=== PATIENT | female | born 1995 | race Two or more races ===

== ENCOUNTER 2024-05-14 14:04 | Inpatient (IN) | payer MEDICAID, SELFPAY ==
[2024-05-14] VITALS (14 sets, daily range): BP systolic 104–118; BP diastolic 57–85; PULSE 81–97; RESP 16–100; TEMP 36.6–37.1; O2SAT 100; BMI 19.0; BMI 18.8
--- NOTE | 2024-05-14 15:06 | PD.EDRME ---
Rapid Medical Screening Exam RME Arrival date/time: 05/14/24 14:04 29-year-old female with history of iron deficiency anemia presents to the emergency room with a chief complaint of weakness. Patient was sent over by her primary care provider for a low hemoglobin. I have greeted and performed a focused initial assessment of this patient. A comprehensive ED assessment and evaluation of the patient, analysis of all test results, and completion of the medical decision making process will be conducted by additional ED providers. Chief Complaint: Recheck/Abnormal Lab/Rx Vital signs: Vital Signs Temperature 98.0 F 05/14/24 14:49 Pulse Rate 97 05/14/24 14:49 Respiratory Rate 16 05/14/24 14:49 Blood Pressure 104/59 L 05/14/24 14:49 Pulse Oximetry (%) 100 05/14/24 14:49 Oxygen Delivery Method Room Air 05/14/24 14:49 Vital signs reviewed by provider: Yes
[2024-05-14 15:56] LABS: Basophils % (Auto) 0 % (0-2.5); Eosinophils # (Auto) 0.1 Thou/mm3 (0.0-0.5); Eosinophils % (Auto) 2 % (0-10); Immature Granulocytes % (Auto) 1 % (0-0); Immature Granulocytes Auto 0.03 Thou/mm3 (0.00-0.00); Lymphocytes # (Auto) 0.8 Thou/mm3 (1.0-4.8); Lymphocytes % (Auto) 26 % (10-50); Mean Corpuscular Hemoglobin 15.3 pg (25.0-35.0); Mean Corpuscular Volume 61 fL (80-100); Monocytes # (Auto) 0.3 Thou/mm3 (0.0-0.8); Monocytes % (Auto) 9 % (0-12); Neutrophils # (Auto) 1.9 Thou/mm3 (1.8-7.7); Neutrophils % (Auto) 62 % (37-80); Nucleated Red Blood Cell # 0.05 Thou/mm3 (0.00-0.00); Nucleated Red Blood Cell % 2 /100 WBC (0); Platelet Count 369 Thou/mm3 (140-440); Red Blood Count 1.89 Miln/mm3 (4.00-5.20); White Blood Count 3.1 Thou/mm3 (3.6-11.0)
[2024-05-14 15:59] LABS: Hematocrit 11.6 % (36.0-46.0); Hemoglobin 2.9 g/dL (12.0-16.0)
[2024-05-14 16:08] LABS: Partial Thromboplastin Time 22.2 Seconds (22.0-36.0); Prothrombin Time 11.2 Seconds (9.0-12.2)
[2024-05-14 16:21] LABS: Alanine Aminotransferase < 7 U/L (10-49); Albumin, Serum 3.2 gm/dL (3.5-5.0); Alkaline Phosphatase 50 U/L (46-116); Anion Gap 6 (7-16); Aspartate Amino Transferase < 10 U/L (0-34); BUN/Creatinine Ratio 13 Ratio (12-20); Bilirubin,Total 0.3 mg/dL (0.3-1.2); Blood Urea Nitrogen 8 mg/dL (9-23); Calcium 8.2 mg/dL (8.3-10.6); Calcium (Corrected) 8.8 mg/dL (8.5-10.1); Carbon Dioxide 20.7 mMol/L (20.0-31.0); Chloride 111 mMol/L (98-107); Creatinine (Component) 0.6 mg/dL (0.6-1.3); Estimated Creatinine Clearance 94.8 mL/min (>60); Globulin 3.2 gm/dL (2.3-3.5); Glucose 99 mg/dL (74-106); Osmolality,Calculated 273 (275-295); Potassium 3.7 mMol/L (3.4-5.1); Sodium 138 mMol/L (136-145); Total Protein 6.4 gm/dL (5.7-8.2); eGFR > 60 See Note
--- NOTE | 2024-05-14 16:55 | EDNOTE_ITS ---
<Statement entered by Rachel Almeida MD - 05/15/24 07:26> As co-signing physician, I was present and available for consult prn. I concur with the plan and care as documented by the midlevel provider. ED Recheck Abnl Lab Rx-RME/HPI General Chief Complaint: Recheck/Abnormal Lab/Rx Stated Complaint: HGB LOW Time Seen by Provider: 05/14/24 16:10 Arrival date/time: 05/14/24 14:04 RME / HPI RME / HPI narrative: 29-year-old female patient with significant history of iron deficiency anemia, last sent to us by PCP for evaluation regarding anemia. Patient's been noticing generalized body weakness, easy fatigability, dyspnea on exertion and activity, for the last 1 month. Patient denies any vomiting blood. Denies any blood in the stool denies any black tarry stool also. Patient told me that her menstruat ion is usually heavy lasting for 7 days to a month. Saw her PCP yesterday and was referred here for further management. Related Data Home Medications ?Medication ?Instructions ?Recorded ?Confirmed vitamins no.144-folic 1 tab PO DAILY 01/23/20 12/10/22 acid 400 mcg chewable tablet () ferrous sulfate 325 mg (65 mg 325 mg PO BID 01/24/20 0 12/10/22 iron) tablet (iron) Allergies Allergy/AdvReac Type Severity Reaction Status Date / Time No Known Allergies Allergy Verified 12/10/22 21:12 Review of Systems Review of Systems Narrative Review of Systems: Review of system reviewed and within normal limits except mentioned in HPI ED Exam Narrative Physical exam: VITAL SIGNS: Reviewed. GENERAL APPEARANCE: Alert and interactive, follows commands, no acute distress, HEAD AND FACE: Non-traumatic. ENT: PERRL, pale conjunctiva, eyelid no trauma, Mucous membrane moist. NECK: Supple, nontender, no nuchal rigidity. CHEST: No tenderness, no crepitus, no paradoxical movement, no retractions. LUNGS: Clear, well ventilated, symmetric, no rales, no wheezing, no ronchi, no stridor, good breath sounds bilaterally. HEART: Regular rate, regular rhythm, no murmur, no gallops. ABDOMEN: Soft, positive bowel sounds, nondistended, no guarding, nontender, no rebound, no masses, RECTAL: Deferred. GENITAL: Deferred. NEUROLOGICAL: Gross motor function intact sensory function intact, Appropriate for age. MUSCULOSKELETAL: low back nontender, full range of motion. EXTREMITIES: Nontender, full range of motion. SKIN: Color pale, dry, no rash, no lacerations, no abrasions, no contusions. LYMPHATICS: Deferred. Course Quality Measures none Orders Category Date Time Status COVID-19 Screening Questionnaire NOW Care 05/14/24 17:06 Active Decision to Admit X1 Care 05/14/24 17:06 Completed Occult Blood,Stool (Nursing) ONCE Care 05/14/24 16:55 Active Transfuse,blood/blood products ONCE Care 05/14/24 16:11 Active Consult to Gastroenterology Stat Cons 05/14/24 17:02 Ordered CBC Stat Lab 05/14/24 15:35 Completed CMP [Comprehensive Metabolic Panel] Stat Lab 05/14/24 15:35 Completed HCG Qualitative,Urine Stat Lab 05/14/24 17:08 Ordered Occult Blood, Stool (LAB) Stat Lab 05/14/24 17:05 Completed PT [Prothrombin Time with INR] Stat Lab 05/14/24 15:35 Completed PTT [Partial Thromboplastin Time] Stat Lab 05/14/24 15:35 Completed Path Review Blood Smear Stat Lab 05/14/24 15:35 Completed Type and Screen Stat Lab 05/14/24 15:35 Results prbc [Red Blood Cells] Stat Lab 05/14/24 15:35 Results Pantoprazole Inj [Protonix Inj] Med 05/14/24 17:03 Discontinued 80 mg IV X1 ONE Vital Signs Vital signs: Vital Signs Temperature 98.0 F 05/14/24 14:49 Pulse Rate 97 05/14/24 14:49 Respiratory Rate 16 05/14/24 14:49 Blood Pressure 104/59 L 05/14/24 14:49 Pulse Oximetry (%) 100 05/14/24 14:49 Oxygen Delivery Method Room Air 05/14/24 14:49 Recheck / Abnormal Lab / Rx MDM Narrative MDM Narrative:: 29-year-old female patient with significant history of iron deficiency anemia, last sent to us by PCP for evaluation regarding anemia. Patient's been noticing generalized body weakness, easy fatigability, dyspnea on exertion and activity, for the last 1 month. Patient denies any vomiting blood. Denies any blood in the stool denies any black tarry stool also. Patient told me that her menstruation is usually heavy lasting for 7 days to a month. Saw her PCP yesterday and was referred here for further management. Rectal exam was done, and tested strong positive for occult blood. There was no black tarry stool noted on the examining finger however the stool looks dark- brown. Patient is denying any abdominal pain. Patient received IV Protonix and 3 units of packed RBC. Plan of care discussed with the patient who agrees to be admitted Consulted Dr. Fuentes, GI specialist on-call, thank you Dr. Fuentes Patient data External records reviewed:: None Clinical information provided by:: patient Social determinants that could affect healthcare access:: none Patient has the following chronic illnesses:: History of anemia in the past How is presenting disease/condition affected by chronic disease/condition?: exacerbated by Evaluation data The following diagnostics were reviewed and interpreted by me:: lab results Lab and/or radiology exams considered but not ordered:: None Interpretation Summary: See results in MDM Medications / Prescriptions Medications or Prescriptions considered but not ordered:: None Medication administrations:: Medication Administration History Acetaminophen (Acetaminophen 325 Mg Tablet) 650 mg PO Q6H PRN PRN Reason: Pain 1-3 or Fever >100.1 Stop: 06/13/24 17:46 Lactated Ringer's (Lactated Ringers) 1,000 mls @ 70 mls/hr IV .[id number] ONE Stop: 05/15/24 08:20 Albumin Human (Albuminar-25 Ivpb) 25 gm in 100 mls @ 100 mls/hr IV QDAY [facility] Stop: 05/17/24 18:03 Ondansetron HCl (Ondansetron Inj 2 Mg/Ml Inj 2 Ml) 4 mg IV Q6H PRN; Protocol PRN Reason: NAUSEA OR VOMITING Stop: 06/13/24 17:46 Pantoprazole Sodium (Pantoprazole Inj 40 Mg Vial) 40 mg IVP QDAY [facility] Stop: 06/14/24 08:59 Vitamin B Complex/Vit C/Folic Acid (Vitamin B Complex Tablet) 1 tab PO DAILY [facility] Stop: 06/13/24 18:14 Discontinued Medications Pantoprazole Sodium (Pantoprazole Inj 40 Mg Vial) 80 mg IV X1 ONE Stop: 05/14/24 17:04 Last Admin: 05/14/24 17:24 Dose: 80 mg Documented By: SL Polyethylene Glycol/Electrolytes (Na [place]/Nahco3/[place]/Peg (Golytely) 4,000 Ml Btl) 4,000 ml PO X1 ONE Stop: 05/14/24 18:07 IV Protonix and 2 units of packed RBC Consultations Consultation(s) initiated? (list below): Yes Consultation #1 (Physician, Specialty, Details): Dr. Fuentes Diagnosis Recheck Differential Diagnosis: other (Upper GI bleed, severe anemia,) Most likely diagnosis given after review of the tests above:: Anemia, upper GI bleed Admission Indicated Admission indicated?: indicated Explain why admission is indicated or not indicated:: Patient is to be admitted for further management Admission Request Was there a request for admission?: Yes Admission Attestation Admission request attestation: Discussed case with [Dr Smith] from Hospitalist service regarding admission. Discussed patients ED course, exam findings, labs, and radiology results. The Hospitalist [agrees] to accept the patient for admission. Disposition Plan Disposition Plan: Admit Discharge Plan Plan Patient Disposition: Admit Acute Care w/in Hospital Disposition Comment: stable Problem List Clinical Impression: Severe anemia, Upper GI bleed
[2024-05-14 17:14] LABS: Path Review Blood Smear Sent to Pathologist
[2024-05-14 17:24] LABS: OBS Developer Expiration Date 112312026; OBS Performed By CHAVM1; OBS QC OK? Yes; Occult Blood, Stool Positive (Negative)
[2024-05-14] MEDS: PANTOPRAZOLE INJ 40 MG VIAL 80 MG IV (17:24)
--- NOTE | 2024-05-14 17:50 | XR_ITS ---
Examination: Pelvic ultrasound, transabdominal, complete Technique: Transabdominal ultrasound of the pelvis performed using grayscale imaging Date and time of exam: May 14, [id number] hrs. Indications: Anemia, irregular heavy menses months Findings: Uterus 8.0 x 4.5 x 8.7 cm Endometrial stripe 1.3 cm No uterine mass or intrauterine gestation Mild fluid in the cul-de-sac Right ovary 3.7 cm arterial flow Left ovary 5.0 cm arterial flow 3.8 cm cyst Impression: No uterine mass or intrauterine gestation Left ovarian simple cyst 3.8 x 3.0 x 3.6 cm
--- NOTE | 2024-05-14 18:03 | ESHP_ITS ---
Documentation for date of: 05/14/24 HPI History of Present Illness History of present illness: The patient is a 29-year-old female with a past medical history of iron deficiency anemia presenting to the ED on 05/14/2024 after she had been sent by her PCP for evaluation. Per the patient, she had been having generalized weakness with easy fatigability for the past month, notices that she is unable to carry out her regular activities at home including cleaning which she previously used to do every day. She also notices that she had some shortness of breath anytime she tried to do more than minimal physical activity. Although the patient does not have any chhaya rectal bleeding or hematemesis, she does mention that her menses last about 7 days a month, sometimes more. This is not a new development, she has had long and heavy menses since menarche. Since she has been iron deficient for a while, she has taken iron supplements in the past but has not had any since prior to her last , more than a year ago. She denies any abdominal pain, constipation, diarrhea or dark tarry stools. ED course: In the ED, patient was hemodynamically stable. Pertinent labs showed WBC 3.1 Hgb 2.9 with hematocrit of 11.6 MCV 61 PLT 369 normal coagulation panel sodium 138 potassium 3.7 chloride 111 BUN 8 creatinine 0.6 albumin 3.2 corrected calcium 8.8. Stool occult blood was done which was positive. GI Dr. Fuentes was consulted recommended to admit the patient for possible endoscopy/colonoscopy. PMHx-as above PSHx-none Social history-does not smoke, occasionally drinks, no illicit drug use Home meds-ferrous sulfate intermittently Review of Systems Review of Systems Narrative Review of Systems: GENERAL: Admits generalized weakness HEENT: Denies headache or visual/hearing changes. Denies nasal discharge. NEURO: Denies unusual weakness or difficulty speaking. CARDIO: Denies chest pain or palpitations. PULM: Admits occasional SOB GI: Denies abdominal pain, N/V/C/D/reflux/gas, bright red blood per rectum or melena. Reports having BMs. URO: Denies burning/itching/pain/urinary changes. MSK/EXT/SKIN: Denies joint/skeletal/muscle pain, issues/changes in upper or lower extremities, itchiness, or superficial pain. PSYCH: Cooperative, pleasant mood & affect. Exam Vital Signs Temp Pulse Resp BP Pulse Ox O2 Del Method 98.4 F 97 18 105/57 L 100 Room Air 05/14/24 17:12 05/14/24 17:12 05/14/24 17:12 05/14/24 17:12 05/14/24 17:12 05/14/24 17:12 Narrative Exam GENERAL: AAOX3, pale, afebrile, anicteric NEURO: INTERMODAL DISPATCHER grossly intact, moves extremities x4 HEENT: Moist mucosa. Eyes open, symmetrical, & clear CARDIO: No chest pain on palpation. Heart RRR, no obvious murmurs PULM: No noted coughing/dyspnea. Lungs CTA B/L GI: Abdomen soft, nondistended, no pain on palpation. BSx4 URO/CEMENT SIDE LASTER:: No further abnormalities noted. SKIN/MSK/EXT: No wounds/rashes/edema/amputations, no pain on palpation. Pedal pulses present B/L Results: Labs 05/14/24 15:35 05/14/24 15:35 Labs: Short CBC 05/14/24 Range/Units 15:35 WBC 3.1 L (3.6-11.0) Thou/mm3 Hgb 2.9 L* (12.0-16.0) g/dL Hct 11.6 L* (36.0-46.0) % Plt Count 369 (140-440) Thou/mm3 BMP 05/14/24 15:35 Sodium 138 Potassium 3.7 Chloride 111 H Carbon Dioxide 20.7 BUN 8 L Creatinine 0.6 Glucose 99 Calcium 8.2 L Liver Function 05/14/24 Range/Units 15:35 Total Bilirubin 0.3 (0.3-1.2) mg/dL AST < 10 (0-34) U/L ALT < 7 L (10-49) U/L Alkaline Phosphatase 50 (46-116) U/L Albumin 3.2 L (3.5-5.0) gm/dL Quality Measures Quality Measures none Medications Home Medications and Allergies Home Medications ?Medication ?Instructions ?Recorded ?Confirmed ?Type vitamins no.144-folic 1 tab PO DAILY 01/23/20 12/10/22 History acid 400 mcg chewable tablet () ferrous sulfate 325 mg (65 mg 325 mg PO BID 01/24/20 0 12/10/22 History iron) tablet (iron) Allergies Allergy/AdvReac Type Severity Reaction Status Date / Time No Known Allergies Allergy Verified 12/10/22 21:12 Visit Medications Acetaminophen (Acetaminophen 325 Mg Tablet) 650 mg PO Q6H PRN PRN Reason: Pain 1-3 or Fever >100.1 Stop: 06/13/24 17:46 Ondansetron HCl (Ondansetron Inj 2 Mg/Ml Inj 2 Ml) 4 mg IV Q6H PRN; Protocol PRN Reason: NAUSEA OR VOMITING Stop: 06/13/24 17:46 Pantoprazole Sodium (Pantoprazole Inj 40 Mg Vial) 40 mg IVP QDAY [facility] Stop: 06/14/24 08:59 Discontinued Medications Pantoprazole Sodium (Pantoprazole Inj 40 Mg Vial) 80 mg IV X1 ONE Stop: 05/14/24 17:04 Last Admin: 05/14/24 17:24 Dose: 80 mg Assessment & Plan Plan Summary: The patient is a 29-year-old female with past medical history of iron deficiency anemia presenting to the ED in 05/14/2024 from PCP with low hemoglobin. #Acute blood loss anemia #History of iron deficiency anemia #?GI bleed #Menorrhagia Patient was sent to the ED by her PCP after noting low hemoglobin on recent blood work. Per the patient, she had been having generalized weakness with easy fatigability for the past month, notices that she is unable to carry out her regular activities at home including cleaning which she previously used to do every day. She also notices that she had some shortness of breath anytime she tried to do more than minimal physical activity. Although the patient does not have any chhaya rectal bleeding or hematemesis, she does mention that her menses last about 7 days a month, sometimes more. This is not a new development, she has had long and heavy menses since menarche. Since she has been iron deficient for a while, she has taken iron supplements in the past but has not had any since prior to her last , more than a year ago. FOBT positive in the ED Plan: -Admit to MedSurg -Transfuse 3 PRBCs -Posttransfusion H&H -Clear liquid diet -IV Protonix 40 mg daily -Iron panel -Pelvic ultrasound -Pending beta-hCG -GI consulted, appreciate recommendations Health maintenance: Dispo: MedSurg Diet: Clear liquid diet GI: Pantoprazole DVT: Not indicated James: None Lines: Peripheral Code: Full Case was discussed with Dr Verde PGY-2 and attending physician, Dr Luis Hoskins MD PGY-1 Disclaimer: This note was dictated by speech recognition. Minor errors in police officer crime prevention may be present due to voice recognition software. Attending Provider Attestation/Addendum I reviewed labs, imaging, EKG, home medications and prior available records. Face to face evaluation was performed by me. I have personally examined the patient and discussed assessment and plan with the IM team. I reviewed the resident note and agree with the plan with exceptions as below. Acute blood loss anemia Microcytic anemia Generalized weakness Possible lower GI bleed History of heavy menstrual periods Patient came with severely reduced H&H. PRBC ordered in the ED. Follow-up H&H posttransfusion Continue to monitor H&H FOBT is positive. Discussed with GI: Will plan for colonoscopy. Started the patient on clear liquid diet/GoLytely May need further workup for her anemia in case her GI workup is negative Ordered pelvic ultrasound
[2024-05-14 18:48] LABS: HIV (1&2) Antibody Rapid Non-Reactive
[2024-05-14 19:07] LABS: Hepatitis A Antibody IgM Non Reactive (Non React); Hepatitis B Core Antibody IgM Non Reactive (Non React); Hepatitis B Surface Antigen Non Reactive (Non React); Hepatitis C Antibody Non Reactive (Non React)
[2024-05-14] MEDS: RINGERS LACTATED 1000 ML 1,000 ML 70 ML IV (19:40)
[2024-05-14] MEDS: ALBUMIN HUMAN 25% IVPB 25 GM/100 ML BTL IV (19:41)
[2024-05-14 20:13] LABS: HCG Qualitative,Urine Negative
[2024-05-14] MEDS: NA SU/NAHCO3/KC/PEG (Golytely) 4,000 ML BTL 4000 ML PO (20:38)
[2024-05-14] MEDS: VITAMIN B COMPLEX TABLET 1 TAB PO (20:39)
--- NOTE | 2024-05-14 23:06 | PD.IMCONS ---
HPI Data of Consult Requesting Physician: Mele Smith MD Primary Care Provider: SAPNA Tate Consult Narrative Reason for consult: Hemoglobin 2.9 hematocrit 11.6 History of present illness: 29-year-old female evaluated at request of the ER physician clinical trials assistant who presented the ER with a hemoglobin of 2.9 hematocrit 11.6 and a platelet count of 69,000 WBC count of 3.1 Patient has been feeling dizzy weak She was sent by the PCP to the ER She denies any history of chhaya hematemesis melena or hematochezia She does have heavy menstruation for about 7 days and bleeds heavily Pelvic ultrasound shows left ovarian cyst no other lesions Abdominal ultrasound done in the past shows no cholelithiasis and no organomegaly Patient is not on any NSAIDs or blood thinners cc:: cc: Mele Smith MD Review of Systems Review of Systems Systems Reviewed: All systems reviewed, normal except as documented Meds Home Medications and Allergies Home Medications ?Medication ?Instructions ?Recorded ?Confirmed ?Type ferrous sulfate 325 mg (65 mg 325 mg PO QDAY 01/24/20 05/15/24 History iron) tablet (iron) ergocalciferol (vitamin D2) 1,250 1,250 mcg PO QDAY 05/15/24 05/15/24 History mcg (50,000 unit) capsule vitamin B complex 1 tab PO QDAY 05/15/24 05/15/24 History Allergies Allergy/AdvReac Type Severity Reaction Status Date / Time No Known Allergies Allergy Verified 05/15/24 18:36 Exam Vital Signs Temp Pulse Resp BP Pulse Ox O2 Del Method 98.4 F 82 18 118/85 H 100 Room Air 05/14/24 22:39 05/14/24 22:52 05/14/24 22:52 05/14/24 22:39 05/14/24 22:39 05/14/24 22:39 Constitutional Comments: Pale chronically ill-appearing Routine Respiratory Exam Comments: Normal to auscultation Routine Abdominal Exam Comments: Soft nontender Results Labs 05/15/24 03:32 05/15/24 03:32 Labs: Short CBC 05/14/24 Range/Units 15:35 WBC 3.1 L (3.6-11.0) Thou/mm3 Hgb 2.9 L* (12.0-16.0) g/dL Hct 11.6 L* (36.0-46.0) % Plt Count 369 (140-440) Thou/mm3 BMP 05/14/24 15:35 Sodium 138 Potassium 3.7 Chloride 111 H Carbon Dioxide 20.7 BUN 8 L Creatinine 0.6 Glucose 99 Calcium 8.2 L Liver Function 05/14/24 Range/Units 15:35 Total Bilirubin 0.3 (0.3-1.2) mg/dL AST < 10 (0-34) U/L ALT < 7 L (10-49) U/L Alkaline Phosphatase 50 (46-116) U/L Albumin 3.2 L (3.5-5.0) gm/dL Assessment and Plan Additional Assessment & Plan Additional Plan: Anemia blood loss most likely menorrhagia by GI causes of blood loss needs to be ruled out Suggestions Initial test of choice is upper endoscopy with possible therapeutic intervention possible biopsies Consent obtained If EGD is negative we will consider doing a fiberoptic colonoscopy with possible therapeutic intervention prior to discharge Recommend ACCOUNT RESOLUTION SPECIALIST consultation I think her blood losses are because of the menorrhagia Thank you very much for the opportunity to participate in the care of this patient
[2024-05-15] VITALS (23 sets, daily range): BP systolic 107–152; BP diastolic 65–83; PULSE 79–104; RESP 11–99; TEMP 36.3–37.4; O2SAT 97–100; BMI 18.8
--- NOTE | 2024-05-15 00:24 | PC.NURSE ---
Spoke to MD Fuentes regarding pt is on Golytely and MD ordered for EGD in AM, per MD to continue the Golytely and he will decide in AM if he will do Colonoscopy as well
[2024-05-15] MEDS: ACETAMINOPHEN 325 MG TABLET 650 MG PO ×2 (00:32→20:56)
[2024-05-15 03:51] LABS: Basophils % (Auto) 0 % (0-2.5); Eosinophils % (Auto) 1 % (0-10); Hematocrit 27.5 % (36.0-46.0); Immature Granulocytes % (Auto) 2 % (0-0); Immature Granulocytes Auto 0.12 Thou/mm3 (0.00-0.00); Lymphocytes # (Auto) 0.9 Thou/mm3 (1.0-4.8); Lymphocytes % (Auto) 11 % (10-50); Mean Corpuscular HGB Conc 30.9 g/dl (31.0-37.0); Mean Corpuscular Hemoglobin 22.7 pg (25.0-35.0); Mean Corpuscular Volume 73 fL (80-100); Monocytes # (Auto) 0.3 Thou/mm3 (0.0-0.8); Monocytes % (Auto) 4 % (0-12); Neutrophils # (Auto) 6.1 Thou/mm3 (1.8-7.7); Neutrophils % (Auto) 83 % (37-80); Nucleated Red Blood Cell # 0.08 Thou/mm3 (0.00-0.00); Nucleated Red Blood Cell % 1 /100 WBC (0); Platelet Count 312 Thou/mm3 (140-440); RDW Standard Deviation 59.3 fL (36.4-46.3); Red Blood Count 3.75 Miln/mm3 (4.00-5.20); White Blood Count 7.4 Thou/mm3 (3.6-11.0)
[2024-05-15 03:54] LABS: Hemoglobin 8.5 g/dL (12.0-16.0)
[2024-05-15 04:05] LABS: Sed Rate (ESR) 9 mm/hr (0-20)
[2024-05-15 04:29] LABS: Alanine Aminotransferase 7 U/L (10-49); Albumin, Serum 3.3 gm/dL (3.5-5.0); Albumin/Globulin Ratio 1.1 (1.2-2.2); Alkaline Phosphatase 54 U/L (46-116); Anion Gap 5 (7-16); Aspartate Amino Transferase 20 U/L (0-34); BUN/Creatinine Ratio 10 Ratio (12-20); Bilirubin,Total 1.7 mg/dL (0.3-1.2); Blood Urea Nitrogen 6 mg/dL (9-23); C-Reactive Protein < 0.4 mg/dL (0.0-0.9); Calcium 8.4 mg/dL (8.3-10.6); Carbon Dioxide 21.1 mMol/L (20.0-31.0); Chloride 113 mMol/L (98-107); Creatinine (Component) 0.6 mg/dL (0.6-1.3); Estimated Creatinine Clearance 94.2 mL/min (>60); Globulin 2.9 gm/dL (2.3-3.5); Glucose 91 mg/dL (74-106); Magnesium 1.7 mg/dL (1.6-2.6); Osmolality,Calculated 275 (275-295); Phosphorous 2.5 mg/dL (2.4-5.1); Potassium 3.9 mMol/L (3.4-5.1); Sodium 139 mMol/L (136-145); Total Protein 6.2 gm/dL (5.7-8.2); eGFR > 60 See Note
[2024-05-15 04:30] LABS: Iron 202 mcg/dL (50-170); Percent Iron Saturation 77 % (20-55); Total Iron Binding Capacity 262 mcg/dL (250-425); Unsaturated Iron Binding 60 (225-295)
[2024-05-15] MEDS: ALBUMIN HUMAN 25% IVPB 25 GM/100 ML BTL IV (08:58)
[2024-05-15] MEDS: VITAMIN B COMPLEX TABLET 1 TAB PO (08:59)
[2024-05-15] MEDS: PANTOPRAZOLE INJ 40 MG VIAL IVP ×2 (08:59→20:48)
--- NOTE | 2024-05-15 15:13 | PD.ADDPROG ---
Addendum Progress Note Addendum Date of report being addended: 05/15/24 Narrative: Attending's attestation: None I reviewed labs, imaging, EKG, home medications and prior available records. Face to face evaluation was performed by me. I have personally examined the patient and discussed assessment and plan with the IM team. I reviewed the resident note and agree with the plan with exceptions as below. Acute blood loss anemia Microcytic anemia Generalized weakness Possible lower GI bleed History of heavy menstrual periods Patient came with severely reduced H&H. 3 PRBC ordered in the ED. Follow-up H&H posttransfusion: Improved to 8.5 Continue to monitor H&H: Stable FOBT is positive. Discussed with GI: Will plan for EGD. N.p.o. prior to the procedure May need further workup for her anemia in case her GI workup is negative Ordered pelvic ultrasound: Showed ovarian cyst but no masses, gestational bodies, or foreign bodies
--- NOTE | 2024-05-15 15:34 | ESPR_ITS ---
Documentation for date of: 05/15/24 Subjective Subjective Interval history: Patient seen at bedside. No acute overnight events. She received 3 units of PRBCs and posttransfusion H&H was 8.5. bHCG returned positive negative as well as viral antibodies. Pelvic ultrasound showed left ovarian simple cyst. GI Dr. Fuentes consulted, patient is scheduled for upper endoscopy. In the interim, can she is n.p.o., will continue Protonix and IV fluids for hydration as well as IV iron infusion. Exam Vital Signs Temp Pulse Resp BP Pulse Ox O2 Del Method 99.4 F 87 18 130/83 98 Room Air 05/15/24 12:00 05/15/24 12:00 05/15/24 12:00 05/15/24 12:00 05/15/24 12:05/15/24 12:00 Narrative Exam GENERAL: AAOX3, pale, afebrile, anicteric NEURO: PILLOWCASE FOLDER grossly intact, moves extremities x4 HEENT: Moist mucosa. Eyes open, symmetrical, & clear CARDIO: No chest pain on palpation. Heart RRR, no obvious murmurs PULM: No noted coughing/dyspnea. Lungs CTA B/L GI: Abdomen soft, nondistended, no pain on palpation. BSx4 URO/DIRECTOR OF STRATEGIC COMMUNICATIONS:: No further abnormalities noted. SKIN/MSK/EXT: No wounds/rashes/edema/amputations, no pain on palpation. Pedal pulses present B/L Objective Labs 05/16/24 05:11 05/16/24 05:11 Labs: Laboratory Results - last 24 hr 05/14/24 05/14/24 05/14/24 15:35 15:36 17:05 WBC 3.1 L RBC 1.89 L* Hgb 2.9 L* Hct 11.6 L* MCV 61 L MCH 15.3 L MCHC 25.0 L RDW Std Deviation 46.0 Plt Count 369 Neut % (Auto) 62 Lymph % (Auto) 26 [place] % (Auto) 9 Eos % (Auto) 2 Baso % (Auto) 0 Neut # (Auto) 1.9 Lymph # (Auto) 0.8 L [place] # (Auto) 0.3 Eos # (Auto) 0.1 Baso # (Auto) 0.0 Immature Gran # (Auto) 0.03 H Absolute Nucleated RBC 0.05 H Immature Gran % 1 H Nucleated RBC % 2 H Smear Path Review Sent to Pathologist ESR PT 11.2 INR 1.0 APTT 22.2 Sodium 138 Potassium 3.7 Chloride 111 H Carbon Dioxide 20.7 Anion Gap 6 L BUN 8 L Creatinine 0.6 Estim Creat Clear Calc 94.8 eGFR > 60 BUN/Creatinine Ratio 13 Glucose 99 Calculated Osmolality 273 L Calcium 8.2 L Corrected Calcium 8.8 Phosphorus Magnesium Iron TIBC Iron Saturation Unsat Iron Binding Total Bilirubin 0.3 AST < 10 ALT < 7 L Alkaline Phosphatase 50 C-Reactive Prot, Quant Total Protein 6.4 Albumin 3.2 L Globulin 3.2 Albumin/Globulin Ratio 1.0 L Urine HCG, Qual Stool Occult Blood Positive A Hepatitis A IgM Ab Non Reactive Hep Bs Antigen Non Reactive Hep B Core IgM Ab Non Reactive Hepatitis C Antibody Non Reactive HIV 1&2 Antibody Rapid Non-Reactive Blood Type A Negative Antibody Screen NEGATIVE Crossmatch See Detail Blood Bank Wristband ID Yes 05/14/24 05/15/24 19:44 03:32 WBC 7.4 D RBC 3.75 L Hgb 8.5 L D Hct 27.5 L D MCV 73 L MCH 22.7 L MCHC 30.9 L RDW Std Deviation 59.3 H Plt Count 312 D Neut % (Auto) 83 H Lymph % (Auto) 11 [place] % (Auto) 4 Eos % (Auto) 1 Baso % (Auto) 0 Neut # (Auto) 6.1 Lymph # (Auto) 0.9 L [place] # (Auto) 0.3 Eos # (Auto) 0.0 Baso # (Auto) 0.0 Immature Gran # (Auto) 0.12 H Absolute Nucleated RBC 0.08 H Immature Gran % 2 H Nucleated RBC % 1 H Smear Path Review ESR 9 PT INR APTT Sodium 139 Potassium 3.9 Chloride 113 H Carbon Dioxide 21.1 Anion Gap 5 L BUN 6 L Creatinine 0.6 Estim Creat Clear Calc 94.2 eGFR > 60 BUN/Creatinine Ratio 10 L Glucose 91 Calculated Osmolality 275 Calcium 8.4 Corrected Calcium 9.0 Phosphorus 2.5 Magnesium 1.7 Iron 202 H TIBC 262 Iron Saturation 77 H Unsat Iron Binding 60 L Total Bilirubin 1.7 H D AST 20 ALT 7 L Alkaline Phosphatase 54 C-Reactive Prot, Quant < 0.4 Total Protein 6.2 Albumin 3.3 L Globulin 2.9 Albumin/Globulin Ratio 1.1 L Urine HCG, Qual Negative Stool Occult Blood Hepatitis A IgM Ab Hep Bs Antigen Hep B Core IgM Ab Hepatitis C Antibody HIV 1&2 Antibody Rapid Blood Type Antibody Screen Crossmatch Blood Bank Wristband ID Quality Measures Quality Measures none Assessment & Plan Assessment Current Active Medications: Generic Name Dose Route Start Last Admin Trade Name Venkat PRN Reason Stop Dose Admin Acetaminophen 650 mg 05/14/24 17:47 05/15/24 00:32 Acetaminophen 325 Mg Tablet PO 06/13/24 17:46 650 mg Q6H PRN Administration Pain 1-3 or Fever >100.1 Dextrose/Sodium Chloride 1,000 mls @ 60 mls/hr 05/15/24 15:30 D5-Ns IV 06/14/24 15:29 .[id number] DAKSHA Iron Sucrose 200 mg 05/15/24 15:30 Iron Sucrose Cplx Inj 20 Mg/Ml Vial 5 Ml IVP 05/19/24 15:29 DAILY DAKSHA Ondansetron HCl 4 mg 05/14/24 17:47 Ondansetron Inj 2 Mg/Ml Inj 2 Ml IV 06/13/24 17:46 Q6H PRN NAUSEA OR VOMITING Protocol Pantoprazole Sodium 40 mg 05/15/24 21:00 Pantoprazole Inj 40 Mg Vial IVP 06/14/24 20:59 BID DAKSHA Vitamin B Complex/Vit C/Folic Acid 1 tab 05/14/24 18:15 05/15/24 08:59 Vitamin B Complex Tablet PO 06/13/24 18:14 1 tab DAILY DAKSHA Administration Plan Summary: The patient is a 29-year-old female with past medical history of iron deficiency anemia presenting to the ED in 05/14/2024 from PCP with low hemoglobin. #Acute blood loss anemia #History of iron deficiency anemia #?GI bleed #Menorrhagia Patient was sent to the ED by her PCP after noting low hemoglobin on recent blood work. Per the patient, she had been having generalized weakness with easy fatigability for the past month, notices that she is unable to carry out her regular activities at home including cleaning which she previously used to do every day. She also notices that she had some shortness of breath anytime she tried to do more than minimal physical activity. Although the patient does not have any chhaya rectal bleeding or hematemesis, she does mention that her menses last about 7 days a month, sometimes more. This is not a new development, she has had long and heavy menses since menarche. Since she has been iron deficient for a while, she has taken iron supplements in the past but has not had any since prior to her last , more than a year ago. FOBT positive in the ED 05/15/2024- Patient is currently stable, posttransfusion H&H after 3 units of pRBCs- 8.5 GI consulted, patient is scheduled for upper endoscopy Plan: -NPO -IVF D5-NS @ 60cc/hr -IV Protonix 40 mg daily -GI consulted, appreciate recommendations Health maintenance: Dispo: MedSurg Diet: NPO for EGD GI: Pantoprazole DVT: Not indicated James: None Lines: Peripheral Code: Full Case was discussed with Dr Verde PGY-2 and attending physician, Dr Luis Hoskins MD PGY-1 Disclaimer: This note was dictated by speech recognition. Minor errors in cinder crane operator may be present due to voice recognition software. Attending Provider Attestation/Addendum I reviewed labs, imaging, EKG, home medications and prior available records. Face to face evaluation was performed by me. I have personally examined the patient and discussed assessment and plan with the IM team. I reviewed the resident note and agree with the plan with exceptions as below. See my addendum in a separate addendum note
[2024-05-15] MEDS: DEXTROSE 5%-NS 1,000 ML 60 ML IV (16:28)
[2024-05-15] MEDS: IRON SUCROSE CPLX INJ 20 MG/ML VIAL 5 ML 200 MG IVP (16:30)
--- NOTE | 2024-05-15 18:42 | SUR.PHASEI ---
184 Patient arrived to recovery, report received from Nereyda BURKS
--- NOTE | 2024-05-15 19:15 | SUR.PHASEI ---
1910 Report given to Alyse BURKS, patient meets discharge criteria from recovery, awake and alert, breathing unlabored, vital signs stable, denies pain, patient drinking water; tolerating well, denies nausea 1914 Patient transported via bed to room 371 without incident, patient able to ambulate from [place] to restroom, patient voided in the restroom, patient ambulated from the restroom to bed with standby assist from this junior underwriter, patient resting comfortably in her bed with her at bedside when this junior underwriter left patients room, Alyse BURKS in room with patient as well
[2024-05-15] MEDS: NA SU/NAHCO3/KC/PEG (Golytely) 4,000 ML BTL 4000 ML PO (20:48)
[2024-05-16] VITALS (18 sets, daily range): BP systolic 107–143; BP diastolic 60–89; PULSE 66–116; RESP 15–98; TEMP 36.2–37.7; O2SAT 96–100
[2024-05-16 06:01] LABS: Basophils % (Auto) 1 % (0-2.5); Eosinophils % (Auto) 1 % (0-10); Hematocrit 26.4 % (36.0-46.0); Immature Granulocytes % (Auto) 2 % (0-0); Immature Granulocytes Auto 0.08 Thou/mm3 (0.00-0.00); Lymphocytes # (Auto) 0.8 Thou/mm3 (1.0-4.8); Lymphocytes % (Auto) 15 % (10-50); Mean Corpuscular HGB Conc 31.4 g/dl (31.0-37.0); Mean Corpuscular Volume 73 fL (80-100); Monocytes # (Auto) 0.3 Thou/mm3 (0.0-0.8); Monocytes % (Auto) 7 % (0-12); Neutrophils # (Auto) 3.8 Thou/mm3 (1.8-7.7); Neutrophils % (Auto) 76 % (37-80); Nucleated Red Blood Cell # 0.11 Thou/mm3 (0.00-0.00); Nucleated Red Blood Cell % 2 /100 WBC (0); Platelet Count 239 Thou/mm3 (140-440); RDW Standard Deviation 60.8 fL (36.4-46.3); Red Blood Count 3.61 Miln/mm3 (4.00-5.20)
[2024-05-16 06:09] LABS: Hemoglobin 8.3 g/dL (12.0-16.0)
[2024-05-16 06:45] LABS: Alanine Aminotransferase < 7 U/L (10-49); Albumin/Globulin Ratio 1.2 (1.2-2.2); Alkaline Phosphatase 45 U/L (46-116); Anion Gap 8 (7-16); Aspartate Amino Transferase 12 U/L (0-34); BUN/Creatinine Ratio 9 Ratio (12-20); Bilirubin,Total 0.8 mg/dL (0.3-1.2); Blood Urea Nitrogen 6 mg/dL (9-23); Calcium 8.2 mg/dL (8.3-10.6); Carbon Dioxide 21.4 mMol/L (20.0-31.0); Chloride 110 mMol/L (98-107); Creatinine (Component) 0.7 mg/dL (0.6-1.3); Estimated Creatinine Clearance 80.7 mL/min (>60); Globulin 2.6 gm/dL (2.3-3.5); Glucose 83 mg/dL (74-106); Magnesium 1.6 mg/dL (1.6-2.6); Osmolality,Calculated 274 (275-295); Phosphorous 3.1 mg/dL (2.4-5.1); Potassium 3.5 mMol/L (3.4-5.1); Sodium 139 mMol/L (136-145); Total Protein 5.6 gm/dL (5.7-8.2); eGFR > 60 See Note
[2024-05-16] MEDS: PANTOPRAZOLE INJ 40 MG VIAL IVP ×2 (09:01→20:38)
[2024-05-16] MEDS: VITAMIN B COMPLEX TABLET 1 TAB PO (09:01)
[2024-05-16 11:00] LABS: Immature Reticulocyte Fraction 44.6 % (3.0-15.9); Reticulocyte % (Auto) 2.2 % (0.5-1.5); Reticulocyte Absolute Auto 80.4 Biln/L (25.0-75.0); Reticulocyte Hgb Content 18.8 pg (28.0-35.0)
[2024-05-16 11:14] LABS: LDH (Lactate Dehydrogenase) 215 U/L (120-246)
--- NOTE | 2024-05-16 14:20 | ESPR_ITS ---
Documentation for date of: 05/16/24 Subjective Subjective Interval history: Patient was seen and examined at bedside. No acute overnight events. Today her hemoglobin 9.3. Patient reported bloody bowel movement in the morning. Patient underwent EGD yesterday showing nonerosive gastritis. No source of bleeding identified. Patient was started on GoLytely and CLD for upcoming colonoscopy. Will continue current management and monitor patient. Exam Vital Signs Temp Pulse Resp BP Pulse Ox O2 Del Method O2 Flow Rate 97.1 F 86 17 108/61 98 Room Air 3 05/16/24 12:00 05/16/24 12:00 05/16/24 12:05/16/24 12:05/16/24 12:05/16/24 12:05/15/24 18:35 Narrative Exam Gen: Well-developed and well-nourished. HEENT: NCAT, PERRLA, EOMI, MMM, anicteric conjunctivae. CVS: normal S1 and S2. RRR. No M/R/G. Resp: CTA B/L. No rhonchi, rales, crackles or wheezing. Abd: soft, non-tender, non-distended. BS+ in all 4 quadrants. MSK: Good ROM in BUE & BLE. No edema or rash. Neuro: CN II-XII grossly intact. Strength 5/5 in BUE & BLE. Alert and oriented x3. Psych: appropriate mood and affect. Objective Labs 05/16/24 05:11 05/16/24 05:11 Labs: Laboratory Results - last 24 hr 05/16/24 05:11 WBC 5.0 RBC 3.61 L Hgb 8.3 L Hct 26.4 L MCV 73 L MCH 23.0 L MCHC 31.4 RDW Std Deviation 60.8 H Plt Count 239 D Neut % (Auto) 76 Lymph % (Auto) 15 [place] % (Auto) 7 Eos % (Auto) 1 Baso % (Auto) 1 Neut # (Auto) 3.8 Lymph # (Auto) 0.[address] [place] # (Auto) 0.3 Eos # (Auto) 0.0 Baso # (Auto) 0.0 Immature Gran # (Auto) 0.08 H Absolute Nucleated RBC 0.11 H Immature Gran % 2 H Nucleated RBC % 2 H Retic Count (auto) 2.2 H Absolute Retic 80.4 H Immature Retic Fraction 44.6 H Retic Hgb Content CHr 18.8 L Sodium 139 Potassium 3.5 Chloride 110 H Carbon Dioxide 21.4 Anion Gap 8 BUN 6 L Creatinine 0.7 Estim Creat Clear Calc 80.7 eGFR > 60 BUN/Creatinine Ratio 9 L Glucose 83 Calculated Osmolality 274 L Calcium 8.2 L Corrected Calcium 9.0 Phosphorus 3.1 Magnesium 1.6 Total Bilirubin 0.8 D AST 12 ALT < 7 L Alkaline Phosphatase 45 L Lactate Dehydrogenase 215 Total Protein 5.6 L Albumin 3.0 L Globulin 2.6 Albumin/Globulin Ratio 1.2 Quality Measures Quality Measures none Assessment & Plan Assessment Current Active Medications: Generic Name Dose Route Start Last Admin Trade Name Freq PRN Reason Stop Dose Admin Acetaminophen 650 mg 05/14/24 17:47 05/15/24 20:56 Acetaminophen 325 Mg Tablet PO 06/13/24 17:46 650 mg Q6H PRN Administration Pain 1-3 or Fever >100.1 Iron Sucrose 200 mg 05/15/24 15:30 05/16/24 09:02 Iron Sucrose Cplx Inj 20 Mg/Ml Vial 5 Ml IVP 05/19/24 15:29 Not Given DAILY DAKSHA Ondansetron HCl 4 mg 05/14/24 17:47 Ondansetron Inj 2 Mg/Ml Inj 2 Ml IV 06/13/24 17:46 Q6H PRN NAUSEA OR VOMITING Protocol Pantoprazole Sodium 40 mg 05/15/24 21:00 05/16/24 09:01 Pantoprazole Inj 40 Mg Vial IVP 06/14/24 20:59 40 mg BID DAKSHA Administration Vitamin B Complex/Vit C/Folic Acid 1 tab 05/14/24 18:15 05/16/24 09:01 Vitamin B Complex Tablet PO 06/13/24 18:14 1 tab DAILY DAKSHA Administration Plan Summary: The patient is a 29-year-old female with past medical history of iron deficiency anemia presenting to the ED in 05/14/2024 from PCP with low hemoglobin. #Acute blood loss anemia #History of iron deficiency anemia #GI bleed #Menorrhagia Patient was sent to the ED by her PCP after noting low hemoglobin on recent blood work. Per the patient, she had been having generalized weakness with easy fatigability for the past month, notices that she is unable to carry out her regular activities at home including cleaning which she previously used to do every day. She also notices that she had some shortness of breath anytime she tried to do more than minimal physical activity. Although the patient does not have any chhaya rectal bleeding or hematemesis, she does mention that her menses last about 7 days a month, sometimes more. This is not a new development, she has had long and heavy menses since menarche. Since she has been iron deficient for a while, she has taken iron supplements in the past but has not had any since prior to her last , more than a year ago. FOBT positive in the ED 05/15/2024- Patient is currently stable, posttransfusion H&H after 3 units of pRBCs- 8.5 GI consulted, EGD showed nonerosive gastritis. Plan: -CLD. -GoLytely. -Pending colonoscopy. -IVF D5-NS @ 60cc/hr. -IV Protonix 40 mg daily. -GI consulted, appreciate recommendations. Health maintenance: Dispo: MedSurg Diet: CLD. GI: Pantoprazole DVT: Not indicated James: None Lines: Peripheral Code: Full Plan of care discussed with attending Dr. Blackmon. Neil Verde MD, PGY 2. Disclaimer: This note was dictated by speech recognition. Minor errors in tandem mill operator may be present due to voice recognition software.
--- NOTE | 2024-05-16 17:30 | PC.NURSE ---
Pt toColonoscopy via kellie with Adriana Rockwell
--- NOTE | 2024-05-16 18:27 | SUR.PHASEI ---
1827 Patient arrived to recovery, report received from Adriana BURKS
--- NOTE | 2024-05-16 19:10 | SUR.PHASEI ---
1910 Report given to Maddison BURKS, patient meets discharge criteria from recovery, awake and alert, breathing unlabored, vital signs stable, denies pain and nausea, patient voided in the restroom prior to discharge, patient transported via gurney back to room 371 without incident.
[2024-05-16] MEDS: sulfaSALAzine 500 MG TABLET PO (20:38)
[2024-05-17] VITALS: BP 104/64; PULSE 98; RESP 16; TEMP 36.3; O2SAT 99
[2024-05-17 04:00] VITALS: BP 97/66; PULSE 74; RESP 16; TEMP 36.6; O2SAT 97
[2024-05-17 05:46] LABS: Basophils % (Auto) 0 % (0-2.5); Eosinophils % (Auto) 0 % (0-10); Hematocrit 32.2 % (36.0-46.0); Hemoglobin 9.7 g/dL (12.0-16.0); Immature Granulocytes % (Auto) 0 % (0-0); Immature Granulocytes Auto 0.04 Thou/mm3 (0.00-0.00); Lymphocytes # (Auto) 0.7 Thou/mm3 (1.0-4.8); Lymphocytes % (Auto) 7 % (10-50); Mean Corpuscular HGB Conc 30.1 g/dl (31.0-37.0); Mean Corpuscular Hemoglobin 22.7 pg (25.0-35.0); Mean Corpuscular Volume 75 fL (80-100); Monocytes # (Auto) 0.1 Thou/mm3 (0.0-0.8); Monocytes % (Auto) 1 % (0-12); Neutrophils # (Auto) 8.7 Thou/mm3 (1.8-7.7); Neutrophils % (Auto) 91 % (37-80); Nucleated Red Blood Cell # 0.02 Thou/mm3 (0.00-0.00); Nucleated Red Blood Cell % 0 /100 WBC (0); Platelet Count 312 Thou/mm3 (140-440); RDW Standard Deviation 63.6 fL (36.4-46.3); Red Blood Count 4.27 Miln/mm3 (4.00-5.20); White Blood Count 9.6 Thou/mm3 (3.6-11.0)
[2024-05-17 07:44] LABS: Alanine Aminotransferase < 7 U/L (10-49); Albumin, Serum 3.4 gm/dL (3.5-5.0); Albumin/Globulin Ratio 1.1 (1.2-2.2); Alkaline Phosphatase 60 U/L (46-116); Anion Gap 11 (7-16); Aspartate Amino Transferase 14 U/L (0-34); BUN/Creatinine Ratio 10 Ratio (12-20); Bilirubin,Total 0.6 mg/dL (0.3-1.2); Blood Urea Nitrogen 7 mg/dL (9-23); Calcium 8.5 mg/dL (8.3-10.6); Chloride 106 mMol/L (98-107); Creatinine (Component) 0.7 mg/dL (0.6-1.3); Estimated Creatinine Clearance 80.7 mL/min (>60); Glucose 126 mg/dL (74-106); Osmolality,Calculated 277 (275-295); Phosphorous 4.9 mg/dL (2.4-5.1); Potassium 3.5 mMol/L (3.4-5.1); Sodium 139 mMol/L (136-145); Total Protein 6.4 gm/dL (5.7-8.2); eGFR > 60 See Note
[2024-05-17 08:00] VITALS: BP 107/59; PULSE 74; RESP 16; TEMP 36.2; O2SAT 99
[2024-05-17] MEDS: IRON SUCROSE CPLX INJ 20 MG/ML VIAL 5 ML 200 MG IVP (08:23)
[2024-05-17] MEDS: FOLIC ACID 1 MG TABLET PO (08:23)
[2024-05-17] MEDS: azaTHIOprine 50 MG TABLET PO (08:23)
[2024-05-17] MEDS: VITAMIN B COMPLEX TABLET 1 TAB PO (08:23)
[2024-05-17] MEDS: sulfaSALAzine 500 MG TABLET PO ×2 (08:23→20:40)
[2024-05-17] MEDS: PANTOPRAZOLE INJ 40 MG VIAL IVP ×2 (08:24→20:41)
[2024-05-17 11:52] VITALS: BP 106/62; PULSE 82; RESP 16; TEMP 36.1; O2SAT 99
--- NOTE | 2024-05-17 12:25 | ESPR_ITS ---
Documentation for date of: 05/17/24 Subjective Subjective Interval history: Patient was seen and examined at bedside. No acute overnight events. Yesterday patient underwent colonoscopy showing ulcerative colitis involving entire colon. She was started on azathioprine, folic acid, methylprednisolone 40 mg every 12 hours, sulfasalazine 500 mg twice daily. She denies any bowel movements today. Hemoglobin is stable, today at 9.7. Will continue current management and monitor patient. Exam Vital Signs Temp Pulse Resp BP Pulse Ox O2 Del Method O2 Flow Rate 97 F 82 16 106/62 99 Room Air 3 05/17/24 11:52 05/17/24 11:52 05/17/24 11:52 05/17/24 11:52 05/17/24 11:52 05/17/24 11:52 05/16/24 18:10 Narrative Exam Gen: Well-developed and well-nourished. HEENT: NCAT, PERRLA, EOMI, MMM, anicteric conjunctivae. CVS: normal S1 and S2. RRR. No M/R/G. Resp: CTA B/L. No rhonchi, rales, crackles or wheezing. Abd: soft, non-tender, non-distended. BS+ in all 4 quadrants. MSK: Good ROM in BUE & BLE. No edema or rash. Neuro: CN II-XII grossly intact. Strength 5/5 in BUE & BLE. Alert and oriented x3. Psych: appropriate mood and affect. Objective Labs 05/17/24 04:29 05/17/24 04:29 Labs: Laboratory Results - last 24 hr 05/17/24 04:29 WBC 9.6 D RBC 4.27 Hgb 9.7 L Hct 32.2 L MCV 75 L MCH 22.7 L MCHC 30.1 L RDW Std Deviation 63.6 H Plt Count 312 D Neut % (Auto) 91 H Lymph % (Auto) 7 L [place] % (Auto) 1 Eos % (Auto) 0 Baso % (Auto) 0 Neut # (Auto) 8.7 H Lymph # (Auto) 0.7 L [place] # (Auto) 0.1 Eos # (Auto) 0.0 Baso # (Auto) 0.0 Immature Gran # (Auto) 0.04 H Absolute Nucleated RBC 0.02 H Immature Gran % 0 Nucleated RBC % 0 Sodium 139 Potassium 3.5 Chloride 106 Carbon Dioxide 22.0 Anion Gap 11 BUN 7 L Creatinine 0.7 Estim Creat Clear Calc 80.7 eGFR > 60 BUN/Creatinine Ratio 10 L Glucose 126 H D Calculated Osmolality 277 Calcium 8.5 Corrected Calcium 9.0 Phosphorus 4.9 Magnesium 2.0 Total Bilirubin 0.6 AST 14 ALT < 7 L Alkaline Phosphatase 60 D Total Protein 6.4 Albumin 3.4 L Globulin 3.0 Albumin/Globulin Ratio 1.1 L Quality Measures Quality Measures none Assessment & Plan Assessment Current Active Medications: Generic Name Dose Route Start Last Admin Trade Name Freq PRN Reason Stop Dose Admin Acetaminophen 650 mg 05/14/24 17:47 05/15/24 20:56 Acetaminophen 325 Mg Tablet PO 06/13/24 17:46 650 mg Q6H PRN Administration Pain 1-3 or Fever >100.1 Azathioprine 50 mg 05/17/24 09:00 05/17/24 08:23 Azathioprine 50 Mg Tablet PO 06/16/24 08:59 50 mg QDAY DAKSHA Administration Folic Acid 1 mg 05/17/24 09:00 05/17/24 08:23 Folic Acid 1 Mg Tablet PO 06/16/24 08:59 1 mg QDAY DAKSHA Administration Iron Sucrose 200 mg 05/15/24 15:30 05/17/24 08:23 Iron Sucrose Cplx Inj 20 Mg/Ml Vial 5 Ml IVP 05/19/24 15:29 200 mg DAILY DAKSHA Administration Methylprednisolone Sodium Succinate 40 mg 05/16/24 21:00 05/17/24 08:24 Methylprednisolone Sod Succ 40 Mg Vial IV 06/15/24 20:59 40 mg Q12HR DAKSHA Administration Ondansetron HCl 4 mg 05/14/24 17:47 Ondansetron Inj 2 Mg/Ml Inj 2 Ml IV 06/13/24 17:46 Q6H PRN NAUSEA OR VOMITING Protocol Pantoprazole Sodium 40 mg 05/15/24 21:00 05/17/24 08:24 Pantoprazole Inj 40 Mg Vial IVP 06/14/24 20:59 40 mg BID DAKSHA Administration Sulfasalazine 500 mg 05/16/24 21:00 05/17/24 08:23 Sulfasalazine 500 Mg Tablet PO 06/15/24 20:59 500 mg BID DAKSHA Administration Vitamin B Complex/Vit C/Folic Acid 1 tab 05/14/24 18:15 05/17/24 08:23 Vitamin B Complex Tablet PO 06/13/24 18:14 1 tab DAILY DAKSHA Administration Plan The patient is a 29-year-old female with past medical history of iron deficiency anemia presenting to the ED in 05/14/2024 from PCP with low hemoglobin. #Ulcerative colitis, newly diagnosed. #Acute blood loss anemia, improved. #History of iron deficiency anemia. #Lower GI bleed. Patient was sent to the ED by her PCP after noting low hemoglobin on recent blood work. Per the patient, she had been having generalized weakness with easy fatigability for the past month, notices that she is unable to carry out her regular activities at home including cleaning which she previously used to do every day. She also notices that she had some shortness of breath anytime she tried to do more than minimal physical activity. Although the patient does not have any chhaya rectal bleeding or hematemesis, she does mention that her menses last about 7 days a month, sometimes more. This is not a new development, she has had long and heavy menses since menarche. Since she has been iron deficient for a while, she has taken iron supplements in the past but has not had any since prior to her last , more than a year ago. FOBT positive in the ED 05/15/2024- Patient is currently stable, posttransfusion H&H after 3 units of pRBCs- 8.5 GI consulted, EGD showed nonerosive gastritis. Colonoscopy showed ulcerative colitis involving entire colon. Plan: -Started on azathioprine 50 mg daily, methylprednisolone 40 mg IV every 12 hours, sulfasalazine 500 mg twice daily, folic acid supplementation. -Continue IV iron sucrose 200 mg daily. -IV Protonix 40 mg daily. -Started on low fiber diet. -GI consulted, appreciate recommendations. Health maintenance: Dispo: MedSurg Diet: Low fiber diet. GI: Pantoprazole DVT: Not indicated James: None Lines: Peripheral Code: Full Plan of care discussed with attending Dr. Blackmon. Neil Verde MD, PGY 2. Disclaimer: This note was dictated by speech recognition. Minor errors in quality consultant may be present due to voice recognition software.
[2024-05-17 16:00] VITALS: BP 103/60; PULSE 67; RESP 16; TEMP 36.4; O2SAT 97
--- NOTE | 2024-05-17 18:21 | PD.IMPROG ---
Documentation for date of: 05/17/24 Subjective Subjective Interval history: Patient on intravenous Solu-Medrol ordered sulfasalazine folic acid and azathioprine continue current management Exam Vital Signs Temp Pulse Resp BP Pulse Ox O2 Del Method O2 Flow Rate 97.6 F 67 16 103/60 97 Room Air 3 05/17/24 16:00 05/17/24 16:00 05/17/24 16:00 05/17/24 16:00 05/17/24 16:00 05/17/24 16:00 05/16/24 18:10 Objective Labs 05/17/24 04:29 05/17/24 04:29 Labs: Laboratory Results - last 24 hr 05/17/24 04:29 WBC 9.6 D RBC 4.27 Hgb 9.7 L Hct 32.2 L MCV 75 L MCH 22.7 L MCHC 30.1 L RDW Std Deviation 63.6 H Plt Count 312 D Neut % (Auto) 91 H Lymph % (Auto) 7 L [place] % (Auto) 1 Eos % (Auto) 0 Baso % (Auto) 0 Neut # (Auto) 8.7 H Lymph # (Auto) 0.7 L [place] # (Auto) 0.1 Eos # (Auto) 0.0 Baso # (Auto) 0.0 Immature Gran # (Auto) 0.04 H Absolute Nucleated RBC 0.02 H Immature Gran % 0 Nucleated RBC % 0 Sodium 139 Potassium 3.5 Chloride 106 Carbon Dioxide 22.0 Anion Gap 11 BUN 7 L Creatinine 0.7 Estim Creat Clear Calc 80.7 eGFR > 60 BUN/Creatinine Ratio 10 L Glucose 126 H D Calculated Osmolality 277 Calcium 8.5 Corrected Calcium 9.0 Phosphorus 4.9 Magnesium 2.0 Total Bilirubin 0.6 AST 14 ALT < 7 L Alkaline Phosphatase 60 D Total Protein 6.4 Albumin 3.4 L Globulin 3.0 Albumin/Globulin Ratio 1.1 L Impressions Impression: # Lopez ulcerative colitis Continue current management with IV steroids oral sulfasalazine folic acid and azathioprine Assessment & Plan A&P Narrative Anemia blood loss most likely menorrhagia by GI causes of blood loss needs to be ruled out Suggestions Initial test of choice is upper endoscopy with possible therapeutic intervention possible biopsies Consent obtained If EGD is negative we will consider doing a fiberoptic colonoscopy with possible therapeutic intervention prior to discharge Recommend ALKYLATION OPERATOR consultation I think her blood losses are because of the menorrhagia Thank you very much for the opportunity to participate in the care of this patient Time Spent With Patient Time: Total time spent is greater than 50% in coordination of care (as documented) at patient's floor/unit and/or counseling patient:
[2024-05-17 20:00] VITALS: BP 112/70; PULSE 94; RESP 18; TEMP 36.7; O2SAT 99
[2024-05-18] VITALS: BP 100/68; PULSE 67; RESP 17; TEMP 36.1; O2SAT 95
[2024-05-18 04:00] VITALS: BP 108/77; PULSE 72; RESP 17; TEMP 36.6; O2SAT 99
[2024-05-18 06:25] LABS: Basophils % (Auto) 0 % (0-2.5); Eosinophils % (Auto) 0 % (0-10); Hematocrit 27.5 % (36.0-46.0); Immature Granulocytes % (Auto) 2 % (0-0); Lymphocytes # (Auto) 0.8 Thou/mm3 (1.0-4.8); Lymphocytes % (Auto) 12 % (10-50); Mean Corpuscular HGB Conc 29.8 g/dl (31.0-37.0); Mean Corpuscular Hemoglobin 23.2 pg (25.0-35.0); Mean Corpuscular Volume 78 fL (80-100); Monocytes # (Auto) 0.2 Thou/mm3 (0.0-0.8); Monocytes % (Auto) 3 % (0-12); Neutrophils # (Auto) 5.5 Thou/mm3 (1.8-7.7); Neutrophils % (Auto) 83 % (37-80); Nucleated Red Blood Cell # 0.05 Thou/mm3 (0.00-0.00); Nucleated Red Blood Cell % 1 /100 WBC (0); Platelet Count 256 Thou/mm3 (140-440); RDW Standard Deviation 64.2 fL (36.4-46.3); Red Blood Count 3.54 Miln/mm3 (4.00-5.20); White Blood Count 6.6 Thou/mm3 (3.6-11.0)
[2024-05-18 06:26] LABS: Hemoglobin 8.2 g/dL (12.0-16.0)
[2024-05-18 06:47] LABS: Alanine Aminotransferase < 7 U/L (10-49); Albumin/Globulin Ratio 1.2 (1.2-2.2); Alkaline Phosphatase 45 U/L (46-116); Anion Gap 7 (7-16); Aspartate Amino Transferase < 8 U/L (0-34); BUN/Creatinine Ratio 12 Ratio (12-20); Bilirubin,Total 0.4 mg/dL (0.3-1.2); Blood Urea Nitrogen 7 mg/dL (9-23); Calcium 8.5 mg/dL (8.3-10.6); Calcium (Corrected) 9.3 mg/dL (8.5-10.1); Carbon Dioxide 25.4 mMol/L (20.0-31.0); Chloride 109 mMol/L (98-107); Creatinine (Component) 0.6 mg/dL (0.6-1.3); Estimated Creatinine Clearance 94.2 mL/min (>60); Globulin 2.6 gm/dL (2.3-3.5); Glucose 122 mg/dL (74-106); Osmolality,Calculated 280 (275-295); Sodium 141 mMol/L (136-145); Total Protein 5.6 gm/dL (5.7-8.2); eGFR > 60 See Note
[2024-05-18 08:00] VITALS: BP 98/60; PULSE 58; RESP 16; TEMP 36.2; O2SAT 99
[2024-05-18] MEDS: FOLIC ACID 1 MG TABLET PO (08:45)
[2024-05-18] MEDS: VITAMIN B COMPLEX TABLET 1 TAB PO (08:45)
[2024-05-18] MEDS: sulfaSALAzine 500 MG TABLET PO (08:45)
[2024-05-18] MEDS: PANTOPRAZOLE INJ 40 MG VIAL IVP (08:45)
[2024-05-18] MEDS: ALBUMIN HUMAN 25% IVPB 25 GM/100 ML BTL IV (08:45)
[2024-05-18] MEDS: IRON SUCROSE CPLX INJ 20 MG/ML VIAL 5 ML 200 MG IVP (09:59)
[2024-05-18] MEDS: azaTHIOprine 50 MG TABLET PO (09:59)
--- NOTE | 2024-05-18 11:26 | PD.IMPROG ---
Documentation for date of: 05/18/24 Subjective Subjective Interval history: Case discussed with internal medicine team okay to discharge patient home discharge medicines outlined Exam Vital Signs Temp Pulse Resp BP Pulse Ox O2 Del Method O2 Flow Rate 97.1 F 58 L 16 98/60 99 Room Air 3 05/18/24 08:00 05/18/24 08:00 05/18/24 08:00 05/18/24 08:00 05/18/24 08:00 05/18/24 08:00 05/16/24 18:10 Objective Labs 05/18/24 04:16 05/18/24 04:16 Labs: Laboratory Results - last 24 hr 05/18/24 04:16 WBC 6.6 RBC 3.54 L Hgb 8.2 L Hct 27.5 L MCV 78 L MCH 23.2 L MCHC 29.8 L RDW Std Deviation 64.2 H Plt Count 256 D Neut % (Auto) 83 H Lymph % (Auto) 12 [place] % (Auto) 3 Eos % (Auto) 0 Baso % (Auto) 0 Neut # (Auto) 5.5 Lymph # (Auto) 0.8 L [place] # (Auto) 0.2 Eos # (Auto) 0.0 Baso # (Auto) 0.0 Immature Gran # (Auto) 0.10 H Absolute Nucleated RBC 0.05 H Immature Gran % 2 H Nucleated RBC % 1 H Sodium 141 Potassium 4.0 D Chloride 109 H Carbon Dioxide 25.4 Anion Gap 7 BUN 7 L Creatinine 0.6 Estim Creat Clear Calc 94.2 eGFR > 60 BUN/Creatinine Ratio 12 Glucose 122 H Calculated Osmolality 280 Calcium 8.5 Corrected Calcium 9.3 Total Bilirubin 0.4 AST < 8 ALT < 7 L Alkaline Phosphatase 45 L D Total Protein 5.6 L Albumin 3.0 L Globulin 2.6 Albumin/Globulin Ratio 1.2 Impressions Impression: Lopez ulcerative colitis plan sulfasalazine 1 g p.o. twice daily Folic acid 1 mg p.o. daily Azathioprine 50 mg p.o. daily Prednisone 5 mg tablet 3 tablets p.o. twice daily to be gradually tapered off over 6 weeks Patient be followed in the resident clinic internal medicine clinic Assessment & Plan A&P Narrative Anemia blood loss most likely menorrhagia by GI causes of blood loss needs to be ruled out Suggestions Initial test of choice is upper endoscopy with possible therapeutic intervention possible biopsies Consent obtained If EGD is negative we will consider doing a fiberoptic colonoscopy with possible therapeutic intervention prior to discharge Recommend AWARD MACHINE OPERATOR consultation I think her blood losses are because of the menorrhagia Thank you very much for the opportunity to participate in the care of this patient Time Spent With Patient Time: Total time spent is greater than 50% in coordination of care (as documented) at patient's floor/unit and/or counseling patient:
--- NOTE | 2024-05-18 11:29 | ESDS_ITS ---
Planned Discharge Date 05/18/24 DS: Providers Provider Date of admission: 05/14/24 17:46 Primary care physician: SAPNA Tate Admitting Provider: Mele Smith MD Attending Provider on Admission: Mele Smith MD Consults: 05/14/24 17:02 Consult to Gastroenterology Stat Comment: Upper GI bleed Consulting Provider: Rehan Fuentes Attending Provider on DC: Richard Blackmon MD Discharging Provider: Bryson Lynch MD DS: Diagnosis Discharge Diagnosis (1) Ulcerative colitis: Status: Acute Qualifiers: Digestive disease complication type: with rectal bleeding Ulcerative colitis location: ulcerative pancolitis Qualified Code(s): K51.011 - Ulcerative (chronic) pancolitis with rectal bleeding (2) Severe anemia: Status: Acute Problem List Completed Was Problem List Reviewed/Reconciled?: Yes Hospital Course Hospital Course Hospital course: Hospital Course: Patient is a 29-year-old female with past medical history of iron deficiency anemia presenting to the ED in 05/14/2024 from PCP with low hemoglobin. On admission patient was found to have a Hb of 2.9, Hct 11.6%. Fecal occult blood was posiitve in the ED, GI was consulted and patient was admitted for endoscopic work up. EGD was negative for any abnormal findings. On Colonoscopy, patient was found to have Ulcerative colitis with 30cm terminal ileum sparing. As per GI recommendations, patient is being started on treatment with Sulfasalazine, Azathioprine as well as a 6 week course of oral steroids for acute flare. She w as given 3 units PRBCs, followed by IV iron therapy during the hospitalization, Hb improved from 2.9 to 8.2 on discharge. Patient is being prescribed daily folic acid and oral iron to be taken every other day. She is advised to follow up with her PCP and get referrals for GI and gynecology for closer monitoring and management. Problems on this admission: - Severe Hematochezia , likely secondary to - Ulcerative colitis - Generalized weakness, due to - Acute blood loss anemia - History of iron deficiency anemia - Menorrhagia Procedures: Endoscopy + Colonoscopy Findings: Ulcerative colitis, sparing of terminal ileum Discharge instructions: - Follow up with PCP within 1 week. If you dont have primary doctor, please follow up with us at: [facility] [address] , [place] [address] For appointment, call: - You will need a referral to see Gastroenterology Dr Fuentes for regular monitoring of Ulcertaive Colitis Medicines: - Start Sulfasalazine 500mg x 2 tablets twice a day for treatment of Ulcertaive Colitis - Take Azathioprine 50mg daily until follow up with GI - Daily Folic acid supplement while you are on Azathioprine - Continue your Steroid taper as follows: 15mg twice a day for 7 days (week 1) 15mg in the morning + 10mg in the evening, for 7 days (week 2) 10mg twice a day for 7 days (week 3) 10mg in the morning + 5mg in the evening for 7 days (week 4) 5mg twice a day for 7 days (week 5) 5mg once a day for 7 days (week 6) - May take Famotidine 20mg up to twice a day while on steroids - Continue oral iron tablets, every other day for anemia - Return to ED if symptoms worsen We are grateful to be able to participate in Ms Rodriguez's care. We wish her the best. - Bryson Lynch MD Status at Discharge Cognitive/behavioral status at discharge: Stable and returned to baseline Time Spent with Patient Time attestation: Total time spent providing and/or coordinating discharge services: more than 50% Exam Vital Signs Temp Pulse Resp BP Pulse Ox O2 Del Method O2 Flow Rate 97.1 F 58 L 16 98/60 99 Room Air 3 05/18/24 08:00 05/18/24 08:00 05/18/24 08:00 05/18/24 08:00 05/18/24 08:00 05/18/24 08:00 05/16/24 18:10 Narrative Exam Constitutional Alert, oriented x4, small build, BMI 18 HEENT Vision grossly intact. Patent nares. Trachea midline. Respiratory Chest normal on inspection and clear to auscultation bilaterally. Cardiovascular S1 and S2 audible, RRR. No murmurs or carotid bruit. No gross JVD. Abdominal Soft and non tender to palpation in all quadrants. BS + Genitourinary No bladder tenderness, no flank pain. Normal to palpation. Musculoskeletal Extremities tone within normal limits. No LE edema. Neurological CN II - XII grossly intact. Extremity motor and sensation grossly intact. Skin Warm, dry and intact. No apparent lesions. Palor Psychiatric Patient has a good affect, is cooperative. Discharge Plan Plan Patient Disposition: HOME (Self Care) Disposition Comment: stable Patient condition on transfer: Stable Care Plan Goals: - Follow up with PCP within 1 week. If you dont have primary doctor, please follow up with us at: [facility] [address] , [place] [address] For appointment, call: - You will need a referral to see Gastroenterology Dr Fuentes for regular monitoring of Ulcertaive Colitis Medicines: - Start Sulfasalazine 500mg x 2 tablets twice a day for treatment of Ulcertaive Colitis - Take Azathioprine 50mg daily until follow up with GI - Daily Folic acid supplement while you are on Azathioprine - Continue your Steroid taper as follows: 15mg twice a day for 7 days (week 1) 15mg in the morning + 10mg in the evening, for 7 days (week 2) 10mg twice a day for 7 days (week 3) 10mg in the morning + 5mg in the evening for 7 days (week 4) 5mg twice a day for 7 days (week 5) 5mg once a day for 7 days (week 6) - May take Famotidine 20mg up to twice a day while on steroids - Continue oral iron tablets, every other day for anemia - Return to ED if symptoms worsen Prescriptions/Referrals Prescriptions/Med Rec: New sulfasalazine 500 mg tablet,delayed release (DR/EC) 1 g PO BID 30 Days Qty: 120 2RF azathioprine 50 mg tablet 50 mg PO QDAY 30 Days Qty: 30 2RF prednisone 5 mg tablet 5 mg PO QDAY Qty: 145 0RF Taper: Prednisone Taper 30 mg DAILY for 7 Days and 0 Hour 25 mg DAILY for 7 Days and 0 Hour 20 mg DAILY for 7 Days and 0 Hour 15 mg DAILY for 7 Days and 0 Hour 10 mg DAILY for 7 Days and 0 Hour 5 mg DAILY for 7 Days and 0 Hour Rx Instructions: 15mg twice a day for 7 days (week 1) 15mg in the morning + 10mg in the evening, for 7 days (week 2) 10mg twice a day for 7 days (week 3) 10mg in the morning + 5mg in the evening for 7 days (week 4) 5mg twice a day for 7 days (week 5) 5mg once a day for 7 days (week 6) Niva-Fol 2.5-25-2 mg tablet 1 tab PO QDAY 30 Days Qty: 30 3RF famotidine 20 mg tablet 20 mg PO BID 30 Days Qty: 60 1RF Continued ergocalciferol (vitamin D2) 1,250 mcg (50,000 unit) capsule 1,250 mcg PO QDAY Changed ferrous sulfate [iron] 325 mg (65 mg iron) Tablet 325 mg PO EVERYOTHERDAY Qty: 30 0RF No Action vitamin B complex Tablet 1 tab PO QDAY Referrals: Amy Chin FNP [Primary Care Provider] - Patient/Caregiver Discharge Instructions Discharge Activity: resume usual activities Education Materials: Anemia, Colitis Ulcerative Lifestyle, Colitis Ulcerative Meds, Understanding Colitis Print Language: Irish Stand Alone Forms: Dinora Award Info., Patient Portal Info Letter Discharge Order Discharge Orders: Discharge (Routine); Ordered 05/18/24 Ordered By: Bryson Lynch Quality Discharge Quality Measures VTE prophylaxis
--- NOTE | 2024-05-18 11:46 | PC.NURSE ---
Patient called to give new discharge instructions. Changes made to discharge packet after patient was discharges. Patient able to be given new instructions.
== END 2024-05-18 11:26 | disposition home or self-care (01) | DRG 245 ==
LOC: SERX 18:21 → SERHOLD 18:22 → S3SX 23:37
PROVIDERS: Nurse Practitioner Family; Specialist; Student in an Organized Health Care Education/Training Program; Admitting Provider Student in an Organized Health Care Education/Training Program; Emergency Provider Emergency Medicine; PCP Registered Nurse General Practice; Visit Provider Student in an Organized Health Care Education/Training Program
PROC: 0DB48ZX Excision of Esophagogastric Junction, Via Natural or Artificial Opening Endoscopic, Diagnostic (ICD-10-PCS; CPT 43239; principal; 2024-05-15 18:30)
PROC: 0DJD8ZZ Inspection of Lower Intestinal Tract, Via Natural or Artificial Opening Endoscopic (ICD-10-PCS; CPT 45378; principal; 2024-05-16 18:00)
DX: K51.011 Ulcerative (chronic) pancolitis with rectal bleeding (principal); K20.91 Esophagitis, unspecified with bleeding; K29.71 Gastritis, unspecified, with bleeding; D62 Acute posthemorrhagic anemia; N83.292 Other ovarian cyst, left side; K64.8 Other hemorrhoids; N92.0 Excessive and frequent menstruation with regular cycle; Z79.899 Other long term (current) drug therapy; Z79.624 Long term (current) use of inhibitors of nucleotide synthesis
CPT/HCPCS: 36415; 76856; 80053; 80074; 81025; 82270; 83540; 83550; 83615; 83735; 83993; 84100; 85014; 85018; 85025; 85046; 85610; 85652; 85730; 86021; 86036; 86140; 86703; 86850; 86900; 86901; 86921; 86922; J1200; J1756; J2250; J2470; J2919; J3010; J7042; J7120; J7500; P9016; P9047; A9270

== ENCOUNTER 2024-09-08 16:00 | Inpatient (IN) | payer MEDICAID, SELFPAY ==
[2024-09-08] VITALS (8 sets, daily range): BP systolic 100–118; BP diastolic 60–69; PULSE 76–109; RESP 13–21; TEMP 36.6–37; O2SAT 97–100
--- NOTE | 2024-09-08 16:56 | PD.EDRME ---
Rapid Medical Screening Exam RME Arrival date/time: 09/08/24 16:00 29-year-old female with no known medical history presents to the emergency room with sent by her primary care provider for low hemoglobin level. Patient states it was 2.8 I have greeted and performed a focused initial assessment of this patient. A comprehensive ED assessment and evaluation of the patient, analysis of all test results, and completion of the medical decision making process will be conducted by additional ED providers. Chief Complaint: General Adult/Misc Complain Time Seen by Provider: 09/08/24 16:50 Vital signs: Vital Signs Temperature 98.1 F 09/08/24 16:51 Pulse Rate 76 09/08/24 16:51 Respiratory Rate 16 09/08/24 16:51 Blood Pressure 103/67 09/08/24 16:51 Pulse Oximetry (%) 97 09/08/24 16:51 Oxygen Delivery Method Room Air 09/08/24 16:51 Vital signs reviewed by provider: Yes
[2024-09-08 17:53] LABS: Basophils % (Auto) 0 % (0-2.5); Eosinophils % (Auto) 1 % (0-10); Immature Granulocytes % (Auto) 1 % (0-0); Immature Granulocytes Auto 0.04 Thou/mm3 (0.00-0.00); Lymphocytes # (Auto) 1.3 Thou/mm3 (1.0-4.8); Lymphocytes % (Auto) 36 % (10-50); Mean Corpuscular HGB Conc 26.5 g/dl (31.0-37.0); Mean Corpuscular Hemoglobin 17.8 pg (25.0-35.0); Mean Corpuscular Volume 67 fL (80-100); Monocytes # (Auto) 0.3 Thou/mm3 (0.0-0.8); Monocytes % (Auto) 8 % (0-12); Neutrophils # (Auto) 1.9 Thou/mm3 (1.8-7.7); Neutrophils % (Auto) 54 % (37-80); Nucleated Red Blood Cell # 0.04 Thou/mm3 (0.00-0.00); Nucleated Red Blood Cell % 1 /100 WBC (0); Platelet Count 350 Thou/mm3 (140-440); RDW Standard Deviation 46.5 fL (36.4-46.3); Red Blood Count 1.52 Miln/mm3 (4.00-5.20); White Blood Count 3.5 Thou/mm3 (3.6-11.0)
[2024-09-08 18:02] LABS: Hematocrit 10.2 % (36.0-46.0)
[2024-09-08 18:07] LABS: Alanine Aminotransferase < 7 U/L (10-49); Albumin, Serum 2.5 gm/dL (3.5-5.0); Albumin/Globulin Ratio 0.9 (1.2-2.2); Alkaline Phosphatase 74 U/L (46-116); Anion Gap 10 (7-16); BUN/Creatinine Ratio 8 Ratio (12-20); Bilirubin,Total 0.2 mg/dL (0.3-1.2); Blood Urea Nitrogen 7 mg/dL (9-23); Calcium 7.7 mg/dL (8.3-10.6); Calcium (Corrected) 8.9 mg/dL (8.5-10.1); Chloride 107 mMol/L (98-107); Creatinine (Component) 0.9 mg/dL (0.6-1.3); Globulin 2.9 gm/dL (2.3-3.5); Glucose 107 mg/dL (74-106); Osmolality,Calculated 273 (275-295); Sodium 138 mMol/L (136-145); Total Protein 5.4 gm/dL (5.7-8.2); eGFR > 60 See Note
[2024-09-08 18:14] LABS: Partial Thromboplastin Time 23.2 Seconds (22.0-36.0); Prothrombin Time 11.4 Seconds (9.0-12.2)
--- NOTE | 2024-09-08 19:04 | EKG_ITS ---
[facility] Test Date: 2024-09-08 Pat Name: TYLOR GALE Department: Room: - Gender: Female Rn Procedures: : 1995 Requested By: Violet Shirley Order Number: [id number] Reading MD: Violet Shirley Measurements Intervals Lerona Rate: 99 P: 37 NJ: 125 QRS: 42 QRSD: 80 T: 42 QT: 338 QTc: 434 Interpretive Statements SINUS RHYTHM No previous ECG available for comparison /store/S0/[id number]/[id number].pdf
--- NOTE | 2024-09-08 19:17 | PD.EDRECHK ---
ED Recheck Abnl Lab Rx-RME/HPI General Chief Complaint: General Adult/Misc Complain Stated Complaint: LOW HGB 2.8 Time Seen by Provider: 09/08/24 16:50 Arrival date/time: 09/08/24 16:00 RME / HPI RME / HPI narrative: 09/08/24 16:00 29-year-old female with no known medical history presents to the emergency room with sent by her primary care provider for low hemoglobin level. Patient states it was 2.8 I have greeted and performed a focused initial assessment of this patient. A comprehensive ED assessment and evaluation of the patient, analysis of all test results, and completion of the medical decision making process will be conducted by additional ED providers. --------- Dr. Almeida?s Main ED Evaluation: 29yo female with a history of ulcerative colitis presents to the ED for a chief complaint of low hemoglobin. Patient states she had outpatient labs done and was sent over for a blood transfusion when her PCP informed her the hemoglobin was 2.8. Patient states her menses usually involve 2-3 days of heavy bleeding, along with having spots of blood in her stools. Patient reports feeling dizzy when she stands up. Patient denies any black stools, shortness of breath, hematemesis, general malaise or any other associated symptoms. She is on iron pills. She states she does not follow-up with Dr. Fuentes anymore due to not having insurance. NKA. Related Data Home Medications ?Medication ?Instructions ?Recorded ?Confirmed ergocalciferol (vitamin D2) 1,250 1,250 mcg PO QDAY 05/15/24 05/15/24 mcg (50,000 unit) capsule vitamin B complex 1 tab PO QDAY 05/15/24 05/15/24 Previous Rx's ?Medication ?Instructions ?Recorded azathioprine 50 mg tablet 50 mg PO QDAY 1 month #30 tabs 05/18/24 famotidine 20 mg tablet 20 mg PO BID 1 month #60 tabs 05/18/24 ferrous sulfate 325 mg (65 mg 325 mg PO EVERYOTHERDAY #30 tabs 05/18/24 iron) tablet (iron) folic acid-vit B6-vit B12 2.5 1 tab PO QDAY 1 month #30 tabs 05/18/24 mg-25 mg-2 mg tablet (Niva-Fol) prednisone 5 mg tablet 5 mg PO QDAY #145 tabs 05/18/24 sulfasalazine 500 mg 1 g (2 x 500 mg) PO BID Ulcerative 05/18/24 tablet,delayed release Colitis 1 month #120 tabs Allergies Allergy/AdvReac Type Severity Reaction Status Date / Time No Known Allergies Allergy Verified 05/15/24 18:36 Review of Systems Review of Systems Systems Reviewed: All systems reviewed, normal except as documented Past Medical History Past Medical History NEUROLOGIC: Negative Neurological Disorders or Seizures CARDIAC: Negative Cardiac Disorders or Congestive Heart Failure RESPIRATORY: Negative Chronic Obstructive Pulmonary Disease (COPD) GASTROINTESTINAL: Negative Gastrointestinal Disorders or Hepatitis GENITOURINARY: Negative Genitourinary Disorders or Renal Disease REPRODUCTIVE: Positive Previous Pregnancies (X2); Negative Endometriosis, Pelvic Inflammatory Disease or Uterine Prolapse MUSCULOSKELETAL: Negative Musculoskeletal Disorders ENDOCRINE: Negative Endocrine Disorders, Diabetes Mellitus Type 1 or Diabetes Mellitus Type 2 HEMATOLOGIC: Positive Blood Disorders and Anemia (TAKING IRON. ANEMIA ONLY DURING .) OTHER HISTORY: Positive Hospitalization and Blood Transfusions; Negative Autoimmune Disease, Down Syndrome, Developmental Delay, Shingles, Falls, Blood Transfusion Reaction, MRSA, VRSA, Vancomycin-Resistant Enterococci, Human Immunodeficiency Virus (HIV), Chicken Pox, Measles, Mumps, Rubella (Malagasy Measles), Pertussis, Clostridium Difficile or Cancer Family History FAMILY HISTORY: Positive Family Surgery (MOTHER- X 2); Negative Family Psychiatric Problems, Family Respiratory Disorders, Family Cardiac Disorders, Family Gastrointestinal Problems, Family Cancer or Family Anesthesia Reaction Surgical History SURGICAL: Negative Section Social History SMOKING STATUS: Current every day smoker SECOND HAND EXPOSURE: No ED Exam Narrative Physical exam: GENERAL APPEARANCE: alert and oriented x 4, well-developed, well-nourished, no acute distress VITALS: All vitals were reviewed and the pulse ox is 97% on room air, which is normal according to my interpretation. HEENT: Normocephalic, atraumatic; pupils equal, round, reactive to light; EOMI; mucous membranes pink, moist; oropharynx clear NECK: Supple LUNGS: CTABL; no wheezes, no rales, no rhonchi HEART: Regular rate, regular rhythm; normal S1, S2; no murmurs ABDOMEN: non distended; normal BS; soft, no tenderness, no guarding, no rebound; no masses, no organomegaly, no hernia BACK: no CVA tenderness EXTREMITIES: atraumatic; no edema NEUROLOGIC: awake; alert and oriented x4; cranial nerves II-XII grossly intact; no focal sensory or motor deficits PSYCHIATRIC: appropriate mood and affect SKIN: warm, dry, pallor; no rashes Course Quality Measures none Orders Category Date Time Status Tax Accountant STAT Care 09/08/24 19:04 Active EKG (ED ONLY) *Do not use* NOW Care 09/08/24 19:04 Completed Insert IV STAT Care 09/08/24 19:04 Active NPO NOW Care 09/08/24 19:04 Active Transfuse,blood/blood products ONCE Care 09/08/24 19:04 Active EKG (ED Only) Stat Exams 09/08/24 19:04 Draft Antibody Identification Stat Lab 09/08/24 17:20 Results CBC Auto Diff Post-Transfusion Routine Lab 09/08/24 22:00 Ordered CBC Stat Lab 09/08/24 17:20 Completed CMP [Comprehensive Metabolic Panel] Stat Lab 09/08/24 17:20 Completed PT [Prothrombin Time with INR] Stat Lab 09/08/24 17:20 Completed PTT [Partial Thromboplastin Time] Stat Lab 09/08/24 17:20 Completed Type and Screen Stat Lab 09/08/24 17:20 Results prbc [Red Blood Cells] Stat Lab 09/08/24 17:20 Results Acetaminophen Tab [Tylenol Tab] Med 09/08/24 19:04 Discontinued 650 mg PO X1 ONE DiphenhydrAMINE [Benadryl] Med 09/08/24 19:04 Discontinued 25 mg PO X1 ONE Vital Signs Vital signs: Vital Signs Temperature 98.1 F 09/08/24 16:51 Pulse Rate 76 09/08/24 16:51 Respiratory Rate 16 09/08/24 16:51 Blood Pressure 103/67 09/08/24 16:51 Pulse Oximetry (%) 97 09/08/24 16:51 Oxygen Delivery Method Room Air 09/08/24 16:51 Recheck / Abnormal Lab / Rx MDM Narrative MDM Narrative:: Scribe Attestation: 09/08/24 Whitney Batxer am scribing for and in the presence of Dr. Almeida. HnH is low at 2.7/10.2. 3 units pRBCs ordered. 2015: Attempted to call Dr. Fuentes without success. I left a message for him to call me back. 2200: Discussed case with Dr. Fuentes from GI regarding consultation. Discussed patients ED course, exam findings, labs, and radiology results. States to admit the patient and he will consult. 2203: Discussed case with the resident physician, attending Dr. Blackmon from Hospitalist service regarding admission. Discussed patients ED course, exam findings, labs, and radiology results. The Hospitalist agrees to accept the patient for admission. Patient data External records reviewed:: [facility] previous records (Per chart review, patient was admitted here on 05/14/24 for severe anemia.) Clinical information provided by:: patient Social determinants that could affect healthcare access:: none Patient has the following chronic illnesses:: ulcerative colitis, anemia How is presenting disease/condition affected by chronic disease/condition?: caused by Evaluation data The following diagnostics were reviewed and interpreted by me:: lab results and EKG tracing(s) Lab and/or radiology exams considered but not ordered:: none Interpretation Summary: RBCs low at 1.52, HnH is low at 2.7/10.2, Platelets are normal, PT/INR/PTT normal. EKG done at 1922, NSR, rate of 99, normal axis, normal intervals, no acute ST-T changes, according to my interpretation. Medications / Prescriptions Medications or Prescriptions considered but not ordered:: none Medication administrations:: Medication Administration History Discontinued Medications Acetaminophen (Acetaminophen 325 Mg Tablet) 650 mg PO X1 ONE Stop: 09/08/24 19:05 Last Admin: 09/08/24 20:24 Dose: 650 mg Documented By: ZO Diphenhydramine HCl (Diphenhydramine 25 Mg Capsule) 25 mg PO X1 ONE Stop: 09/08/24 19:05 Last Admin: 09/08/24 20:24 Dose: 25 mg Documented By: CG see above Consultations Consultation(s) initiated? (list below): Yes Diagnosis Recheck Differential Diagnosis: other (upper GI bleed, lower GI bleed, menorrhagia) Most likely diagnosis given after review of the tests above:: lower GI bleed, ulcerative colitis, severe anemia, blood transfusion Admission Indicated Admission indicated?: indicated Admission Request Was there a request for admission?: Yes Admission Attestation Admission request attestation: Discussed case with [] from Hospitalist service regarding admission. Discussed patients ED course, exam findings, labs, and radiology results. The Hospitalist [agrees,declines] to accept the patient for admission. Disposition Plan Disposition Plan: Admit Critical Care Time Critical Care Time Critical Care Time: Yes Total Critical Care Time (min.): 35 Attestation: The high probability of sudden, clinically significant deterioration in the patient?s condition required the highest level of my preparedness to intervene urgently. The services I provided to this patient were to treat and/or prevent clinically significant deterioration. Services included the following: chart data review, reviewing nursing notes and/or old charts, documentation time, licensed tax consultant collaboration regarding findings and treatment options, medication orders and management, direct patient care, vital sign assessments and ordering, interpreting and reviewing diagnostic studies and lab tests. Aggregate critical care time includes only time during which I was engaged in work directly related to the patient?s care, as described above, whether at bedside or elsewhere in the Emergency Department. It did not include time spent performing other reported procedures or the services of residents, students, nurses or physician assistants. Discharge Plan Plan Patient Disposition: Admit Acute Care w/in Hospital Prescriptions/Referrals Prescriptions/Med Rec: No Action ergocalciferol (vitamin D2) 1,250 mcg (50,000 unit) capsule 1,250 mcg PO QDAY vitamin B complex Tablet 1 tab PO QDAY sulfasalazine 500 mg tablet,delayed release (DR/EC) 1 g PO BID 30 Days Qty: 120 2RF azathioprine 50 mg tablet 50 mg PO QDAY 30 Days Qty: 30 2RF prednisone 5 mg tablet 5 mg PO QDAY Qty: 145 0RF Taper: Prednisone Taper 30 mg DAILY for 7 Days and 0 Hour 25 mg DAILY for 7 Days and 0 Hour 20 mg DAILY for 7 Days and 0 Hour 15 mg DAILY for 7 Days and 0 Hour 10 mg DAILY for 7 Days and 0 Hour 5 mg DAILY for 7 Days and 0 Hour Rx Instructions: 15mg twice a day for 7 days (week 1) 15mg in the morning + 10mg in the evening, for 7 days (week 2) 10mg twice a day for 7 days (week 3) 10mg in the morning + 5mg in the evening for 7 days (week 4) 5mg twice a day for 7 days (week 5) 5mg once a day for 7 days (week 6) ferrous sulfate [iron] 325 mg (65 mg iron) Tablet 325 mg PO EVERYOTHERDAY Qty: 30 0RF Niva-Fol 2.5-25-2 mg tablet 1 tab PO QDAY 30 Days Qty: 30 3RF famotidine 20 mg tablet 20 mg PO BID 30 Days Qty: 60 1RF Referrals: Dora Dawson PA-C [Primary Care Provider] - In 1 week Problem List Clinical Impression: Severe anemia, Ulcerative colitis, Lower GI bleed, Blood transfusion during current hospitalisation Patient/Caregiver Discharge Instructions Print Language: Greenlandic Stand Alone Forms: Dinora Award Info., Patient Portal Info Letter
[2024-09-08 19:25] LABS: Hemoglobin 2.7 g/dL (12.0-16.0)
--- NOTE | 2024-09-08 20:15 | PC.NURSE ---
Gastroenterology Technician assumes care of patient at this time, pt noted to be A/O x 3 with no c/o pain, S.O.B, dizziness. Pt states she was instructed to report to ER due to low H/H
[2024-09-08] MEDS: ACETAMINOPHEN 325 MG TABLET 650 MG PO (20:24)
[2024-09-08] MEDS: DiphenhydrAMINE 25 MG CAPSULE PO (20:24)
--- NOTE | 2024-09-08 22:34 | ESHP_ITS ---
<Statement entered by Richard Blackmon MD - 09/19/24 14:56> I reviewed above note and agree with findings and plans. I have also personally examined the patient with medicine team and went over assessment and plan with medical team including fashion styling intern and resident physician. Documentation for date of: 09/08/24 HPI History of Present Illness Chief complaint: dizziness, low hemoglobin History of present illness: 29-year-old female with past medical history of ulcerative colitis and iron deficiency anemia was admitted to the hospital on 09/08/2024 after routine labs showed that she had low hemoglobin. Patient stated that she has been feeling dizzy, palpitations, and weaker. She denied having any increased bloody bowel movements, vomiting blood, or blood in the urine. Patient did mention that she just finished her menstruation last week and the first 2 days were heavy bleeding and afterwards they were significantly less. Patient stated that she has not passed out. She stated that she has had around 6 bowel movements per day and around 3 per night. She mentioned that these were mostly nonbloody and that they were little bit more formed than when she initially came in on May of the same year. Patient stated that she has not been able to follow- up with GI specialist due to insurance issues at this time as she currently does not have any primary care physician. Otherwise patient states that she has not had any abdominal pain or cramping and that she is currently only on 1 medication, yet she does not remember which 1. She has no other complaints at this time. ED course: Initially came in normotensive and afebrile. Initial labs were relevant for acute anemia and hypoalbuminemia. Initial imaging included EKG which showed sinus rhythm. ED ordered 3 PRBCs to be transfused. PMH: As above Surgical Hx: None: Social Hx: Denies any smoking, alcohol, or drugs. Admits vaping. Review of Systems Review of Systems Narrative Review of Systems: Constitutional: Denies sweats, Denies weight loss/gain, Denies fever, Denies chills. HEENT: Denies hearing loss, Denies ear pain, Denies postnasal drip, Denies double vision, Denies blurry vision. Respiratory: Denies shortness of breath, Denies cough, Denies wheezing. Cardiovascular: Denies chest pain, Denies palpitations, Denies sudden loss of consciousness. GI: Admits blood in stool, Denies constipation, Denies abdominal pain, Denies difficulty swallowing, Denies nausea or vomit. : Denies urinary incontinence, Denies pain while urinating, Denies increased urinary frequency. MSK: Denies joint pain, Denies joint swelling, Denies numbness. Skin: Denies rash, Denies itching, Denies easy bruising. Neuro: Denies headaches, Admits dizziness, Denies seizures. Past Medical History Past Medical History NEUROLOGIC: Negative Neurological Disorders or Seizures CARDIAC: Negative Cardiac Disorders or Congestive Heart Failure RESPIRATORY: Negative Chronic Obstructive Pulmonary Disease (COPD) GASTROINTESTINAL: Negative Gastrointestinal Disorders or Hepatitis GENITOURINARY: Negative Genitourinary Disorders or Renal Disease REPRODUCTIVE: Positive Previous Pregnancies (X2); Negative Endometriosis, Pelvic Inflammatory Disease or Uterine Prolapse MUSCULOSKELETAL: Negative Musculoskeletal Disorders ENDOCRINE: Negative Endocrine Disorders, Diabetes Mellitus Type 1 or Diabetes Mellitus Type 2 HEMATOLOGIC: Positive Blood Disorders and Anemia (TAKING IRON. ANEMIA ONLY DURING .) OTHER HISTORY: Positive Hospitalization and Blood Transfusions; Negative Autoimmune Disease, Down Syndrome, Developmental Delay, Shingles, Falls, Blood Transfusion Reaction, MRSA, VRSA, Vancomycin-Resistant Enterococci, Human Immunodeficiency Virus (HIV), Chicken Pox, Measles, Mumps, Rubella (Portuguese Measles), Pertussis, Clostridium Difficile or Cancer Family History FAMILY HISTORY: Positive Family Surgery (MOTHER- X 2); Negative Family Psychiatric Problems, Family Respiratory Disorders, Family Cardiac Disorders, Family Gastrointestinal Problems, Family Cancer or Family Anesthesia Reaction Surgical History SURGICAL: Negative Section Social History SMOKING STATUS: Current every day smoker SECOND HAND EXPOSURE: No Exam Vital Signs Temp Pulse Resp BP Pulse Ox O2 Del Method 98.6 F 88 13 104/65 100 Room Air 09/08/24 22:24 09/08/24 22:24 09/08/24 22:24 09/08/24 22:24 09/08/24 22:24 09/08/24 21:00 Narrative Exam General: A/O x3, no acute distress, Pale appearing Eyes: PERRL, EOMI. Anicteric, vision grossly intact. Ears: No ear pain, no ear discharge, Hearing grossly intact. Nose: No nasal discharge. Mouth/Throat: Pale lips, Dry mucous membranes, no redness, no lesions. Neck: Neck supple, non-tender, no cervical lymphadenopathy. Lungs: Clear [place] to auscultation and percussion, No accessory muscle use. Cardio: Normal S1/S2, regular rhythm, no murmurs, no JVD or carotid bruits. Abdomen: Soft, non-tender, no palpable masses, peristalsis present, no guarding or rebound. Extremities: Symmetrical, no significant deformities, trace peripheral edema , non-tender, peripheral pulses presents. Skin: No rashes, no lesions, warm to touch. UE digits pale with decreased capillary refill. Neuro: No focal neurological deficits. motor and sensory intact Psych: Cooperative, appropriate mood and effect. Results: Labs 09/08/24 17:20 09/08/24 17:20 Labs: Short CBC 09/08/24 Range/Units 17:20 WBC 3.5 L (3.6-11.0) Thou/mm3 Hgb 2.7 L* (12.0-16.0) g/dL Hct 10.2 L* (36.0-46.0) % Plt Count 350 (140-440) Thou/mm3 BMP 09/08/24 17:20 Sodium 138 Potassium 4.0 Chloride 107 Carbon Dioxide 21.0 BUN 7 L Creatinine 0.9 Glucose 107 H Calcium 7.7 L Liver Function 09/08/24 Range/Units 17:20 Total Bilirubin 0.2 L (0.3-1.2) mg/dL ALT < 7 L (10-49) U/L Alkaline Phosphatase 74 (46-116) U/L Albumin 2.5 L (3.5-5.0) gm/dL Quality Measures Quality Measures none Medications Home Medications and Allergies Home Medications ?Medication ?Instructions ?Recorded ?Confirmed ?Type ergocalciferol (vitamin D2) 1,250 1,250 mcg PO QDAY 05/15/24 History mcg (50,000 unit) capsule vitamin B complex 1 tab PO QDAY 05/15/2405/15 History Allergies Allergy/AdvReac Type Severity Reaction Status Date / Time No Known Allergies Allergy Verified 05/15/24 18:36 Visit Medications Acetaminophen (Acetaminophen 325 Mg Tablet) 650 mg PO Q6H PRN PRN Reason: pain and Fever >100.4 Stop: 10/08/24 22:27 Hydrocodone Bitart/Acetaminophen (Hydrocodone/Apap 5/325 Tablet) 1 tab PO Q4HR PRN PRN Reason: PAIN SCALE 4-10(Mod-Sev Stop: 09/13/24 22:27 Diphenhydramine HCl (Diphenhydramine 25 Mg Capsule) 25 mg PO Q6HR PRN PRN Reason: ITCHING Stop: 10/08/24 22:33 Ondansetron HCl (Ondansetron Inj 2 Mg/Ml Inj 2 Ml) 4 mg IVP Q6H PRN; Protocol PRN Reason: NAUSEA OR VOMITING Stop: 10/08/24 22:27 Pantoprazole Sodium (Pantoprazole 40 Mg Tablet) 40 mg PO QDAY DAKSHA Stop: 10/09/24 08:59 Discontinued Medications Acetaminophen (Acetaminophen 325 Mg Tablet) 650 mg PO X1 ONE Stop: 09/08/24 19:05 Last Admin: 09/08/24 20:24 Dose: 650 mg Diphenhydramine HCl (Diphenhydramine 25 Mg Capsule) 25 mg PO X1 ONE Stop: 09/08/24 19:05 Last Admin: 09/08/24 20:24 Dose: 25 mg Assessment & Plan Plan 29-year-old female with past medical history of ulcerative colitis, gastritis, and iron deficiency anemia was admitted to the hospital on 09/08/2024 for acute blood loss anemia. #Acute blood loss anemia #Hx of ulcerative colitis #Hx of iron deficiency anemia #Hx of gastritis Patient states that she recently finished her menstrual cycle and that she had 2 days of heavy bleeding and afterwards less bleeding. Patient states that she has not been having many bloody bowel movements. She denies having any bloody emesis or blood in the urine. Patient does look pale. Hemoglobin initially was 2.7 Patient's hemoglobin ranges around 8-9. Last colonoscopy was on 05/16/2024 which showed friable tissue in the rectum, ascending colon, ascending colon, and sigmoid colon. Plan: Will transfuse a total of 4 units of PRBCs, 1 FFP, 1 platelets. Will keep 1 PRBC ready Will repeat hemoglobin at 3 AM. Protonix Benadryl 25 mg p.o. every 6 as needed for any allergic reactions PTT and PT for morning labs PUD diet Consulted GI specialist, appreciate commendations Disposition: Patient admitted to telemetry. Diet: PUD GI prophylaxis: protonix DVT prophylaxis: SCDs Code: Full Case disclosed with Attending Dr. Lorri Sharp PGY1 Disclaimer: Even though this this note was dictated by speech recognition and even though it was carefully revised there may still be minor errors in carpenter's helper due to voice recognition software.
--- NOTE | 2024-09-08 22:51 | PD.IMCONS ---
HPI Data of Consult Primary Care Provider: Dora Dawson PA-C Consult Narrative Reason for consult: hemoglobin 2.8 g History of present illness: 29 years of female came to the hospital emergency room sent by the primary care physician for low hemoglobin hematocrit She felt weak and dizzy but did not pass out Hemoglobin was 2.8 g Abdominal ultrasound done on 09/04/2024 showed it to be normal normal gallbladder normal liver Pelvic ultrasound showed 2.5 x 2.5 x 3.5 cm left ovarian cyst On 05/15/2024 she underwent upper endoscopy showed gastritis and esophagitis On 05/16/2024 colonoscopy showed inflammation in the ascending colon transverse colon descending and sigmoid colon along with rectum and biopsies are consistent with crypt abscesses consistent with inflammatory bowel disease Patient did not follow-up with me She is not having diarrhea but does have blood in the stool She does about 2 to 3 days of heavy menstruation cc:: cc: Review of Systems Review of Systems Systems Reviewed: All systems reviewed, normal except as documented Past Medical History Surgical History OTHER SURGICAL HX: As in the history of present illness Meds Home Medications and Allergies Allergies Allergy/AdvReac Type Severity Reaction Status Date / Time No Known Allergies Allergy Verified 05/15/24 18:36 Exam Vital Signs Temp Pulse Resp BP Pulse Ox O2 Del Method 98.4 F 97 17 107/66 100 Room Air 09/08/24 22:39 09/08/24 22:39 09/08/24 22:39 09/08/24 22:39 09/08/24 22:24 09/08/24 21:00 Constitutional Comments: Chronically ill-appearing Routine Respiratory Exam Comments: Normal to auscultation Routine Abdominal Exam Comments: Soft nontender positive bowel sounds Results Labs 09/09/24 15:33 09/09/24 03:07 Labs: Short CBC 09/08/24 Range/Units 17:20 WBC 3.5 L (3.6-11.0) Thou/mm3 Hgb 2.7 L* (12.0-16.0) g/dL Hct 10.2 L* (36.0-46.0) % Plt Count 350 (140-440) Thou/mm3 BMP 09/08/24 17:20 Sodium 138 Potassium 4.0 Chloride 107 Carbon Dioxide 21.0 BUN 7 L Creatinine 0.9 Glucose 107 H Calcium 7.7 L Liver Function 06/09/25 Range/Units 17:20 Total Bilirubin 0.2 L (0.3-1.2) mg/dL ALT < 7 L (10-49) U/L Alkaline Phosphatase 74 (46-116) U/L Albumin 2.5 L (3.5-5.0) gm/dL Assessment and Plan Additional Assessment & Plan Additional Plan: # Acute posthemorrhagic anemia most likely I believe due to menorrhagia and not due to the GI bleeding from the underlying inflammatory bowel disease which is not being treated Although there may be some contribution from the GI bleed as well Suggestions No need for any invasive GI workup such as EGD or colonoscopy Start sulfasalazine 500 mg 2 tablets twice daily Folic acid 1 mg p.o. daily Azathioprine 50 mg once a day Will follow the patient CRP Thank you very much for the opportunity to participate in care of this patient
--- NOTE | 2024-09-08 23:31 | PC.NURSE ---
Report called to floor nurse KIMMIE Chamberlain at this time
[2024-09-09] VITALS (26 sets, daily range): BP systolic 91–116; BP diastolic 55–83; PULSE 62–98; RESP 16–20; TEMP 36.1–37.1; O2SAT 84–100; BMI 19.7; BMI 19.6
[2024-09-09 03:55] LABS: Basophils % (Auto) 1 % (0-2.5); Eosinophils # (Auto) 0.1 Thou/mm3 (0.0-0.5); Eosinophils % (Auto) 3 % (0-10); Immature Granulocytes % (Auto) 1 % (0-0); Immature Granulocytes Auto 0.04 Thou/mm3 (0.00-0.00); Lymphocytes # (Auto) 1.1 Thou/mm3 (1.0-4.8); Lymphocytes % (Auto) 29 % (10-50); Mean Corpuscular HGB Conc 31.1 g/dl (31.0-37.0); Mean Corpuscular Hemoglobin 22.9 pg (25.0-35.0); Mean Corpuscular Volume 74 fL (80-100); Monocytes # (Auto) 0.4 Thou/mm3 (0.0-0.8); Monocytes % (Auto) 11 % (0-12); Neutrophils # (Auto) 2.1 Thou/mm3 (1.8-7.7); Neutrophils % (Auto) 55 % (37-80); Nucleated Red Blood Cell # 0.07 Thou/mm3 (0.00-0.00); Nucleated Red Blood Cell % 2 /100 WBC (0); Platelet Count 325 Thou/mm3 (140-440); RDW Standard Deviation 50.2 fL (36.4-46.3); Red Blood Count 2.62 Miln/mm3 (4.00-5.20); White Blood Count 3.8 Thou/mm3 (3.6-11.0)
[2024-09-09 04:01] LABS: INR 1.1 (0.9-1.3); Partial Thromboplastin Time 23.9 Seconds (22.0-36.0); Prothrombin Time 11.5 Seconds (9.0-12.2)
[2024-09-09 04:04] LABS: Hematocrit 19.3 % (36.0-46.0)
[2024-09-09 04:17] LABS: Alanine Aminotransferase < 7 U/L (10-49); Albumin, Serum 2.1 gm/dL (3.5-5.0); Albumin/Globulin Ratio 0.8 (1.2-2.2); Alkaline Phosphatase 65 U/L (46-116); Anion Gap 9 (7-16); BUN/Creatinine Ratio 12 Ratio (12-20); Bilirubin,Total 0.5 mg/dL (0.3-1.2); Blood Urea Nitrogen 7 mg/dL (9-23); Calcium 7.2 mg/dL (8.3-10.6); Calcium (Corrected) 8.7 mg/dL (8.5-10.1); Carbon Dioxide 22.4 mMol/L (20.0-31.0); Chloride 111 mMol/L (98-107); Creatinine (Component) 0.6 mg/dL (0.6-1.3); Estimated Creatinine Clearance 96.1 mL/min (>60); Globulin 2.8 gm/dL (2.3-3.5); Glucose 120 mg/dL (74-106); Magnesium 1.8 mg/dL (1.6-2.6); Osmolality,Calculated 282 (275-295); Potassium 4.1 mMol/L (3.4-5.1); Sodium 142 mMol/L (136-145); Total Protein 4.9 gm/dL (5.7-8.2); eGFR > 60 See Note
[2024-09-09] MEDS: PANTOPRAZOLE 40 MG TABLET PO (08:31)
--- NOTE | 2024-09-09 10:38 | ESPR_ITS ---
<Statement entered by Opal Solomon MD - 09/09/24 12:58> Patient is a 29-year-old female with past medical history of ulcerative colitis was admitted for severe blood loss anemia requiring blood transfusion. 09/09/2024. Patient was seen and examined at bedside. No acute overnight event, Patient still endorses more than 4 bowel movements per day, still bloody, Patient reports heavy manses Severe blood loss anemia can be multifactorial related to IBS flare along with a heavy menstrual cycle Patient received 2PRBC blood transfusions, plan is to transfuse another 1, Will continue close monitor vitals, currently patient is hemodynamically stable Will follow-up with GI recommendations about current management of acute ulcerative colitis flare I personally saw and examined the patient and discussed the assessment and plan with the entire medicine team, including my attending , Opal Solomon M.D. PGY-2 Disclaimer: Despite multiple revisions, due to the dictation software being used, the document bellow may not be free of grammatical errors including phonetic/typographic errors. However, this does not deter from our commitment to providing health care in the patient's best interest in mind. Documentation for date of: 09/09/24 Subjective Subjective Interval history: Overnight admission. Seen and examined at bedside and patient states that she has at most four bowel movements per day and not all of them are bloody. She does state that she has heavy menses and is likely etiology of patient's anemia. Upon evaluation, currently receiving third unit of PRBCs and will plan to give forth along with FFP and platelets per massive transfusion protocol. Otherwise, will follow-up with GI recommendations for UC medications. Exam Vital Signs Temp Pulse Resp BP Pulse Ox O2 Del Method 98.1 F 82 18 103/67 99 Room Air 09/09/24 07:30 09/09/24 07:30 09/09/24 07:30 09/09/24 07:30 09/09/24 07:30 09/09/24 07:30 Narrative Exam General: AOx3, no acute distress, able to speak full sentences HEENT: NC/AT, mucous membranes moist, bilateral sclera anicteric Cardiovascular: regular rate and rhythm, S1/S2 present, no murmurs appreciated Pulmonary: clear to auscultation bilaterally, no rales/rhonchi/wheezes Abdominal: soft, non-tender, non-distended, no rebound/guarding, normal bowel sounds present Musculoskeletal: normal ROM, no peripheral edema Skin: warm and dry, intact, no rashes Neuro: CN II-XII intact, no focal deficits Objective Labs 09/10/24 05:29 09/10/24 05:29 Labs: Laboratory Results - last 24 hr 09/08/24 09/09/24 17:20 03:07 WBC 3.5 L 3.8 RBC 1.52 L* 2.62 L Hgb 2.7 L* 6.0 L* D Hct 10.2 L* 19.3 L* MCV 67 L 74 L MCH 17.8 L 22.9 L MCHC 26.5 L 31.1 RDW Std Deviation 46.5 H 50.2 H Plt Count 350 325 Neut % (Auto) 54 55 Lymph % (Auto) 36 29 [place] % (Auto) 8 11 Eos % (Auto) 1 3 Baso % (Auto) 0 1 Neut # (Auto) 1.9 2.1 Lymph # (Auto) 1.3 1.1 [place] # (Auto) 0.3 0.4 Eos # (Auto) 0.0 0.1 Baso # (Auto) 0.0 0.0 Immature Gran # (Auto) 0.04 H 0.04 H Absolute Nucleated RBC 0.04 H 0.07 H Immature Gran % 1 H 1 H Nucleated RBC % 1 H 2 H PT 11.4 11.5 INR 1.0 1.1 APTT 23.2 23.9 Sodium 138 142 Potassium 4.0 4.1 Chloride 107 111 H Carbon Dioxide 21.0 22.4 Anion Gap 10 9 BUN 7 L 7 L Creatinine 0.9 0.6 Estim Creat Clear Calc 64.0 96.1 eGFR > 60 > 60 BUN/Creatinine Ratio 8 L 12 Glucose 107 H 120 H Calculated Osmolality 273 L 282 Calcium 7.7 L 7.2 L Corrected Calcium 8.9 8.7 Magnesium 1.8 Total Bilirubin 0.2 L 0.5 ALT < 7 L < 7 L Alkaline Phosphatase 74 65 Total Protein 5.4 L 4.9 L Albumin 2.5 L 2.1 L Globulin 2.9 2.8 Albumin/Globulin Ratio 0.9 L 0.8 L Blood Type A Negative Antibody Screen POSITIVE Antibody Identification Anti-E Crossmatch See Detail Blood Bank Wristband ID Yes Quality Measures Quality Measures none Assessment & Plan Assessment Current Active Medications: Generic Name Dose Route Start Last Admin Trade Name Freq PRN Reason Stop Dose Admin Acetaminophen 650 mg 09/08/24 22:35 Acetaminophen 325 Mg Tablet PO 10/08/24 22:27 Q6H PRN mild pain and Fever >100.4 Hydrocodone Bitart/Acetaminophen 1 tab 09/08/24 22:28 Hydrocodone/Apap 5/325 Tablet PO 09/13/24 22:27 Q4HR PRN PAIN SCALE 4-10(Mod-Sev Diphenhydramine HCl 25 mg 09/08/24 22:34 Diphenhydramine 25 Mg Capsule PO 10/08/24 22:33 Q6HR PRN ITCHING Ondansetron HCl 4 mg 09/08/24 22:28 Ondansetron Inj 2 Mg/Ml Inj 2 Ml IVP 10/08/24 22:27 Q6H PRN NAUSEA OR VOMITING Protocol Pantoprazole Sodium 40 mg 09/09/24 09:00 09/09/24 08:31 Pantoprazole 40 Mg Tablet PO 10/09/24 08:59 40 mg QDAY DAKSHA Administration Plan Moses Rodriguez is a 29-year-old female with past medical history of ulcerative colitis, gastritis, and iron deficiency anemia who was admitted for acute blood loss anemia. #Acute blood loss anemia #History of ulcerative colitis #History of iron deficiency anemia She recently finished her menstrual cycle and that she had 2 days of heavy bleeding. Has most 4 BMs per day and not all of them are bloody, thus unlikely etiology of her anemia but may have contributed. Last colonoscopy on 05/16/2024, which showed friable tissue in the rectum, ascending colon, descending colon, and sigmoid colon. ? GI following, appreciate recommendations ? Transfusing 4 units PRBCs, 1 unit FFP, 1 unit platelets ? Follow-up posttransfusion H&H ? Benadryl as needed for any allergic reactions ? PTT and PT in a.m. #History of gastritis ? Protonix Hospital management: Disposition: Pending transfusions and posttransfusion H&H Diet: PUD diet Lines: PIV DVT prophylaxis: SCDs GI prophylaxis: Pantoprazole CODE STATUS: full code ----- Plan discussed with attending physician Dr. Sandro Enriquez MD PGY-1 Internal Medicine Attending Provider Attestation/Addendum I have examined the patient, reviewed labs and imaging findings, discussed the case with the resident(s), and reviewed entered orders. I agree with the plan of care as outlined in this note, with these additional summaries/recommendations: Patient seen at bedside. No acute overnight events. Patient admitted for severe symptomatic anemia/acute blood loss anemia. Hemoglobin was impressively 2.7 on admission which has improved to 6.0 after PRBC transfusions. Additional 1 unit PRBCs ordered today and follow-up posttransfusion H&H. FOBT positive in the ED. Anemia likely multifactorial secondary to ulcerative colitis and heavy menstrual periods. Gastroenterology consulted, recommendations appreciated. Patient last had colonoscopy on 05/16/2024. She does not appear to be on any ulcerative colitis medicines at this time. If she continues to have heavy menstrual periods she will need to follow-up with gynecology outpatient for further evaluation and management. Continue as needed Fox for pain management. Patient updated on the plan and in agreement. All questions answered to satisfaction. Please see residents note for additional details of management. Dr. Sandro MD
[2024-09-09 11:38] LABS: Beta HCG,Quantitative < 1 mIU/mL (<5.0)
--- NOTE | 2024-09-09 12:07 | PC.SS ---
29YO Female, reason for visit: ACUTE BLOOD LOSS ANEMIA. Patient confirmed demographic information. Patient?s primary medical surrogate decisionmaker is her significant other, Claudio Elliott [phone]. Patient reported being independent with both ADL completion and ambulation as well. [facility] PCP: [id number]. Last appt. was 09/08/24 with Dora Dawson. Next of Kin: SO Claudio Lexi [phone] Discharge plan: Home, SO Claudio to provide transportation
--- NOTE | 2024-09-09 15:53 | XR_ITS ---
Examination: Pelvic ultrasound, transabdominal, complete Technique: Transabdominal ultrasound of the pelvis performed using grayscale imaging Date and time of exam: September 09, 2024 at 1659 hours INDICATIONS: Irregular heavy menses 8 months, 3.8 cm simple left ovarian cyst on pelvic sonogram sonogram May 10, 2024 FINDINGS: Uterus 6.9 cm endometrial stripe 1.1 cm No uterine mass or intrauterine gestation Right ovary 3.6 cm arterial flow Left ovary 3.6 cm arterial flow, 2.5 x 2.5 x 2.8 cm cyst IMPRESSION: Again noted left ovarian simple cyst 2.5 x 2.5 x 2.8 cm
[2024-09-09 15:55] LABS: Hematocrit 29.4 % (36.0-46.0); Hemoglobin 9.6 g/dL (12.0-16.0)
[2024-09-09 16:08] LABS: Calcium 7.4 mg/dL (8.3-10.6)
--- NOTE | 2024-09-09 20:03 | PD.IMPROG ---
Documentation for date of: 09/09/24 Subjective Subjective Interval history: Patient posttransfusion hemoglobin hematocrit 9.6 and 29.4 Exam Vital Signs Temp Pulse Resp BP Pulse Ox O2 Del Method 97.2 F 76 16 107/73 94 L Room Air 09/09/24 16:00 09/09/24 16:00 09/09/24 16:00 09/09/24 16:00 09/09/24 16:00 09/09/24 16:00 Objective Labs 09/09/24 15:33 09/09/24 03:07 Labs: Laboratory Results - last 24 hr 09/08/24 09/09/24 09/09/24 17:20 03:07 15:33 WBC 3.8 RBC 2.62 L Hgb 6.0 L* D 9.6 L D Hct 19.3 L* 29.4 L D MCV 74 L MCH 22.9 L MCHC 31.1 RDW Std Deviation 50.2 H Plt Count 325 Neut % (Auto) 55 Lymph % (Auto) 29 [place] % (Auto) 11 Eos % (Auto) 3 Baso % (Auto) 1 Neut # (Auto) 2.1 Lymph # (Auto) 1.1 [place] # (Auto) 0.4 Eos # (Auto) 0.1 Baso # (Auto) 0.0 Immature Gran # (Auto) 0.04 H Absolute Nucleated RBC 0.07 H Immature Gran % 1 H Nucleated RBC % 2 H PT 11.5 INR 1.1 APTT 23.9 Sodium 142 Potassium 4.1 Chloride 111 H Carbon Dioxide 22.4 Anion Gap 9 BUN 7 L Creatinine 0.6 Estim Creat Clear Calc 96.1 eGFR > 60 BUN/Creatinine Ratio 12 Glucose 120 H Calculated Osmolality 282 Calcium 7.2 L 7.4 L Corrected Calcium 8.7 Magnesium 1.8 Total Bilirubin 0.5 ALT < 7 L Alkaline Phosphatase 65 Total Protein 4.9 L Albumin 2.1 L Globulin 2.8 Albumin/Globulin Ratio 0.8 L Beta HCG, Quant < 1 Blood Type A Negative Antibody Screen POSITIVE Antibody Identification Anti-E Crossmatch See Detail Blood Bank Wristband ID Yes Blood Bank Comment PLATP Ready Impressions Impression: Inflammatory bowel disease/ulcerative colitis Started the patient on sulfasalazine and folic acid Will follow Assessment & Plan A&P Narrative # Acute posthemorrhagic anemia most likely I believe due to menorrhagia and not due to the GI bleeding from the underlying inflammatory bowel disease which is not being treated Although there may be some contribution from the GI bleed as well Suggestions No need for any invasive GI workup such as EGD or colonoscopy Start sulfasalazine 500 mg 2 tablets twice daily Folic acid 1 mg p.o. daily Azathioprine 50 mg once a day Will follow the patient CRP Thank you very much for the opportunity to participate in care of this patient Time Spent With Patient Time: Total time spent is greater than 50% in coordination of care (as documented) at patient's floor/unit and/or counseling patient:
[2024-09-09] MEDS: sulfaSALAzine 500 MG TABLET 1000 MG PO (20:39)
[2024-09-10] VITALS: BP 109/79; PULSE 78; RESP 17; TEMP 36.1; O2SAT 99
[2024-09-10] MEDS: ACETAMINOPHEN 325 MG TABLET 650 MG PO (00:30)
[2024-09-10 04:00] VITALS: BP 108/80; PULSE 75; PULSE 77; RESP 16; TEMP 36.8; O2SAT 99
[2024-09-10 06:00] VITALS: BMI 19.7
[2024-09-10 06:20] LABS: Basophils % (Auto) 1 % (0-2.5); Eosinophils # (Auto) 0.2 Thou/mm3 (0.0-0.5); Eosinophils % (Auto) 3 % (0-10); Hematocrit 29.4 % (36.0-46.0); Hemoglobin 9.8 g/dL (12.0-16.0); Immature Granulocytes % (Auto) 2 % (0-0); Immature Granulocytes Auto 0.11 Thou/mm3 (0.00-0.00); Lymphocytes # (Auto) 1.2 Thou/mm3 (1.0-4.8); Lymphocytes % (Auto) 23 % (10-50); Mean Corpuscular HGB Conc 33.3 g/dl (31.0-37.0); Mean Corpuscular Hemoglobin 26.1 pg (25.0-35.0); Mean Corpuscular Volume 78 fL (80-100); Monocytes # (Auto) 0.4 Thou/mm3 (0.0-0.8); Monocytes % (Auto) 7 % (0-12); Neutrophils # (Auto) 3.3 Thou/mm3 (1.8-7.7); Neutrophils % (Auto) 65 % (37-80); Nucleated Red Blood Cell # 0.05 Thou/mm3 (0.00-0.00); Nucleated Red Blood Cell % 1 /100 WBC (0); Platelet Count 288 Thou/mm3 (140-440); RDW Standard Deviation 49.9 fL (36.4-46.3); Red Blood Count 3.75 Miln/mm3 (4.00-5.20); White Blood Count 5.1 Thou/mm3 (3.6-11.0)
[2024-09-10 06:37] LABS: Alanine Aminotransferase 12 U/L (10-49); Albumin, Serum 2.2 gm/dL (3.5-5.0); Albumin/Globulin Ratio 0.8 (1.2-2.2); Alkaline Phosphatase 72 U/L (46-116); Anion Gap 9 (7-16); BUN/Creatinine Ratio 8 Ratio (12-20); Bilirubin,Total 0.4 mg/dL (0.3-1.2); Blood Urea Nitrogen < 5 mg/dL (9-23); Calcium 7.4 mg/dL (8.3-10.6); Calcium (Corrected) 8.8 mg/dL (8.5-10.1); Carbon Dioxide 24.5 mMol/L (20.0-31.0); Chloride 108 mMol/L (98-107); Creatinine (Component) 0.6 mg/dL (0.6-1.3); Estimated Creatinine Clearance 96.1 mL/min (>60); Globulin 2.8 gm/dL (2.3-3.5); Glucose 91 mg/dL (74-106); Magnesium 1.7 mg/dL (1.6-2.6); Osmolality,Calculated 278 (275-295); Potassium 4.3 mMol/L (3.4-5.1); Sodium 141 mMol/L (136-145); eGFR > 60 See Note
[2024-09-10 08:00] VITALS: BP 98/65; PULSE 67; RESP 16; TEMP 36.2; O2SAT 99
[2024-09-10] MEDS: azaTHIOprine 50 MG TABLET PO (08:16)
[2024-09-10] MEDS: FOLIC ACID 1 MG TABLET PO (08:16)
[2024-09-10] MEDS: sulfaSALAzine 500 MG TABLET 1000 MG PO (08:16)
[2024-09-10] MEDS: PANTOPRAZOLE 40 MG TABLET PO (08:16)
[2024-09-10] MEDS: HYDROcodone/APAP 5/325 TABLET 1 TAB PO (08:16)
--- NOTE | 2024-09-10 10:30 | PD.IMPROG ---
Documentation for date of: 09/10/24 Exam Vital Signs Temp Pulse Resp BP Pulse Ox O2 Del Method 97.2 F 67 16 98/65 99 Room Air 09/10/24 08:00 09/10/24 08:00 09/10/24 08:00 09/10/24 08:00 09/10/24 08:00 09/10/24 08:00 Objective Labs 09/10/24 05:29 09/10/24 05:29 Labs: Laboratory Results - last 24 hr 09/08/24 09/09/24 09/09/24 17:20 03:07 15:33 WBC RBC Hgb 9.6 L D Hct 29.4 L D MCV MCH MCHC RDW Std Deviation Plt Count Neut % (Auto) Lymph % (Auto) Cedar % (Auto) Eos % (Auto) Baso % (Auto) Neut # (Auto) Lymph # (Auto) Cedar # (Auto) Eos # (Auto) Baso # (Auto) Immature Gran # (Auto) Absolute Nucleated RBC Immature Gran % Nucleated RBC % Sodium Potassium Chloride Carbon Dioxide Anion Gap BUN Creatinine Estim Creat Clear Calc eGFR BUN/Creatinine Ratio Glucose Calculated Osmolality Calcium 7.4 L Corrected Calcium Magnesium Total Bilirubin ALT Alkaline Phosphatase Total Protein Albumin Globulin Albumin/Globulin Ratio Beta HCG, Quant < 1 Blood Type A Negative Antibody Screen POSITIVE Antibody Identification Anti-E Crossmatch See Detail Blood Bank Wristband ID Yes Blood Bank Comment PLATP Ready 09/10/24 05:29 WBC 5.1 RBC 3.75 L Hgb 9.8 L Hct 29.4 L MCV 78 L MCH 26.1 MCHC 33.3 RDW Std Deviation 49.9 H Plt Count 288 D Neut % (Auto) 65 Lymph % (Auto) 23 Cedar % (Auto) 7 Eos % (Auto) 3 Baso % (Auto) 1 Neut # (Auto) 3.3 Lymph # (Auto) 1.2 Cedar # (Auto) 0.4 Eos # (Auto) 0.2 Baso # (Auto) 0.0 Immature Gran # (Auto) 0.11 H Absolute Nucleated RBC 0.05 H Immature Gran % 2 H Nucleated RBC % 1 H Sodium 141 Potassium 4.3 Chloride 108 H Carbon Dioxide 24.5 Anion Gap 9 BUN < 5 L Creatinine 0.6 Estim Creat Clear Calc 96.1 eGFR > 60 BUN/Creatinine Ratio 8 L Glucose 91 Calculated Osmolality 278 Calcium 7.4 L Corrected Calcium 8.8 Magnesium 1.7 Total Bilirubin 0.4 ALT 12 Alkaline Phosphatase 72 Total Protein 5.0 L Albumin 2.2 L Globulin 2.8 Albumin/Globulin Ratio 0.8 L Beta HCG, Quant Blood Type Antibody Screen Antibody Identification Crossmatch Blood Bank Wristband ID Blood Bank Comment Assessment & Plan A&P Narrative # Acute posthemorrhagic anemia most likely I believe due to menorrhagia and not due to the GI bleeding from the underlying inflammatory bowel disease which is not being treated Although there may be some contribution from the GI bleed as well Suggestions No need for any invasive GI workup such as EGD or colonoscopy Start sulfasalazine 500 mg 2 tablets twice daily Folic acid 1 mg p.o. daily Azathioprine 50 mg once a day Will follow the patient CRP Thank you very much for the opportunity to participate in care of this patient Time Spent With Patient Time: Total time spent is greater than 50% in coordination of care (as documented) at patient's floor/unit and/or counseling patient:
--- NOTE | 2024-09-10 10:44 | PD.RESDS ---
Planned Discharge Date 09/10/24 DS: Providers Provider Date of admission: 09/08/24 22:28 Primary care physician: Dora Dawson PA-C Admitting Provider: Richard Blackmon MD Attending Provider on Admission: Adis Jo MD Consults: 09/08/24 22:34 Consult to Gastroenterology Routine Comment: Consulting Provider: Rehan Fuentes Attending Provider on DC: Eran Enriquez MD Discharging Provider: Eran Enriquez MD DS: Diagnosis Problem List Completed Was Problem List Reviewed/Reconciled?: Yes Hospital Course Hospital Course Hospital course: Moses Rodriguez is a 29-year-old female with past medical history of ulcerative colitis, gastritis, and iron deficiency anemia who was admitted for acute blood loss anemia. She presented on 09/08 after routine labs showed severely low hemoglobin. Endorsed feeling dizzy, palpitations, and generalized weakness. Has history of ulcerative colitis but states that at most she has 4 bowel movement per day and not all of them are bloody. Of note, she states that she had just finished her menstrual cycle a week prior to presentation with the first 2 days with heavy bleeding requiring use of 3 large tampons per day. Otherwise, she has no other complaints. On admission, she was hemodynamically stable with BP of 103/67 and heart rate of 76 but CBC showed hemoglobin of 2.7. She was subsequently transfused 4 units PRBC and 1 unit of FFP, platelets were ordered but not able to be given. Hemoglobin then improved to 9.8 on day of discharge and given that she remained hemodynamically stable after 1 day of monitoring, she was then discharged with strong recommendations to follow-up with us at the [facility] in order to be closely monitored and for a referral to GI for UC follow-up. Also recommended to follow-up in order to obtain referral for gynecology given menorrhagia and ovarian cyst noted on pelvic ultrasound to evaluate for menorrhagia. She will be discharged with azathioprine and sulfasalazine as recommended by in-house GI specialist. Diagnoses during admission: #Acute blood loss anemia #History of ulcerative colitis #History of iron deficiency anemia #History of gastritis Discharge instructions: ? Take azathioprine 50 mg once per day ? Take sulfasalazine 1 g twice per day ? Continue taking all other home medications as prescribed ? Recommend obtaining CBC within 1 or 2 weeks to monitor hemoglobin levels ? Follow-up with PCP within 1-2 weeks of discharge and recommend referrals to gynecology and GI ? If you do not have a PCP, you can follow-up at the [facility] (you can call [phone] to make an appointment) ? If you wish to follow-up with Dr. Enriquez, schedule appointment on Sunday ? Return to ED if symptoms worsen or recur ----- Plan discussed with attending physician Dr. Sandro Enriquez MD PGY-1 Internal Medicine Time Spent with Patient Time attestation: Total time spent providing and/or coordinating discharge services: Time spent: Greater than 30 minutes Exam Vital Signs Temp Pulse Resp BP Pulse Ox O2 Del Method 97.2 F 67 16 98/65 99 Room Air 09/10/24 08:00 09/10/24 08:00 09/10/24 08:00 09/10/24 08:00 09/10/24 08:00 09/10/24 08:00 Narrative Exam General: AOx3, no acute distress, able to speak full sentences HEENT: NC/AT, mucous membranes moist, bilateral sclera anicteric Cardiovascular: regular rate and rhythm, S1/S2 present, no murmurs appreciated Pulmonary: clear to auscultation bilaterally, no rales/rhonchi/wheezes Abdominal: soft, non-tender, non-distended, no rebound/guarding, normal bowel sounds present Musculoskeletal: normal ROM, no peripheral edema Skin: warm and dry, intact, no rashes Neuro: CN II-XII intact, no focal deficits Discharge Plan Plan Patient Disposition: HOME (Self Care) Care Plan Goals: ? Take azathioprine 50 mg once per day ? Take sulfasalazine 1 g twice per day ? Continue taking all other home medications as prescribed ? Recommend obtaining CBC within 1 or 2 weeks to monitor hemoglobin levels ? Follow-up with PCP within 1-2 weeks of discharge and recommend referrals to gynecology and GI ? If you do not have a PCP, you can follow-up at the [facility] (you can call [phone] to make an appointment) ? If you wish to follow-up with Dr. Enriquez, schedule appointment on Sunday ? Return to ED if symptoms worsen or recur Prescriptions/Referrals Prescriptions/Med Rec: New azathioprine 50 mg Tablet 50 mg PO DAILY 30 Days Qty: 30 0RF sulfasalazine 500 mg Tablet 1,000 mg PO BID 30 Days Qty: 120 0RF folic acid 1 mg Tablet 1 mg PO QDAY 30 Days Qty: 30 0RF Continued ferrous sulfate [iron] 325 mg (65 mg iron) Tablet 325 mg PO EVERYOTHERDAY Qty: 30 0RF famotidine 20 mg tablet 20 mg PO BID 30 Days Qty: 60 1RF Referrals: Rehan Fuentes MD [Physician] - Dora Dawson PA-C [Primary Care Provider] - Patient/Caregiver Discharge Instructions Education Materials: Anemia Print Language: Mozambican Stand Alone Forms: Dinora Award Info., Patient Portal Info Letter Discharge Order Discharge Orders: Discharge (Routine); Ordered 09/10/24 Ordered By: Eran Martinez [facility] Quality Discharge Quality Measures VTE prophylaxis (SCDs given bleeding) Attestestation MD Attestation I have examined the patient, reviewed labs and imaging findings, discussed the case with the resident(s), and reviewed entered orders. I agree with the plan of care as outlined in this note. Time Spent: [address] Sandro MD
[2024-09-10 10:46] VITALS: PULSE 67
--- NOTE | 2024-09-10 11:25 | PC.NURSE ---
Pt ready for discharge. Paperwork signed and iv discontinue. 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
[2024-09-10 12:00] VITALS: BP 99/69; PULSE 67; PULSE 90; RESP 16; TEMP 36.2; O2SAT 99
[2024-09-10 16:00] VITALS: PULSE 90
[2024-09-16 07:08] LABS: Calprotectin, Stool* 1730 mcg/g
== END 2024-09-10 15:17 | disposition home or self-care (01) | DRG 663 ==
LOC: SERX 22:08 → SERHOLD 22:56 → S3NX 23:54
PROVIDERS: Nurse Practitioner Family; Specialist; Student in an Organized Health Care Education/Training Program; Admitting Provider Internal Medicine; Emergency Provider Emergency Medicine; Visit Provider Student in an Organized Health Care Education/Training Program
DX: D62 Acute posthemorrhagic anemia (principal); E88.09 Other disorders of plasma-protein metabolism, not elsewhere classified; D50.9 Iron deficiency anemia, unspecified; F17.200 Nicotine dependence, unspecified, uncomplicated; K51.911 Ulcerative colitis, unspecified with rectal bleeding; N83.202 Unspecified ovarian cyst, left side; N92.0 Excessive and frequent menstruation with regular cycle; K63.89 Other specified diseases of intestine; K29.70 Gastritis, unspecified, without bleeding
CPT/HCPCS: 36415; 36430; 76856; 80053; 82310; 83735; 83993; 84702; 85014; 85018; 85025; 85610; 85730; 86850; 86870; 86900; 86901; 86902; 86921; 86922; 86927; 86965; 93005; 93225; 99291; J7500; P9016; P9060; A9270

== ENCOUNTER 2024-09-24 14:28 | Outpatient (AMB) | payer MEDICAID, SELFPAY ==
[2024-09-24 14:39] VITALS: BP 100/66; PULSE 101; RESP 17; TEMP 36.6; O2SAT 98
--- NOTE | 2024-09-24 14:39 | PD.RESCLINIC ---
Vital Signs 09/24/24 14:39 Height 1.5 m Height Method Measured Weight 44.962 kg Weight Measurement Method Standing Scale BMI 20.0 BP 100/66 Blood Pressure Source Automatic Cuff Blood Pressure Location Right Upper Arm Position Sitting Respiration 17 Pulse 101 H Pulse Source Monitor Temp 97.9 F Temp Source Temporal Artery Scan Pulse Oximetry (%) 98 Oxygen Delivery Method Room Air Allergies/Meds Allergies & Medications Allergies No Known Allergies Allergy (Verified 09/24/24 14:40) Medication Reconciliation famotidine 20 mg tablet 20 mg PO BID 1 month #60 tabs 05/18/24 [Rx Confirmed 09/24/24] ferrous sulfate 325 mg (65 mg iron) tablet (iron) 325 mg PO EVERYOTHERDAY #30 tabs 05/18/24 [Rx Confirmed 09/24/24] azathioprine 50 mg tablet 50 mg PO DAILY 30 days #30 tabs 09/10/24 [Rx Confirmed 09/24/24] folic acid 1 mg tablet 1 mg PO QDAY 30 days #30 tabs 09/10/24 [Rx Confirmed 09/24/24] sulfasalazine 500 mg tablet 1,000 mg (2 x 500 mg) PO BID 30 days #120 tabs 09/10/24 [Rx Confirmed 09/24/24] MA Intake Visit Data Collection New Patient or Established: Established Patient (seen at [facility] within 3 years) Seen by Clinical Staff ONLY (RN/REGINA): No Reason for Visit:: ER F\U Pain Present Currently: No Pain scale:: 0 Pain Scale Used: Garcia-Arias/Numerical Weapons Officer Required: No PCP or OBGYN visit in last 3 months: Yes Date of Last PCP or OBGYN visit: 09/10/24 Hx Now: No Do You Feel Safe at Home: Yes Authorities Contacted: N/A Smoking Status Smoking Status: Never smoker Immunization / Flu Flu Vaccine in the Last 12 Months: No Flu Vaccine Exclusion Criteria: No Exclusion Criteria Past Medical History Past Medical History NEUROLOGIC: Negative Neurological Disorders or Seizures CARDIAC: Negative Cardiac Disorders or Congestive Heart Failure RESPIRATORY: Negative Chronic Obstructive Pulmonary Disease (COPD) GASTROINTESTINAL: Negative Gastrointestinal Disorders or Hepatitis GENITOURINARY: Negative Genitourinary Disorders or Renal Disease REPRODUCTIVE: Positive Previous Pregnancies; Negative Endometriosis, Pelvic Inflammatory Disease or Uterine Prolapse ENDOCRINE: Negative Endocrine Disorders, Diabetes Mellitus Type 1 or Diabetes Mellitus Type 2 HEMATOLOGIC: Positive Blood Disorders and Anemia OTHER HISTORY: Positive Hospitalization and Blood Transfusions; Negative Autoimmune Disease, Down Syndrome, Developmental Delay, Shingles, Falls, Blood Transfusion Reaction, Anesthesia Reactions (per pt. never received anesthesia), MRSA, VRSA, Vancomycin-Resistant Enterococci, Human Immunodeficiency Virus (HIV), Chicken Pox, Measles, Mumps, Rubella (Salvadorean Measles), Pertussis, Clostridium Difficile or Cancer Family History FAMILY HISTORY: Positive Family Surgery; Negative Family Psychiatric Problems, Family Respiratory Disorders, Family Cardiac Disorders, Family Gastrointestinal Problems, Family Cancer or Family Anesthesia Reaction Surgical History SURGICAL: Negative Section Social History SMOKING STATUS: Smoking status: Never smoker SECOND HAND EXPOSURE: second hand exposure: No ALCOHOL: Alcohol Intake: Never HOUSING: Housing: House LIVES WITH: Lives With: Significant Other Patient Portal Questionaires PHQ-9 PHQ-2 Over the last 2 weeks, how often have you been bothered by any of the following problems? 1. Little interest or pleasure in doing things: not at all 2. Feeling down, depressed, or hopeless: not at all Total score: 0 PHQ-9 3. Trouble falling or staying asleep, or sleeping too much: Not at all 4. Feeling tired or having little energy: Not at all 5. Poor appetite or overeating: Not at all 6. Feeling bad about yourself - or that you are a failure or have let yourself or your family down: Not at all 7. Trouble concentrating on things, such as reading the newspaper or watching television: Not at all 8. Moving or speaking so slowly that other people could have noticed? - Or the opposite - being so fidgety or restless that you have been moving around a lot more than usual: not at all 9. Thoughts that you would be better off or of hurting yourself in some way: Not at all Total score: 0 If you checked off any problems, how difficult have these problems made it for you to do your work, take care of things at home, or get along with other people?: not difficult at all Source: Developed by Drs. Jarocho Lemus, Angela Clark, Aren Garcia and colleagues, with an educational reji from [employer]. Depression screen completed yes Social History Living Situation History Housing: House Tobacco History Smoking Status: Never smoker Second Hand Smoke Exposure: No Alcohol History Alcohol Intake: Never Domestic Abuse History Do You Feel Safe at Home: Yes Review of Systems Report any current symptoms Only answer those that you have currently: Past Medical History Past Medical History Have you ever been diagnosed with any of the following: Neurological Problems Seizures: No Cardiology Problems Congestive Heart Failure: No Respiratory Problems Chronic Obstructive Pulmonary Disease (COPD): No Stomache/Intestinal Problems Hepatitis: No Genital/Urinary Problems Renal Disease: No Reproductive Problems Endometriosis: No Pelvic Inflammatory Disease: No Previous Pregnancies: Yes Uterine Prolapse: No Endocrine Problems Diabetes Mellitus Type 1: No Diabetes Mellitus Type 2: No Blood Problems Anemia: Yes Other Problems Hospitalization: Yes Autoimmune Disease: No Down Syndrome: No Developmental Delay: No Shingles: No Falls: No Blood Transfusions: Yes Blood Transfusion Reaction: No Anesthesia Reactions: No (per pt. never received anesthesia) MRSA: No VRSA: No Vancomycin-Resistant Enterococci: No Human Immunodeficiency Virus (HIV): No Chicken Pox: No Measles: No Mumps: No Rubella (Salvadorean Measles): No Pertussis: No Clostridium Difficile: No Cancer: No History of Present Illness HPI Narrative Moses Rodriguez is a 29-year-old female with past medical history of ulcerative colitis, gastritis, and iron deficiency anemia who presents to the [facility] for follow-up after being admitted at [facility] on 09/08 for acute blood loss anemia. At that time labs showed severely low hemoglobin of 2.7 and only endorsed feeling dizzy, palpitations, and generalized weakness. Has history of ulcerative colitis but states that at most she has 4 bowel movement per day and not all of them are bloody. Of note, she states that she had just finished her menstrual cycle a week prior to presentation with the first 2 days with heavy bleeding requiring use of 3 large tampons per day. States that it was only after her third child did she start to have heavy menstrual cycles. Since her bowel movements have not changed since discharge and is not time for her next menstrual cycle, she has not had any concerns for large volume blood loss. Thus, will place consult to GI for close follow-up for her ulcerative colitis and gynecology for close follow-up for her menorrhagia. Additionally, will plan to obtain CBC in one week and follow-up afterwards. Review of Systems Review of Systems Systems Reviewed: All systems reviewed, normal except as documented Objective/Exam Narrative Physical exam: General: AOx3, no acute distress, able to speak full sentences HEENT: NC/AT, mucous membranes moist, bilateral sclera anicteric Cardiovascular: regular rate and rhythm, S1/S2 present, no murmurs appreciated Pulmonary: clear to auscultation bilaterally, no rales/rhonchi/wheezes Abdominal: soft, non-tender, non-distended, no rebound/guarding, normal bowel sounds present Musculoskeletal: normal ROM, no peripheral edema Skin: warm and dry, intact, no rashes Neuro: CN II-XII intact, no focal deficits Assessment & Plan Diagnosis / Problem List (1) Menorrhagia: Status: Acute Qualifiers: Menorrhagia type: with onset of menstrual periods Qualified Code(s): N92.2 - Excessive menstruation at puberty Assessment & Plan: Admitted at [facility] on 09/08 for acute blood loss anemia. At that time labs showed severely low hemoglobin of 2.7 and only endorsed feeling dizzy, palpitations, and generalized weakness. Has history of ulcerative colitis but states that at most she has 4 bowel movement per day and not all of them are bloody. Of note, she states that she had just finished her menstrual cycle a week prior to presentation with the first 2 days with heavy bleeding requiring use of 3 large tampons per day. States that it was only after her third child did she start to have heavy menstrual cycles. Plan: ? Obtain CBC in one week and follow-up ? Referral to gynecology (2) Ulcerative colitis: Status: Acute Qualifiers: Ulcerative colitis location: ulcerative pancolitis Digestive disease complication type: with rectal bleeding Qualified Code(s): K51.011 - Ulcerative (chronic) pancolitis with rectal bleeding Assessment & Plan: States that her bowel movements have not changed in that she continues to have at most 4 bowel movements per day and are largely nonbloody at this time on current regimen. Plan: ? Take azathioprine 50 mg once per day ? Take sulfasalazine 1 g twice per day ? 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 N92.0 - Excessive and frequent menstruation with regular cycle Gastroenterology K51.011 - Ulcerative (chronic) pancolitis with rectal bleeding Office Procedures [facility] Level of Care Nursing/Assessment Patient Status: Established Patient Nursing Assessment/Reassessment: Medication Reconciliation, Update PMH in EMR and Vital Signs Coordination of Care: Complex Care/Chronic Disease 5 or more, Education Complex Pt/Fam and Consent,records obtained, informed consent Established Patient Charge Established Patient Point Assignment: 90 Established Patient Point Charge: EP Level 3 (80-115)
== END 2024-09-24 15:04 | disposition home or self-care (01) ==
LOC: HODAHC 14:28
DX: K51.011 Ulcerative (chronic) pancolitis with rectal bleeding (principal); N92.0 Excessive and frequent menstruation with regular cycle
CPT/HCPCS: 99213; G0463

== ENCOUNTER 2024-10-10 08:34 | Outpatient (AMB) | payer MEDICAID, SELFPAY ==
[2024-10-10 08:44] VITALS: BP 102/67; PULSE 98; RESP 18; TEMP 36.8; O2SAT 99; BMI 20.2
--- NOTE | 2024-10-10 08:44 | ACNOTE_ITS ---
Vital Signs 10/10/24 08:44 Height 1.5 m Height Method Stated Weight 45.586 kg Weight Measurement Method Standing Scale BMI 20.2 BP 102/67 Blood Pressure Source Automatic Cuff Blood Pressure Location Right Upper Arm Position Sitting Respiration 18 Pulse 98 Pulse Source Monitor Temp 98.2 F Temp Source Temporal Artery Scan Pulse Oximetry (%) 99 Oxygen Delivery Method Room Air Allergies/Meds Allergies & Medications Allergies No Known Allergies Allergy (Verified 10/10/24 12:09) Medication Reconciliation famotidine 20 mg tablet 20 mg PO BID 1 month #60 tabs 05/18/24 [Rx Confirmed 10/10/24] ferrous sulfate 325 mg (65 mg iron) tablet (iron) 325 mg PO EVERYOTHERDAY #30 tabs 05/18/24 [Rx Confirmed 10/10/24] azathioprine 50 mg tablet 50 mg PO DAILY 30 days #30 tabs 10/10/24 [Rx Confirmed 10/10/24] folic acid 1 mg tablet 1 mg PO QDAY 30 days #30 tabs 10/10/24 [Rx Confirmed 10/10/24] norethindrone 1.5 mg-ethinyl estradiol 30 mcg(21)/iron 75 mg(7) tablet (Loestrin Fe 1.5/30 (28-Day)) 1 tab PO QDAY #84 tabs 10/10/24 [Rx Confirmed 10/10/24] sulfasalazine 500 mg tablet 1,000 mg (2 x 500 mg) PO BID 30 days #120 tabs 10/10/24 [Rx Confirmed 10/10/24] MA Intake Visit Data Collection New Patient or Established: Established Patient (seen at [facility] within 3 years) Seen by Clinical Staff ONLY (RN/MA): No Pain Present Currently: No Pain scale:: 0 Pain Scale Used: Garcia-Arias/[employer] Required: No PCP or OBGYN visit in last 3 months: Yes Hx Now: No Do You Feel Safe at Home: Yes Authorities Contacted: N/A Smoking Status Smoking Status: Never smoker Immunization / Flu Flu Vaccine in the Last 12 Months: No Flu Vaccine Exclusion Criteria: No Exclusion Criteria Past Medical History Past Medical History NEUROLOGIC: Negative Neurological Disorders or Seizures CARDIAC: Negative Cardiac Disorders or Congestive Heart Failure RESPIRATORY: Negative Chronic Obstructive Pulmonary Disease (COPD) GASTROINTESTINAL: Negative Gastrointestinal Disorders or Hepatitis GENITOURINARY: Negative Genitourinary Disorders or Renal Disease REPRODUCTIVE: Positive Previous Pregnancies; Negative Endometriosis, Pelvic Inflammatory Disease or Uterine Prolapse ENDOCRINE: Negative Endocrine Disorders, Diabetes Mellitus Type 1 or Diabetes Mellitus Type 2 HEMATOLOGIC: Positive Blood Disorders and Anemia OTHER HISTORY: Positive Hospitalization and Blood Transfusions; Negative Autoimmune Disease, Down Syndrome, Developmental Delay, Shingles, Falls, Blood Transfusion Reaction, Anesthesia Reactions (per pt. never received anesthesia), MRSA, VRSA, Vancomycin-Resistant Enterococci, Human Immunodeficiency Virus (HIV), Chicken Pox, Measles, Mumps, Rubella (Luxembourger Measles), Pertussis, Clostridium Difficile or Cancer Family History FAMILY HISTORY: Positive Family Surgery; Negative Family Psychiatric Problems, Family Respiratory Disorders, Family Cardiac Disorders, Family Gastrointestinal Problems, Family Cancer or Family Anesthesia Reaction Surgical History SURGICAL: Negative Section Social History SMOKING STATUS: Smoking status: Never smoker SECOND HAND EXPOSURE: second hand exposure: No ALCOHOL: Alcohol Intake: Never HOUSING: Housing: House LIVES WITH: Lives With: Significant Other Patient Portal Questionaires PHQ-9 PHQ-2 Over the last 2 weeks, how often have you been bothered by any of the following problems? 1. Little interest or pleasure in doing things: not at all PHQ-9 8. Moving or speaking so slowly that other people could have noticed? - Or the opposite - being so fidgety or restless that you have been moving around a lot more than usual: not at all Source: Developed by Drs. Jarocho Lemus, Angela Clark, Aren Garcia and colleagues, with an educational reji from [employer]. Social History Living Situation History Housing: House Tobacco History Smoking Status: Never smoker Second Hand Smoke Exposure: No Alcohol History Alcohol Intake: Never Domestic Abuse History Do You Feel Safe at Home: Yes Review of Systems Report any current symptoms Only answer those that you have currently: Past Medical History Past Medical History Have you ever been diagnosed with any of the following: Neurological Problems Seizures: No Cardiology Problems Congestive Heart Failure: No Respiratory Problems Chronic Obstructive Pulmonary Disease (COPD): No Stomache/Intestinal Problems Hepatitis: No Genital/Urinary Problems Renal Disease: No Reproductive Problems Endometriosis: No Pelvic Inflammatory Disease: No Previous Pregnancies: Yes Uterine Prolapse: No Endocrine Problems Diabetes Mellitus Type 1: No Diabetes Mellitus Type 2: No Blood Problems Anemia: Yes Other Problems Hospitalization: Yes Autoimmune Disease: No Down Syndrome: No Developmental Delay: No Shingles: No Falls: No Blood Transfusions: Yes Blood Transfusion Reaction: No Anesthesia Reactions: No (per pt. never received anesthesia) MRSA: No VRSA: No Vancomycin-Resistant Enterococci: No Human Immunodeficiency Virus (HIV): No Chicken Pox: No Measles: No Mumps: No Rubella (Luxembourger Measles): No Pertussis: No Clostridium Difficile: No Cancer: No History of Present Illness HPI Narrative Moses Rodriguez is a 29-year-old female with past medical history of ulcerative colitis, gastritis, and iron deficiency anemia who presents to the [facility] for follow-up. Admitted at [facility] on 09/08 for acute blood loss anemia with hemoglobin of 2.7 and only endorsed feeling dizzy, palpitations, and generalized weakness.? Has history of ulcerative colitis but states that at most she has 4 bowel movement per day and not all of them are bloody.? States she had just finished her menstrual cycle a week prior to presentation with the first 2 days with heavy bleeding requiring use of 3 large tampons per day.? Heavy menses started after third child was born. ? Since discharge, bowel movements have not changed and had her menstrual cycle after last visit on 09/24 with only four days of menstruation and the first two days with heavy flow.? She denies any palpitations, lightheadedness, or generalized weakness.? CBC was ordered during prior visit and states that she obtained labs at [facility], but unable to find labs so we will order CBC today.? She is interested in contraception but not interested in IUDs or abnormal implant.? Thus, will order oral contraceptive pills that she states she is willing to take.? States she is interested in possibility of becoming in the future.? Insurance approved for GI and will send to Dr. Alejo's office today.? Will also speak to front office personnel regarding referral to gynecology.? Follow-up in 6 weeks unless CBC shows significant abnormalities. Review of Systems Review of Systems Systems Reviewed: All systems reviewed, normal except as documented Objective/Exam Narrative Physical exam: General: AOx3, no acute distress, able to speak full sentences HEENT: NC/AT, mucous membranes moist, bilateral sclera anicteric Cardiovascular: regular rate and rhythm, S1/S2 present, no murmurs appreciated Pulmonary: clear to auscultation bilaterally, no rales/rhonchi/wheezes Abdominal: soft, non-tender, non-distended, no rebound/guarding, normal bowel sounds present Musculoskeletal: normal ROM, no peripheral edema Skin: warm and dry, intact, no rashes Neuro: CN II-XII intact, no focal deficits Assessment & Plan Diagnosis / Problem List (1) Menorrhagia: Status: Acute Qualifiers: Menorrhagia type: with onset of menstrual periods Qualified Code(s): N92.2 - Excessive menstruation at puberty Assessment & Plan: Admitted at [facility] on 09/08 for acute blood loss anemia. At that time labs showed severely low hemoglobin of 2.7 and only endorsed feeling dizzy, palpitations, and generalized weakness. Has history of ulcerative colitis but states that at most she has 4 bowel movement per day and not all of them are bloody. Of note, she states that she had just finished her menstrual cycle a week prior to presentation with the first 2 days with heavy bleeding requiring use of 3 large tampons per day. States that it was only after her third child did she start to have heavy menstrual cycles. Plan: ? CBC ordered to monitor hemoglobin ? Referral to gynecology ? Follow-up in 6 weeks (2) Ulcerative colitis: Status: Acute Qualifiers: Digestive disease complication type: with rectal bleeding Ulcerative colitis location: ulcerative pancolitis Qualified Code(s): K51.011 - Ulcerative (chronic) pancolitis with rectal bleeding Assessment & Plan: Bowel movements have not changed in that she continues to have at most 4 bowel movements per day and are largely nonbloody at this time on current regimen. Plan: ? Take azathioprine 50 mg once per day ? Take sulfasalazine 1 g twice per day ? Folic acid 1 mg daily ? Referral to GI approved by insurance and sent to Dr. Alejo's office (3) Contraception management: Status: Acute Qualifiers: Contraceptive encounter type: initial prescription Contraceptive type: pill Qualified Code(s): Z30.011 - Encounter for initial prescription of contraceptive pills Assessment & Plan: States that she is interested in contraception with possibility of becoming in the future. She is not interested in IUDs or subdermal patch, which would likely be most beneficial for her given her history of menorrhagia. However, we will start with low-dose estrogen oral contraceptive pills with some iron supplementation and see how patient tolerates. Counseled on importance of maintaining strict regimen with pills and patient is willing to adhere to regimen. Plan: ? Loestrin Fe 1.5/31 tablet daily for 28 day cycle Orders: Orders CBC Today Office Procedures [facility] Level of Care Nursing/Assessment Patient Status: Established Patient Nursing Assessment/Reassessment: Medication Reconciliation, Update PMH in EMR and Vital Signs Coordination of Care: Complex Care and Chronic Disease 1-5, Consent,records obtained, informed consent, Education Simp Pt/Fam, Lab and Imaging orders and Staff clarify orders Established Patient Charge Established Patient Point Assignment: 100 Established Patient Point Charge: EP Level 3 (80-115)
== END 2024-10-10 09:30 | disposition home or self-care (01) ==
LOC: HODAHC 08:34
PROVIDERS: Supervising Provider Internal Medicine
DX: K51.011 Ulcerative (chronic) pancolitis with rectal bleeding (principal); N92.0 Excessive and frequent menstruation with regular cycle; Z30.011 Encounter for initial prescription of contraceptive pills
CPT/HCPCS: 99213; G0463

== ENCOUNTER 2024-11-28 10:02 | Outpatient (AMB) | payer MEDICAID, SELFPAY ==
[2024-11-28 10:09] VITALS: BP 106/73; PULSE 100; RESP 18; TEMP 36.7; O2SAT 100; BMI 20.5
--- NOTE | 2024-11-28 10:09 | PD.RESCLINIC ---
Vital Signs 11/28/24 10:09 Height 1.5 m Height Method Stated Weight 46.266 kg Weight Measurement Method Standing Scale BMI 20.5 BP 106/73 Blood Pressure Source Automatic Cuff Blood Pressure Location Right Upper Arm Position Sitting Respiration 18 Pulse 100 Pulse Source Monitor Temp 98.0 F Temp Source Oral Pulse Oximetry (%) 100 Oxygen Delivery Method Room Air Allergies/Meds Allergies & Medications Allergies No Known Allergies Allergy (Verified 11/30/24 14:57) Medication Reconciliation ferrous sulfate 325 mg (65 mg iron) tablet (iron) 325 mg PO EVERYOTHERDAY #30 tabs 05/18/24 [Rx Confirmed 11/28/24] norethindrone 1.5 mg-ethinyl estradiol 30 mcg(21)/iron 75 mg(7) tablet (Loestrin Fe 1.5/30 (28-Day)) 1 tab PO QDAY #84 tabs 10/10/24 [Rx Confirmed 11/28/24] azathioprine 50 mg tablet 50 mg PO DAILY 30 days #30 tabs 11/17/24 [Rx Confirmed 11/28/24] famotidine 20 mg tablet 20 mg PO BID 1 month #60 tabs 11/17/24 [Rx Confirmed 11/28/24] folic acid 1 mg tablet 1 mg PO QDAY 30 days #30 tabs 11/17/24 [Rx Confirmed 11/28/24] sulfasalazine 500 mg tablet 1,000 mg (2 x 500 mg) PO BID 30 days #120 tabs 11/17/24 [Rx Confirmed 11/28/24] MA Intake Visit Data Collection New Patient or Established: Established Patient (seen at [facility] within 3 years) Seen by Clinical Staff ONLY (RN/MA): No Pain Present Currently: No PCP or OBGYN visit in last 3 months: Yes Smoking Status Smoking Status: Never smoker Immunization / Flu Flu Vaccine in the Last 12 Months: No Flu Vaccine Exclusion Criteria: No Exclusion Criteria Past Medical History Past Medical History NEUROLOGIC: Negative Neurological Disorders or Seizures CARDIAC: Negative Cardiac Disorders or Congestive Heart Failure RESPIRATORY: Negative Chronic Obstructive Pulmonary Disease (COPD) GASTROINTESTINAL: Negative Gastrointestinal Disorders or Hepatitis GENITOURINARY: Negative Genitourinary Disorders or Renal Disease REPRODUCTIVE: Positive Previous Pregnancies; Negative Endometriosis, Pelvic Inflammatory Disease or Uterine Prolapse ENDOCRINE: Negative Endocrine Disorders, Diabetes Mellitus Type 1 or Diabetes Mellitus Type 2 HEMATOLOGIC: Positive Blood Disorders and Anemia OTHER HISTORY: Positive Hospitalization and Blood Transfusions; Negative Autoimmune Disease, Down Syndrome, Developmental Delay, Shingles, Falls, Blood Transfusion Reaction, Anesthesia Reactions (per pt. never received anesthesia), MRSA, VRSA, Vancomycin-Resistant Enterococci, Human Immunodeficiency Virus (HIV), Chicken Pox, Measles, Mumps, Rubella ([place] Measles), Pertussis, Clostridium Difficile or Cancer Family History FAMILY HISTORY: Positive Family Surgery; Negative Family Psychiatric Problems, Family Respiratory Disorders, Family Cardiac Disorders, Family Gastrointestinal Problems, Family Cancer or Family Anesthesia Reaction Surgical History SURGICAL: Negative Section Social History SMOKING STATUS: Smoking status: Never smoker SECOND HAND EXPOSURE: second hand exposure: No ALCOHOL: Alcohol Intake: Never HOUSING: Housing: House LIVES WITH: Lives With: Significant Other Patient Portal Questionaires PHQ-9 PHQ-2 Over the last 2 weeks, how often have you been bothered by any of the following problems? 1. Little interest or pleasure in doing things: not at all PHQ-9 8. Moving or speaking so slowly that other people could have noticed? - Or the opposite - being so fidgety or restless that you have been moving around a lot more than usual: not at all Source: Developed by Drs. Jarocho Lemus, Angela Clark, Aren Garcia and colleagues, with an educational reji from [employer]. Social History Living Situation History Housing: House Tobacco History Smoking Status: Never smoker Second Hand Smoke Exposure: No Alcohol History Alcohol Intake: Never Review of Systems Report any current symptoms Only answer those that you have currently: Past Medical History Past Medical History Have you ever been diagnosed with any of the following: Neurological Problems Seizures: No Cardiology Problems Congestive Heart Failure: No Respiratory Problems Chronic Obstructive Pulmonary Disease (COPD): No Stomache/Intestinal Problems Hepatitis: No Genital/Urinary Problems Renal Disease: No Reproductive Problems Endometriosis: No Pelvic Inflammatory Disease: No Previous Pregnancies: Yes Uterine Prolapse: No Endocrine Problems Diabetes Mellitus Type 1: No Diabetes Mellitus Type 2: No Blood Problems Anemia: Yes Other Problems Hospitalization: Yes Autoimmune Disease: No Down Syndrome: No Developmental Delay: No Shingles: No Falls: No Blood Transfusions: Yes Blood Transfusion Reaction: No Anesthesia Reactions: No (per pt. never received anesthesia) MRSA: No VRSA: No Vancomycin-Resistant Enterococci: No Human Immunodeficiency Virus (HIV): No Chicken Pox: No Measles: No Mumps: No Rubella ([place] Measles): No Pertussis: No Clostridium Difficile: No Cancer: No History of Present Illness HPI Narrative Moses Rodriguez is a 29-year-old female with past medical history of ulcerative colitis, gastritis, and iron deficiency anemia who presents to the [facility] for follow-up. States that her bowel movements remain stable at around 3-4 per day and not all of them are bloody, though she does endorse episodes of incontinence and that it does affect her ability to freely drive. During last visit, was also started on OCPs and states did has had two menstrual cycles but both were room attendant than previous menstrual cycles prior to initiating OCPs. CBC also order during last visit and showed hemoglobin of 8, which is also prior to starting OCPs. Thus, will order repeat CBC to further evaluate. Also states she has been losing significant amount of hair. Denies cold intolerance, nail or skin changes. Received letter from Dr. Alejo's office and encouraged patient to contact office to follow-up. At this time, sales engineer consult still in process but order placed. Review of Systems Review of Systems Systems Reviewed: All systems reviewed, normal except as documented Objective/Exam Narrative Physical exam: General: AOx3, no acute distress, able to speak full sentences HEENT: conjunctival pallor; NC/AT, mucous membranes moist Cardiovascular: regular rate and rhythm, S1/S2 present, no murmurs appreciated Pulmonary: clear to auscultation bilaterally, no rales/rhonchi/wheezes Musculoskeletal: slightly delayed capillary refill; normal ROM, no peripheral edema Skin: dry skin, intact, no rashes Assessment & Plan Diagnosis / Problem List (1) Menorrhagia: Status: Acute Qualifiers: Menorrhagia type: with onset of menstrual periods Qualified Code(s): N92.2 - Excessive menstruation at puberty Assessment & Plan: Given hair loss, dry skin, and abnormal menstrual cycles will order baseline TSH and consider FSH/LH during next visit. Plan: ? Repeat CBC ordered to monitor hemoglobin ? Follow-up TSH ? Follow-up on referral to gynecology ? RTC in 6 weeks (2) Ulcerative colitis: Status: Acute Qualifiers: Ulcerative colitis location: ulcerative pancolitis Digestive disease complication type: with rectal bleeding Qualified Code(s): K51.011 - Ulcerative (chronic) pancolitis with rectal bleeding Assessment & Plan: Bowel movements have not changed in that she continues to have at most 4 bowel movements per day and are largely nonbloody at this time on current regimen. Plan: ? Take azathioprine 50 mg once per day ? Take sulfasalazine 1 g twice per day ? Folic acid 1 mg daily ? Referral to GI approved by insurance and sent to Dr. Alejo's office (3) Contraception management: Status: Acute Qualifiers: Contraceptive encounter type: initial prescription Contraceptive type: pill Qualified Code(s): Z30.011 - Encounter for initial prescription of contraceptive pills Assessment & Plan: States that she is interested in contraception with possibility of becoming in the future. She is not interested in IUDs or subdermal patch, which would likely be most beneficial for her given her history of menorrhagia. However, we will start with low-dose estrogen oral contraceptive pills with some iron supplementation and see how patient tolerates. Counseled on importance of maintaining strict regimen with pills and patient is willing to adhere to regimen. Office Procedures [facility] Level of Care Nursing/Assessment Patient Status: Established Patient Nursing Assessment/Reassessment: Medication Reconciliation, Update PMH in EMR and Vital Signs Coordination of Care: Complex Care and Chronic Disease 1-5, Education Complex Pt/Fam, Results/Orders obtained and Staff clarify orders Established Patient Charge Established Patient Point Assignment: 90 Established Patient Point Charge: EP Level 3 (80-115)
== END 2024-11-28 11:13 | disposition home or self-care (01) ==
LOC: HODAHC 10:02
PROVIDERS: Supervising Provider Internal Medicine
DX: N92.0 Excessive and frequent menstruation with regular cycle (principal); K51.911 Ulcerative colitis, unspecified with rectal bleeding; Z30.011 Encounter for initial prescription of contraceptive pills
CPT/HCPCS: 99213; G0463

== ENCOUNTER 2024-11-30 02:33 | Emergency (ER) | payer MEDICAID, SELFPAY ==
[2024-11-30 02:34] VITALS: BMI 20.2
[2024-11-30 02:58] VITALS: BP 110/76; RESP 16; TEMP 37.1; O2SAT 100
[2024-11-30 02:59] VITALS: BMI 20.2
--- NOTE | 2024-11-30 03:06 | XR_ITS ---
Examination: Right ankle 2 views Technique: AP lateral right ankle 2 views Date and time: November 30, 2024 0319 hrs. Indications: Rectal pain beginning today. Findings: No ankle fracture or dislocation. Mild lateral malleolar soft tissue swelling No foreign body Impression: No fracture or dislocation.
[2024-11-30] MEDS: HYDROcodone/APAP 5/325 TABLET 1 TAB PO (04:11)
[2024-11-30 04:13] LABS: Basophils # (Auto) 0.0 Thou/mm3 (0.0-0.2); Basophils % (Auto) 1 % (0-2.5); Eosinophils # (Auto) 0.1 Thou/mm3 (0.0-0.5); Eosinophils % (Auto) 3 % (0-10); Immature Granulocytes Auto 0.01 Thou/mm3 (0.00-0.00); Lymphocytes # (Auto) 0.8 Thou/mm3 (1.0-4.8); Lymphocytes % (Auto) 24 % (10-50); Mean Corpuscular HGB Conc 26.9 g/dl (31.0-37.0); Mean Corpuscular Hemoglobin 19.1 pg (25.0-35.0); Mean Corpuscular Volume 71 fL (80-100); Monocytes # (Auto) 0.3 Thou/mm3 (0.0-0.8); Monocytes % (Auto) 8 % (0-12); Neutrophils # (Auto) 2.2 Thou/mm3 (1.8-7.7); Neutrophils % (Auto) 64 % (37-80); Nucleated Red Blood Cell # 0.03 Thou/mm3 (0.00-0.00); Nucleated Red Blood Cell % 1 /100 WBC (0); Platelet Count 336 Thou/mm3 (140-440); RDW Standard Deviation 45.1 fL (36.4-46.3); Red Blood Count 2.72 Miln/mm3 (4.00-5.20); White Blood Count 3.4 Thou/mm3 (3.6-11.0)
[2024-11-30 04:18] LABS: Hematocrit 19.3 % (36.0-46.0); Hemoglobin 5.2 g/dL (12.0-16.0)
[2024-11-30 04:19] LABS: Path Review Blood Smear Sent to Pathologist
[2024-11-30 04:22] LABS: B-Type Natriuretic Peptide < 20 pg/mL (0-100)
--- NOTE | 2024-11-30 04:24 | PD.EDRME ---
Rapid Medical Screening Exam RME Arrival date/time: 11/30/24 02:33 This is a case of 29-year-old female with history of anemia and blood transfusion came in in the emergency room due to left ankle pain and swelling today patient denies any injury or trauma persistence of the symptoms this patient decided to sought consult here in the emergency room Chief Complaint: Ankle/Foot Injury Time Seen by Provider: 11/30/24 02:37 Vital signs: Vital Signs Temperature 98.7 F 11/30/24 02:58 Respiratory Rate 16 11/30/24 02:58 Blood Pressure 110/76 11/30/24 02:58 Pulse Oximetry (%) 100 11/30/24 02:58 Oxygen Delivery Method Room Air 11/30/24 02:58
--- NOTE | 2024-11-30 04:30 | PC.NURSE ---
PT SIGNED AMA FORM FOR REFUSAL OF BLOOD TRANSFUSION. PT STATES THAT SHE KNOWS HER HGB IS LOW AND THAT IT IS USUALLY IN THE 2'S. PT ALREADY HAS APPT IN 2 DAYS WITH PRIMARY TO GET BLOOD WORK AND GET REFERRAL TO CARDIAC TECH. PT JUST WANTS TO BE SEEN FOR VISIT OF RIGHT ANKLE SWELLING. FATHER AT BEDSIDE AND AGREES WITH PATIENT
--- NOTE | 2024-11-30 04:43 | PC.NURSE ---
pt is aware that her hgb is 5.2 she states that it was normal that it is her norm she has an appt in two days and also to see barkeeper, she does not want to stay for blood transfusion pt signed ama form pertaining to blood transfusion only. Pt father is present with pt and involved with ama form, all risk were explained to pt and that she may return if she feels she needs to for blood transfusion, pt declined blood transfusion only.
[2024-11-30 05:04] LABS: C-Reactive Protein 0.7 mg/dL (0.0-0.9); Sed Rate (ESR) 27 mm/hr (0-20)
[2024-11-30 05:41] LABS: Albumin, Serum 2.8 gm/dL (3.5-5.0); Albumin/Globulin Ratio 0.9 (1.2-2.2); Alkaline Phosphatase 61 U/L (46-116); Anion Gap 8 (7-16); Aspartate Amino Transferase 10 U/L (0-34); BUN/Creatinine Ratio 13 Ratio (12-20); Bilirubin,Total 0.3 mg/dL (0.3-1.2); Blood Urea Nitrogen 8 mg/dL (9-23); Calcium 8.2 mg/dL (8.3-10.6); Calcium (Corrected) 9.2 mg/dL (8.5-10.1); Carbon Dioxide 22.0 mMol/L (20.0-31.0); Chloride 109 mMol/L (98-107); Creatinine (Component) 0.6 mg/dL (0.6-1.3); Estimated Creatinine Clearance 96.1 mL/min (>60); Globulin 3.1 gm/dL (2.3-3.5); Glucose 109 mg/dL (74-106); Osmolality,Calculated 276 (275-295); Potassium 4.3 mMol/L (3.4-5.1); Sodium 139 mMol/L (136-145); Total Protein 5.9 gm/dL (5.7-8.2); Uric Acid 5.8 mg/dL (3.1-7.8); eGFR > 60 See Note
[2024-11-30 06:00] LABS: Alanine Aminotransferase < 7 U/L (10-49)
== END 2024-11-30 06:15 | disposition left against medical advice (07) ==
PROVIDERS: Nurse Practitioner Family; Emergency Provider Emergency Medicine
DX: M25.572 Pain in left ankle and joints of left foot (principal); M25.471 Effusion, right ankle; Z53.29 Procedure and treatment not carried out because of patient's decision for other reasons
CPT/HCPCS: 36415; 73600; 80053; 83880; 84550; 85025; 85652; 86140; 99283; A9270

== ENCOUNTER 2024-11-30 14:54 | Emergency (ER) | payer MEDICAID, SELFPAY ==
[2024-11-30] VITALS (10 sets, daily range): BP systolic 97–114; BP diastolic 63–73; PULSE 97–109; RESP 14–20; TEMP 36.6–37.2; O2SAT 99–100
--- NOTE | 2024-11-30 15:47 | EDNOTE_ITS ---
ED General RME/HPI General Chief complaint: Ankle/Foot Injury Stated complaint: R) FOOT SWELLING Time Seen by Provider: 11/30/24 15:41 Arrival date/time: 11/30/24 14:54 CC: Right ankle swelling and pain, anemia HPI patient was seen here last night for right ankle pain and swelling however has a history of significant anemia secondary to heavy menses and diverticulitis for which the patient is being worked up by her SQL SERVER DBA. 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 Patient denies any fatigue chest pain shortness of breath or difficulty breathing. Patient states last time she was here her hemoglobin was 2 . Patient is awake alert oriented complaining of localized pain in the right ankle. Onset of the ankle pain was last night with swelling, is mildly warm to touch no prior history of similar events no pain in the left ankle. Related Data Previous Rx's ?Medication ?Instructions ?Recorded ferrous sulfate 325 mg (65 mg 325 mg PO EVERYOTHERDAY #30 tabs 05/18/24 iron) tablet (iron) norethindrone 1.5 mg-ethinyl 1 tab PO QDAY #84 tabs estradiol 30 mcg(21)/iron 75 mg(7) tablet (Loestrin Fe 1.5/30 (28-Day)) azathioprine 50 mg tablet 50 mg PO DAILY 30 days #30 t abs 11/17/24 famotidine 20 mg tablet 20 mg PO BID 1 month #60 tab s 11/17/24 folic acid 1 mg tablet 1 mg PO QDAY 30 days #30 tab s 11/17/24 sulfasalazine 500 mg tablet 1,000 mg (2 x 500 mg) PO B ID 30 11/17/24 days #120 tabs cephalexin 500 mg capsule 500 mg PO TID #21 caps 11/30 Allergies Allergy/AdvReac Type Severity Reaction Status Date / Time No Known Allergies Allergy Verified 11/30/24 14:57 Review of Systems Review of Systems Narrative Review of Systems: GEN: No fever, no chills, no weight loss EYES: No discharge, no visual changes, no pain HEENT: No ear pain, no congestion, no sore throat PULM: No shortness of breath, no cough, no congestion CV: No chest pain, no dyspnea on exertion, no palpitations GI: No nausea, no vomiting, no diarrhea, no pain, no constipation : No frequency, no urgency, no dysuria MUSC/SKEL: No joint pain, no back pain,+ SKIN: No rash PSYCH: No hallucinations, no depression HEME/LYMPH: No easy bleeding or bruising tendencies NEURO: No weakness, no headache ED Exam Narrative Physical exam: [General: Not in any acute distress Head normocephalic HEENT: Eyes: Pupils are PERRLA EOMs are intact blanched conjunctiva, mouth, pale dry mucous membranes. Swallow symmetrical phonation is normal. All of the subsystems of HEENT are within acceptable limits Neck is supple nontender Chest equal chest rise nontender to palpation Respiratory: Clear to auscultation no wheezes crackles or rubs CV: Rate rhythm is regular no murmurs rubs or clicks Abdomen is soft nontender no masses positive bowel sounds all 4 quadrants Back: No CVA tenderness no spinous process tenderness from cervical spine thoracic and lumbar spine Skin: Pale, intact no petechiae rash induration ulceration or crepitus Extremities: Right ankle has mild edema, there is mild subtle warmth to the skin, no open puncture site or streaking. Subtle erythema. Decreased range of motion secondary to the pain in the ankle. No Achilles heel or dorsum of the foot involvement. Toes cap refills less than 2 seconds neurosensory intact. Sole of the foot is unremarkable. Moving all other extremities against resistance cap refill less than 2 seconds neurosensory intact Neuro: Awake alert oriented x3 Glascow coma 15 no focal deficits] Course Course Course Narrative: I have a low index of suspicion this is actual infectious process. Quality Measures none Orders Category Date Time Status Saline [Insert IV] NOW Care 11/30/24 15:50 Active Transfuse,blood/blood products NOW Care 11/30/24 15:44 Active Antibody Identification Stat Lab 11/30/24 16:45 Results CBC Stat Lab 11/30/24 18:22 Completed CMP [Comprehensive Metabolic Panel] Stat Lab 11/30/24 16:45 Completed CRP [C-Reactive Protein] Stat Lab 11/30/24 16:45 Completed ESR [Sed Rate (ESR)] Stat Lab 11/30/24 18:22 Completed Type and Screen Stat Lab 11/30/24 16:45 Results prbc [Red Blood Cells] Stat Lab 11/30/24 16:45 Results HYDROcodone*/APAP 5/325 [Beyer 5/325] Med 11/30/24 16:50 Discontinued 1 tab PO X1 ONE Vital Signs Vital signs: Vital Signs Temperature 98.5 F 11/30/24 15:22 Pulse Rate 109 H 11/30/24 15:22 Respiratory Rate 20 11/30/24 15:22 Blood Pressure 101/64 11/30/24 15:22 Pulse Oximetry (%) 100 11/30/24 15:22 Oxygen Delivery Method Room Air 11/30/24 15:22 Discharge Plan Plan Patient Disposition: HOME (Self Care) Patient condition on transfer: Stable Prescriptions/Referrals Prescriptions/Med Rec: New cephalexin 500 mg capsule 500 mg PO TID Qty: 21 0RF No Action norethindrone-e.estradiol-iron [Loestrin Fe 1.5/30 (28-Day)] 1.5 mg-30 mcg (21)/75 mg (7) tablet 1 tab PO QDAY Qty: 84 3RF Rx Instructions: Take 1 tablet per day as directed famotidine 20 mg tablet 20 mg PO BID 30 Days Qty: 60 1RF folic acid 1 mg tablet 1 mg PO QDAY 30 Days Qty: 30 0RF azathioprine 50 mg tablet 50 mg PO DAILY 30 Days Qty: 30 0RF sulfasalazine 500 mg tablet 1,000 mg PO BID 30 Days Qty: 120 0RF ferrous sulfate [iron] 325 mg (65 mg iron) Tablet 325 mg PO EVERYOTHERDAY Qty: 30 0RF Referrals: Eran Strange MD [Primary Care Provider] - In 1 week Problem List Clinical Impression: Severe anemia Patient/Caregiver Discharge Instructions Other Activity Instructions:: The swelling in your ankle is likely not an infection however if it becomes red and increased painful start the antibiotics and follow-up with your primary care doctor There is a worsening of symptoms in spite of the medications return the emergency room medially for further evaluation. Make sure to follow-up with your SQL SERVER DBA as well as the GI specialist regarding your chronic anemia. Education Materials: Anemia Print Language: Portuguese Stand Alone Forms: Dinora Award Info., Patient Portal Info Letter, Work/School Release FAITH/SAPNA Supervising Physician BRENDAN Supervising Physician: Min Lewis ENP MDM Clinical Information Provided by patient Medical Records Reviewed [facility] Meds/Rx Considered, not Ordered None Labs/Rad/Tests considered, not Ordered None Chronic Illness/Social Conditions Add or document further as needed: Anemia EKG EKG not done Lab Interpretation Lab(s) interpretation(s): CBC shows white count of 3.2 H&H of 4.6 and 17.0 platelets at 295 no bandemia. ESR 16 CRP at 0.5 CMP shows a chloride of 108 BUN of 6 creatinine of 0.5 no other electrolyte i mbalances renal impairment transaminitis or T. bili elevation. Medication Administration(s) Medication Administration History Discontinued Medications Hydrocodone Bitart/Acetaminophen (Hydrocodone/Apap 5/325 Tablet) 1 tab PO X1 ONE Stop: 11/30/24 16:51 Last Admin: 11/30/24 17:04 Dose: 1 tab Documented By: KEESHA Diagnosis Differential diagnosis: Microcytic anemia, iron deficiency anemia, foot cellulitis Dispositon Disposition: Discharge Home
[2024-11-30] MEDS: HYDROcodone/APAP 5/325 TABLET 1 TAB PO (17:04)
--- NOTE | 2024-11-30 17:12 | PC.NURSE ---
BLOOD TRANSFUSION CONSENT OBTAINED, PATIENT VERBALIZED UNDERSTANDING OF BLOOD TRANSFUSION.
[2024-11-30 17:40] LABS: Alanine Aminotransferase < 7 U/L (10-49); Albumin, Serum 2.9 gm/dL (3.5-5.0); Albumin/Globulin Ratio 0.9 (1.2-2.2); Alkaline Phosphatase 64 U/L (46-116); Anion Gap 10 (7-16); Aspartate Amino Transferase 10 U/L (0-34); BUN/Creatinine Ratio 12 Ratio (12-20); Bilirubin,Total 0.4 mg/dL (0.3-1.2); Blood Urea Nitrogen 6 mg/dL (9-23); C-Reactive Protein 0.5 mg/dL (0.0-0.9); Calcium 8.3 mg/dL (8.3-10.6); Calcium (Corrected) 9.2 mg/dL (8.5-10.1); Carbon Dioxide 22.2 mMol/L (20.0-31.0); Chloride 108 mMol/L (98-107); Creatinine (Component) 0.5 mg/dL (0.6-1.3); Estimated Creatinine Clearance 115.3 mL/min (>60); Globulin 3.2 gm/dL (2.3-3.5); Glucose 77 mg/dL (74-106); Osmolality,Calculated 276 (275-295); Potassium 3.9 mMol/L (3.4-5.1); Sodium 140 mMol/L (136-145); Total Protein 6.1 gm/dL (5.7-8.2); eGFR > 60 See Note
[2024-11-30 18:38] LABS: Basophils # (Auto) 0.0 Thou/mm3 (0.0-0.2); Basophils % (Auto) 0 % (0-2.5); Eosinophils # (Auto) 0.1 Thou/mm3 (0.0-0.5); Eosinophils % (Auto) 2 % (0-10); Immature Granulocytes Auto 0.01 Thou/mm3 (0.00-0.00); Lymphocytes # (Auto) 0.7 Thou/mm3 (1.0-4.8); Lymphocytes % (Auto) 23 % (10-50); Mean Corpuscular HGB Conc 27.1 g/dl (31.0-37.0); Mean Corpuscular Hemoglobin 18.8 pg (25.0-35.0); Mean Corpuscular Volume 69 fL (80-100); Monocytes # (Auto) 0.2 Thou/mm3 (0.0-0.8); Monocytes % (Auto) 7 % (0-12); Neutrophils # (Auto) 2.2 Thou/mm3 (1.8-7.7); Neutrophils % (Auto) 68 % (37-80); Nucleated Red Blood Cell # 0.02 Thou/mm3 (0.00-0.00); Nucleated Red Blood Cell % 1 /100 WBC (0); Platelet Count 295 Thou/mm3 (140-440); RDW Standard Deviation 44.4 fL (36.4-46.3); Red Blood Count 2.45 Miln/mm3 (4.00-5.20); White Blood Count 3.2 Thou/mm3 (3.6-11.0)
[2024-11-30 18:52] LABS: Hematocrit 17.0 % (36.0-46.0); Hemoglobin 4.6 g/dL (12.0-16.0)
[2024-11-30 18:53] LABS: Sed Rate (ESR) 16 mm/hr (0-20)
--- NOTE | 2024-11-30 23:10 | PD.EDADDENDU ---
Emergency Room Addendum Addendum Narrative: 2300: Care assumed from Dr. Wallace (emergency physician). Past medical, surgical, social and family history reviewed. Vitals and home medications reviewed. Results and treatment plan discussed. I will assume the care of the patient at this time and will follow the patient, pending completion of blood transfusion. The following addendum documentation note is intended to reflect any pending information, findings, or radiology results not included in the patient?s initial chart by the previous shift scribe.
[2024-12-01] VITALS (12 sets, daily range): BP systolic 100–112; BP diastolic 64–75; PULSE 90–101; RESP 16–20; TEMP 37–38.4; O2SAT 98–100
--- NOTE | 2024-12-01 02:19 | PC.NURSE ---
ASSUMED CARE OF PATIENT, PT ON 2ND UNIT OF PRBCS, WILL GET 3 UNITS, LASIX AND THEN WILL BE DISCHARGED. PT ALERT AND AWAKE AND IN NO ACUTE DISTRESS. WILL CONTINUE WITH PLAN OF CARE UNTIL DC
--- NOTE | 2024-12-01 02:24 | PC.NURSE ---
MD MADE AWARE THAT PATIENTS TEMPERATURE IS INCREASING, PT HAS NO SYMPTOMS OR NO COMPLAINTS. MD ORDERED TYLENOL
[2024-12-01] MEDS: ACETAMINOPHEN 325 MG TABLET 650 MG PO (02:29)
[2024-12-01] MEDS: FUROSEMIDE INJ 10 MG/ML VIAL 2 ML IVP (04:41)
== END 2024-12-01 04:50 | disposition home or self-care (01) ==
PROVIDERS: Registered Nurse General Practice; Emergency Provider Family Medicine
DX: D50.0 Iron deficiency anemia secondary to blood loss (chronic) (principal)
CPT/HCPCS: 36415; 36430; 80053; 85025; 85652; 86140; 86850; 86870; 86900; 86901; 86902; 86921; 86922; 96374; 99283; J1938; P9016; A9270

== ENCOUNTER 2025-01-28 14:19 | Outpatient (AMB) | payer MEDICAID, SELFPAY ==
[2025-01-28 14:51] VITALS: BP 100/69; PULSE 102; RESP 16; TEMP 36.5; O2SAT 100; BMI 21.0
--- NOTE | 2025-01-28 14:51 | PD.RESCLINIC ---
Vital Signs 01/28/25 14:51 Height 1.5 m Height Method Stated Weight 47.23 kg Weight Measurement Method Standing Scale BMI 21.0 BP 100/69 Blood Pressure Source Automatic Cuff Blood Pressure Location Right Upper Arm Position Sitting Respiration 16 Pulse 102 H Pulse Source Monitor Temp 97.7 F Temp Source Temporal Artery Scan Pulse Oximetry (%) 100 Oxygen Delivery Method Room Air Allergies/Meds Allergies & Medications Allergies No Known Allergies Allergy (Verified 01/28/25 14:52) Medication Reconciliation ferrous sulfate 325 mg (65 mg iron) tablet (iron) 325 mg PO EVERYOTHERDAY #30 tabs 05/18/24 [Rx Confirmed 01/28/25] famotidine 20 mg tablet 20 mg PO BID 1 month #60 tabs 11/17/24 [Rx Confirmed 01/28/25] cephalexin 500 mg capsule 500 mg PO TID #21 caps 11/30/24 [Rx Confirmed 01/28/25] azathioprine 50 mg tablet 50 mg PO QDAY #30 tabs 01/28/25 [Rx] folic acid 1 mg tablet 1 mg PO QDAY #30 tabs 01/28/25 [Rx] hydrocodone 5 mg-acetaminophen 300 mg tablet 1 tab PO Q6H PRN pain #10 tabs 01/28/25 [Rx] norethindrone 1.5 mg-ethinyl estradiol 30 mcg(21)/iron 75 mg(7) tablet (Loestrin Fe 1.5/30 (28-Day)) 1 tab PO QDAY #84 tabs 01/28/25 [Rx] sulfasalazine 500 mg tablet 1,000 mg (2 x 500 mg) PO BID 30 days #120 tabs 01/28/25 [Rx] MA Intake Visit Data Collection New Patient or Established: Established Patient (seen at [facility] within 3 years) Seen by Clinical Staff ONLY (RN/MA): No Pain Present Currently: No Pain scale:: 0 Pain Scale Used: Garcia-Arias/Numerical Director Talent Required: No PCP or OBGYN visit in last 3 months: Yes Hx Now: No Do You Feel Safe at Home: Yes Authorities Contacted: N/A Smoking Status Smoking Status: Current every day smoker Cessation Counseling Provided: TYLOR was advised that quitting smoking is the single most important factor to protect the health of themselves and their family. Discussed the benefits of quitting smoking with patient. Encouraged patient to quit smoking and provided Cessation assistance materials and resources. Tobacco Use: Nicotine Years smoked: 1 Are you interested in quitting?: No Immunization / Flu Flu Vaccine in the Last 12 Months: No Flu Vaccine Exclusion Criteria: No Exclusion Criteria Past Medical History Past Medical History NEUROLOGIC: Negative Neurological Disorders or Seizures CARDIAC: Negative Cardiac Disorders or Congestive Heart Failure RESPIRATORY: Negative Chronic Obstructive Pulmonary Disease (COPD) GASTROINTESTINAL: Negative Gastrointestinal Disorders or Hepatitis GENITOURINARY: Negative Genitourinary Disorders or Renal Disease REPRODUCTIVE: Positive Previous Pregnancies; Negative Endometriosis, Pelvic Inflammatory Disease or Uterine Prolapse ENDOCRINE: Negative Endocrine Disorders, Diabetes Mellitus Type 1 or Diabetes Mellitus Type 2 HEMATOLOGIC: Positive Blood Disorders and Anemia OTHER HISTORY: Positive Hospitalization and Blood Transfusions; Negative Autoimmune Disease, Down Syndrome, Developmental Delay, Shingles, Falls, Blood Transfusion Reaction, Anesthesia Reactions (per pt. never received anesthesia), MRSA, VRSA, Vancomycin-Resistant Enterococci, Human Immunodeficiency Virus (HIV), Chicken Pox, Measles, Mumps, Rubella ([place] Measles), Pertussis, Clostridium Difficile or Cancer Family History FAMILY HISTORY: Positive Family Surgery; Negative Family Psychiatric Problems, Family Respiratory Disorders, Family Cardiac Disorders, Family Gastrointestinal Problems, Family Cancer or Family Anesthesia Reaction Surgical History SURGICAL: Negative Section Social History SMOKING STATUS: Smoking status: Current every day smoker SECOND HAND EXPOSURE: second hand exposure: No ALCOHOL: Alcohol Intake: Never HOUSING: Housing: House LIVES WITH: Lives With: Significant Other Patient Portal Questionaires PHQ-9 PHQ-2 Over the last 2 weeks, how often have you been bothered by any of the following problems? 1. Little interest or pleasure in doing things: not at all 2. Feeling down, depressed, or hopeless: not at all Total score: 0 PHQ-9 3. Trouble falling or staying asleep, or sleeping too much: Not at all 4. Feeling tired or having little energy: Not at all 5. Poor appetite or overeating: Not at all 6. Feeling bad about yourself - or that you are a failure or have let yourself or your family down: Not at all 7. Trouble concentrating on things, such as reading the newspaper or watching television: Not at all 8. Moving or speaking so slowly that other people could have noticed? - Or the opposite - being so fidgety or restless that you have been moving around a lot more than usual: not at all 9. Thoughts that you would be better off or of hurting yourself in some way: Not at all Total score: 0 If you checked off any problems, how difficult have these problems made it for you to do your work, take care of things at home, or get along with other people?: not difficult at all Source: Developed by Drs. Jarocho Lemus, Angela Clark, Aren Garcia and colleagues, with an educational reji from [employer]. Depression screen completed yes Social History Living Situation History Housing: House Tobacco History Smoking Status: Current every day smoker Second Hand Smoke Exposure: No Alcohol History Alcohol Intake: Never Domestic Abuse History Do You Feel Safe at Home: Yes Review of Systems Report any current symptoms Only answer those that you have currently: Past Medical History Past Medical History Have you ever been diagnosed with any of the following: Neurological Problems Seizures: No Cardiology Problems Congestive Heart Failure: No Respiratory Problems Chronic Obstructive Pulmonary Disease (COPD): No Stomache/Intestinal Problems Hepatitis: No Genital/Urinary Problems Renal Disease: No Reproductive Problems Endometriosis: No Pelvic Inflammatory Disease: No Previous Pregnancies: Yes Uterine Prolapse: No Endocrine Problems Diabetes Mellitus Type 1: No Diabetes Mellitus Type 2: No Blood Problems Anemia: Yes Other Problems Hospitalization: Yes Autoimmune Disease: No Down Syndrome: No Developmental Delay: No Shingles: No Falls: No Blood Transfusions: Yes Blood Transfusion Reaction: No Anesthesia Reactions: No (per pt. never received anesthesia) MRSA: No VRSA: No Vancomycin-Resistant Enterococci: No Human Immunodeficiency Virus (HIV): No Chicken Pox: No Measles: No Mumps: No Rubella ([place] Measles): No Pertussis: No Clostridium Difficile: No Cancer: No History of Present Illness HPI Narrative Tylor Rodriguez is a 29-year-old female with past medical history of ulcerative colitis, gastritis, menorrhagia and episodes severe anemia who presents to the [facility] for follow-up. 11/28/2024: States that her bowel movements remain stable at around 3-4 per day and not all of them are bloody, though she does endorse episodes of incontinence and that it does affect her ability to freely drive. During last visit, was also started on OCPs and states did has had two menstrual cycles but both were still photographer than previous menstrual cycles prior to initiating OCPs. CBC also order during last visit and showed hemoglobin of 8, which is also prior to starting OCPs. Thus, will order repeat CBC to further evaluate. Also states she has been losing significant amount of hair. Denies cold intolerance, nail or skin changes. Received letter from Dr. Alejo's office and encouraged patient to contact office to follow-up. At this time, production pattern maker consult still in process but order placed. 01/28/2025: Noted to have gone to the ED soon after previous visit for pain in right lower extremity but was found to have critical hemoglobin of 5.2 and at that time she received 3 units of blood but upon review she may have gotten 2 units. However, per patient she also had antibodies on her type and cross and likely required irradiated blood. Otherwise, she presents today with BP 100/69 and pulse of 102 and states she again feels symptomatic such as fatigue and headaches but no syncopal episodes. She has had two menstrual cycles this month with her latest being since Sunday with heavy flow but believes it may towards its end. Regarding her UC, she continues to be on azathioprine 50 mg daily and sulfasalazine 1 g twice daily with folic acid. Repeat CBC ordered today and showed hemoglobin of 5.0, and called patient and recommended that she go to the ED as soon as possible. An appointment with production pattern maker has been made and scheduled for 02/03/2025. Review of Systems Review of Systems Systems Reviewed: All systems reviewed, normal except as documented Objective/Exam Narrative Physical exam: General: AOx3, no acute distress, able to speak full sentences HEENT: conjunctival pallor; NC/AT, mucous membranes moist Cardiovascular: tachycardic regular rate, S1/S2 present, no murmurs appreciated Pulmonary: clear to auscultation bilaterally, no rales/rhonchi/wheezes Musculoskeletal: delayed capillary refill; normal ROM, no peripheral edema Skin: dry skin, intact, no rashes Assessment & Plan Diagnosis / Problem List (1) Severe anemia: Status: Acute Assessment & Plan: Presented to ED on 11/30/2024 and found to have critical hemoglobin of 5.4 that was treated with 3 units of blood per patient but may have been 2 units per chart review. She has had two menstrual cycles this month with heavy flow but believes it is toward its end. Repeat CBC today showed hemoglobin of 5.0 at which point she was called and recommended to go to the ED as soon as possible. Plan: ? Visit to ED as soon as possible for blood transfusion ? Upcoming appointment with production pattern maker for menorrhagia (2) Ulcerative colitis: Status: Acute Qualifiers: Digestive disease complication type: with rectal bleeding Ulcerative colitis location: ulcerative pancolitis Qualified Code(s): K51.011 - Ulcerative (chronic) pancolitis with rectal bleeding Assessment & Plan: Bowel movements have not changed in that she continues to have at most 4 bowel movements per day and are largely nonbloody at this time on current regimen. Plan: ? Take azathioprine 50 mg once per day ? Take sulfasalazine 1 g twice per day ? Folic acid 1 mg daily ? Referral to GI approved by insurance and sent to Dr. Alejo's office ? Patient states she was sent something by mail by his office and will have to call them (3) Menorrhagia: Status: Acute Qualifiers: Menorrhagia type: with onset of menstrual periods Qualified Code(s): N92.2 - Excessive menstruation at puberty Assessment & Plan: Given hair loss, dry skin, and abnormal menstrual cycles will order baseline TSH and consider FSH/LH during next visit. Plan: ? Follow-up TSH ? cello teacher appointment on 02/03 (4) Contraception management: Status: Acute Qualifiers: Contraceptive encounter type: initial prescription Contraceptive type: pill Qualified Code(s): Z30.011 - Encounter for initial prescription of contraceptive pills Assessment & Plan: States that she is interested in contraception with possibility of becoming in the future. She is not interested in IUDs or subdermal patch, which would likely be most beneficial for her given her history of menorrhagia. However, we will start with low-dose estrogen oral contraceptive pills with some iron supplementation and see how patient tolerates. Counseled on importance of maintaining strict regimen with pills and patient is willing to adhere to regimen. Plan: ? Loestrin Fe contraceptive pills Orders: Orders CBC Today D64.9 - Anemia, unspecified Referrals Gastroenterology K51.011 - Ulcerative (chronic) pancolitis with rectal bleeding Office Procedures [facility] Level of Care Nursing/Assessment Patient Status: Established Patient Nursing Assessment/Reassessment: Medication Reconciliation, Update PMH in EMR and Vital Signs Coordination of Care: Complex Care and Chronic Disease 1-5, Complex Care/Chronic Disease 5 or more, Consent,records obtained, informed consent, Lab and Imaging orders, Results/Orders obtained and Staff clarify orders Established Patient Charge Established Patient Point Assignment: 125 Established Patient Point Charge: EP Level 4 (120-155) TB Screening LTBI Screening: Has patient traveled, was born, or resided for at least 1 month, or frequent border crossing into a country with an elevated TB rate: No Immunosuppression, current or planned (HIV, organ transplant, treated with biologic agents, steroids, or other immunosuppression medication): No Close contact to someone with infectious TB disease during lifetime: No Homelessness or incarceration, current or past: No TB testing indicated at this time (at least 1 yes above): No
== END 2025-01-28 15:53 | disposition home or self-care (01) ==
LOC: HODAHC 14:19
PROVIDERS: Supervising Provider Internal Medicine
DX: D64.9 Anemia, unspecified (principal); M79.604 Pain in right leg; K51.90 Ulcerative colitis, unspecified, without complications; N92.0 Excessive and frequent menstruation with regular cycle
CPT/HCPCS: 99214; G0463

== ENCOUNTER → 2025-01-28 | Outpatient (CLI) | payer SELFPAY ==
[2025-01-28 17:42] LABS: Basophils # (Auto) 0.0 Thou/mm3 (0.0-0.2); Basophils % (Auto) 0 % (0-2.5); Eosinophils # (Auto) 0.0 Thou/mm3 (0.0-0.5); Eosinophils % (Auto) 1 % (0-10); Immature Granulocytes Auto 0.03 Thou/mm3 (0.00-0.00); Lymphocytes # (Auto) 1.3 Thou/mm3 (1.0-4.8); Lymphocytes % (Auto) 29 % (10-50); Mean Corpuscular HGB Conc 28.4 g/dl (31.0-37.0); Mean Corpuscular Hemoglobin 20.7 pg (25.0-35.0); Mean Corpuscular Volume 73 fL (80-100); Monocytes # (Auto) 0.3 Thou/mm3 (0.0-0.8); Monocytes % (Auto) 6 % (0-12); Neutrophils # (Auto) 3.0 Thou/mm3 (1.8-7.7); Neutrophils % (Auto) 63 % (37-80); Nucleated Red Blood Cell # 0.02 Thou/mm3 (0.00-0.00); Nucleated Red Blood Cell % 0 /100 WBC (0); Platelet Count 342 Thou/mm3 (140-440); RDW Standard Deviation 46.7 fL (36.4-46.3); Red Blood Count 2.41 Miln/mm3 (4.00-5.20); White Blood Count 4.7 Thou/mm3 (3.6-11.0)
[2025-01-28 17:50] LABS: Hematocrit 17.6 % (36.0-46.0)
[2025-01-28 17:55] LABS: Hemoglobin 5.0 g/dL (12.0-16.0)
== END | disposition home or self-care (01) ==
LOC: COPL 16:50
DX: D64.9 Anemia, unspecified (principal)
CPT/HCPCS: 36415; 85025

== ENCOUNTER 2025-01-29 08:25 | Emergency (ER) | payer MEDICAID, SELFPAY ==
[2025-01-29] VITALS (14 sets, daily range): BP systolic 91–120; BP diastolic 55–78; PULSE 88–114; RESP 13–20; TEMP 36.6–37.7; O2SAT 95–100; BMI 21.2
--- NOTE | 2025-01-29 08:39 | EDNOTE_ITS ---
ED OB Contraction Preg RMI/HPI General Chief complaint: Recheck/Abnormal Lab/Rx Stated complaint: HGB 5 Time Seen by Provider: 01/29/25 08:27 Arrival date/time: 01/29/25 08:25 RME / HPI RME / HPI Narrative: See [facility] for Dr. Mckenna's HPI documentation. Related Data Previous Rx's ?Medication ?Instructions ?Recorded ferrous sulfate 325 mg (65 mg 325 mg PO EVERYOTHERDAY #30 tabs 05/18/24 iron) tablet (iron) famotidine 20 mg tablet 20 mg PO BID 1 month #60 tab s 11/17/24 cephalexin 500 mg capsule 500 mg PO TID #21 caps 11/30 azathioprine 50 mg tablet 50 mg PO QDAY #30 tabs 01/28 folic acid 1 mg tablet 1 mg PO QDAY #30 tabs hydrocodone 5 mg-acetaminophen 300 1 tab PO Q6H PRN pa in #10 tabs 01/28/25 mg tablet norethindrone 1.5 mg-ethinyl 1 tab PO QDAY #84 tabs estradiol 30 mcg(21)/iron 75 mg(7) tablet (Loestrin Fe 1.5/30 (28-Day)) sulfasalazine 500 mg tablet 1,000 mg (2 x 500 mg) PO B ID 30 01/28/25 days #120 tabs cefdinir 300 mg capsule 300 mg PO BID #14 caps 01/29 Allergies Allergy/AdvReac Type Severity Reaction Status Date / Time No Known Allergies Allergy Verified 01/29/25 08:31 Review of Systems Review of Systems Systems Reviewed: All systems reviewed, normal except as documented Past Medical History Past Medical History REPRODUCTIVE: Positive Previous Pregnancies HEMATOLOGIC: Positive Blood Disorders and Anemia OTHER HISTORY: Positive Hospitalization and Blood Transfusions Family History FAMILY HISTORY: Positive Family Surgery Surgical History SURGICAL: Negative Section Social History SMOKING STATUS: Current every day smoker SECOND HAND EXPOSURE: No ED Exam Narrative Physical exam: See [facility] for Dr. Mckenna's physical exam documentation. Course Quality Measures none Orders Category Date Time Status Saline [Insert IV] NOW Care 01/29/25 08:39 Completed Transfuse,blood/blood products NOW Care 01/29/25 08:40 Completed Antibody Identification Stat Lab 01/29/25 09:04 Completed Bilirubin,Direct Stat Lab 01/29/25 09:04 Completed CBC Stat Lab 01/29/25 09:04 Completed CMP [Comprehensive Metabolic Panel] Stat Lab 01/29/25 09:04 Completed HCG,Qualitative Serum Stat Lab 01/29/25 09:04 Completed Hgb and Hct Post-Transfusion Stat Lab 01/29/25 17:07 Completed Magnesium Stat Lab 01/29/25 09:04 Completed PT [Prothrombin Time with INR] Stat Lab 01/29/25 09:04 Completed PTT [Partial Thromboplastin Time] Stat Lab 01/29/25 09:04 Completed TSH [Thyroid Stimulating Hormone] Stat Lab 01/29/25 09:04 Completed Troponin I Stat Lab 01/29/25 09:04 Completed Type and Screen Stat Lab 01/29/25 09:04 Completed UA, C/S IF [Urinalysis, C/S if Indicated] Stat Lab 01/29/25 09:29 Completed Urine Culture Stat Lab 01/29/25 09:29 Received prbc [Red Blood Cells] Stat Lab 01/29/25 09:04 Completed Sodium Chloride 0.9% 1000 ml [Ns] 1,000 ml Med 01/29/25 08:39 Discontinued IV 999 mls/hr cefTRIAXone/D5w 1gm IV premix [Rocephin/D5w 1gm IV Med 01/29/25 11:31 Discontinued premix] 1 gm in 50 ml IV X1 Vital Signs Vital signs: Vital Signs Temperature 98.3 F 01/29/25 08:30 Pulse Rate 114 H 01/29/25 08:30 Respiratory Rate 17 01/29/25 08:30 Blood Pressure 110/78 01/29/25 08:30 Pulse Oximetry (%) 98 01/29/25 08:30 Oxygen Delivery Method Room Air 01/29/25 08:30 Pulse ox is 98% on room air which is adequate. Vaginal Bleeding MDM Narrative MDM Narrative: This section includes all my notes and documentations, including HPI, PE, and ED course. Bret Mckenna MD HPI: 29-year-old female here with months of heavier and more frequent and longer me nstruations. Needing blood transfusion periodically. Recent GI workup, including colonoscopy, showed colitis. ROS: All negative except as documented in HPI. Physical Exam: General: Alert and oriented. Appearance of malaise noted with diffuse pallor. Eyes: Conjunctivae and lids clear. ENT: No nasal congestion. Neck: Supple. Heart: RRR. Lungs: No respiratory distress. Good air movement. No rhonchi, wheezing, rales. Abdomen: Soft and nontender. Normal bowel sounds. No distension. No rebound or guarding. Back: No CVA tenderness. Skin: Warm and dry. Neuro: Alert and oriented X3. I reviewed all diagnostic test results: Blood/urine tests remarkable for Hgb 4.7 and UTI. At this point, diagnoses include: Severe anemia UTI Treatment here included: IV fluid Rocephin 1 gram IV PRBC transfusion Significant improvement noted. Recommended more outpatient care. Based on my best medical judgment, made decision no further evaluation or treatment indicated at this time. Patient understands and agrees to the discharge instructions customized and printed, see below. Discharge Instructions from Dr. Mckenna printed for you: 1. You were given 2 units of blood for severe anemia. 2. Your body needs iron to make new red blood cells. So increase food rich in iron. Such as red meat and egg yolks and seaweed. Cefdinir for UTI. 3. Continue to work with your private doctors to find the cause/treatment. Ask for a referral to see blood specialist doctor (digital marketing strategist). 4. Seek immediate medical care with worsening or with any concerns. Bret Mckenna MD Patient data External records reviewed:: [facility] previous records Clinical information provided by:: patient Social determinants that could affect healthcare access:: none Patient has the following chronic illnesses:: Anemia How is presenting disease/condition affected by chronic disease/condition?: exacerbated by Evaluation data The following diagnostics were reviewed and interpreted by me:: lab results Lab and/or radiology exams considered but not ordered:: None Interpretation Summary: I reviewed all diagnostic test results: Blood/urine tests remarkable for Hgb 4.7 and UTI. Medications / Prescriptions Medications or Prescriptions considered but not ordered:: None Medication administrations:: Medication Administration History Discontinued Medications Sodium Chloride (Ns) 1,000 mls @ 999 mls/hr IV .Q1H1M ONE Stop: 01/29/25 09:39 Last Admin: 01/29/25 11:38 Dose: 999 mls/hr Documented By: BY Ceftriaxone Sodium/Dextrose (Rocephin/D5w 1gm Iv Premix) 1 gm in 50 mls @ 100 mls/hr IV X1 ONE Stop: 01/29/25 12:00 Last Admin: 01/29/25 11:40 Dose: 100 mls/hr Documented By: BY Treatment here included: IV fluid Rocephin 1 gram IV PRBC transfusion Consultations Consultation(s) initiated? (list below): No Diagnosis Vaginal Bleeding Differential Diagnosis: dysfunctional uterine bleeding, menometrorrhagia and vaginal bleeding Most likely diagnosis given after review of the tests above:: Severe anemia UTI Admission Indicated Admission indicated?: not indicated Explain why admission is indicated or not indicated:: With significant improvement and no condition needing emergent intervention, there was no indication for admission. Admission Request Was there a request for admission?: No Disposition Plan Disposition Plan: Discharge Discharge Attestation Discharge Attestation: The patient and all family members were given an opportunity to ask questions and understood the discharge instructions. Discharge instructions specifically effects, indications for sooner follow up or return to the emergency department, and the expected course of current diagnosis. Patient condition: Stable Discharge Plan Plan Patient Disposition: HOME (Self Care) Prescriptions/Referrals Prescriptions/Med Rec: New cefdinir 300 mg capsule 300 mg PO BID Qty: 14 0RF No Action norethindrone-e.estradiol-iron [Loestrin Fe 1.5/30 (28-Day)] 1.5 mg-30 mcg (21)/75 mg (7) tablet 1 tab PO QDAY Qty: 84 3RF Rx Instructions: Take 1 tablet per day as directed folic acid 1 mg tablet 1 mg PO QDAY Qty: 30 3RF azathioprine 50 mg tablet 50 mg PO QDAY Qty: 30 3RF sulfasalazine 500 mg tablet 1,000 mg PO BID 30 Days Qty: 120 3RF Rx Instructions: give with food (meal/snack) hydrocodone-acetaminophen 5-300 mg tablet 1 tab PO Q6H MDD 4 PRN (Reason: pain) Qty: 10 0RF famotidine 20 mg tablet 20 mg PO BID 30 Days Qty: 60 1RF ferrous sulfate [iron] 325 mg (65 mg iron) Tablet 325 mg PO EVERYOTHERDAY Qty: 30 0RF cephalexin 500 mg capsule 500 mg PO TID Qty: 21 0RF Referrals: Eran Strange MD [Primary Care Provider, Internal Medicine] - In 1 week Problem List Clinical Impression: Severe anemia, UTI (urinary tract infection) Patient/Caregiver Discharge Instructions Discharge Activity: activity as tolerated Education Materials: ED Anemia Type Not Specified, ED CYSTITIS Female Adult Additional Instructions: Discharge Instructions from Dr. Mckenna printed for you: 1. You were given 2 units of blood for severe anemia. 2. Your body needs iron to make new red blood cells. So increase food rich in iron. Such as red meat and egg yolks and seaweed. Cefdinir for UTI. 3. Continue to work with your private doctors to find the cause/treatment. Ask for a referral to see blood specialist doctor (digital marketing strategist). 4. Seek immediate medical care with worsening or with any concerns. Print Language: Norwegian Stand Alone Forms: [employer] Award Info., Patient Portal Info Letter
[2025-01-29 09:44] LABS: Collection Type, Urine Clean Catch
[2025-01-29 09:46] LABS: Basophils # (Auto) 0.0 Thou/mm3 (0.0-0.2); Basophils % (Auto) 1 % (0-2.5); Eosinophils # (Auto) 0.1 Thou/mm3 (0.0-0.5); Eosinophils % (Auto) 2 % (0-10); Immature Granulocytes Auto 0.03 Thou/mm3 (0.00-0.00); Lymphocytes # (Auto) 0.9 Thou/mm3 (1.0-4.8); Lymphocytes % (Auto) 23 % (10-50); Mean Corpuscular HGB Conc 27.8 g/dl (31.0-37.0); Mean Corpuscular Hemoglobin 20.7 pg (25.0-35.0); Mean Corpuscular Volume 74 fL (80-100); Monocytes # (Auto) 0.2 Thou/mm3 (0.0-0.8); Monocytes % (Auto) 6 % (0-12); Neutrophils # (Auto) 2.7 Thou/mm3 (1.8-7.7); Neutrophils % (Auto) 69 % (37-80); Nucleated Red Blood Cell # 0.00 Thou/mm3 (0.00-0.00); Nucleated Red Blood Cell % 0 /100 WBC (0); Platelet Count 319 Thou/mm3 (140-440); RDW Standard Deviation 47.7 fL (36.4-46.3); Red Blood Count 2.27 Miln/mm3 (4.00-5.20); White Blood Count 4.0 Thou/mm3 (3.6-11.0)
[2025-01-29 09:55] LABS: Hematocrit 16.9 % (36.0-46.0); Hemoglobin 4.7 g/dL (12.0-16.0)
[2025-01-29 10:00] LABS: HCG,Qualitative Serum Negative
[2025-01-29 10:10] LABS: INR 1.1 (0.9-1.3); Partial Thromboplastin Time 24.5 Seconds (22.0-36.0); Prothrombin Time 11.2 Seconds (9.0-12.2)
[2025-01-29 10:12] LABS: Albumin, Serum 1.8 gm/dL (3.5-5.0); Albumin/Globulin Ratio 0.6 (1.2-2.2); Alkaline Phosphatase 102 U/L (46-116); Anion Gap 7 (7-16); Aspartate Amino Transferase 13 U/L (0-34); BUN/Creatinine Ratio 17 Ratio (12-20); Bilirubin,Direct < 0.1 mg/dL (0.0-0.3); Bilirubin,Total 0.2 mg/dL (0.3-1.2); Blood Urea Nitrogen 10 mg/dL (9-23); Calcium 6.9 mg/dL (8.3-10.6); Calcium (Corrected) 8.7 mg/dL (8.5-10.1); Carbon Dioxide 23.9 mMol/L (20.0-31.0); Chloride 108 mMol/L (98-107); Creatinine (Component) 0.6 mg/dL (0.6-1.3); Estimated Creatinine Clearance 96.1 mL/min (>60); Globulin 3.1 gm/dL (2.3-3.5); Glucose 106 mg/dL (74-106); Magnesium 1.8 mg/dL (1.6-2.6); Osmolality,Calculated 276 (275-295); Potassium 4.2 mMol/L (3.4-5.1); Sodium 139 mMol/L (136-145); Thyroid Stimulating Hormone 4.39 uIU/mL (0.55-4.78); Total Protein 4.9 gm/dL (5.7-8.2); Troponin I < 0.002 ng/mL (0.0-0.045); eGFR > 60 See Note
[2025-01-29 10:12] LABS: Bilirubin,Urine Negative (Negative); Blood,Urine 3+ (Negative); Color,Urine Yellow (Lt Yel-Yel); Glucose, Urine Negative (Negative); Ketones,Urine Negative (Negative); Leukocyte Esterase,Urine Positive (Negative); Nitrite,Urine Negative (Negative); PH,Urine 6.5 (5.0-7.0); Protein,Urine 1+ (Neg - Trace); RBC,Urine 404 /hpf (0-3); Specific Gravity,Urine 1.031 (1.001-1.035); Squamous Epithelial Cell,Urine 2 /hpf (0-5); Urobilinogen,Urine 2.0 mg/dL (0.0-1.0); WBC,Urine 435 /hpf (0-5)
[2025-01-29 10:18] LABS: Clarity,Urine Hazy (Clear/Hazy); Culture Indicated,Urine Yes
[2025-01-29 10:22] LABS: Alanine Aminotransferase < 7 U/L (10-49)
[2025-01-29] MEDS: SODIUM CHLORIDE 0.9% 1000 ML 1,000 ML 999 ML IV (11:38)
[2025-01-29] MEDS: cefTRIAXone/D5w 1gm IV premix 1 GM/50 ML BAG IV (11:40)
[2025-01-29 17:16] LABS: Hematocrit 27.5 % (36.0-46.0)
[2025-01-29 17:57] LABS: Hemoglobin 8.5 g/dL (12.0-16.0)
== END 2025-01-29 17:20 | disposition home or self-care (01) ==
PROVIDERS: Emergency Provider Emergency Medicine
DX: N39.0 Urinary tract infection, site not specified (principal); D64.9 Anemia, unspecified; N91.2 Amenorrhea, unspecified
CPT/HCPCS: 36415; 80053; 81001; 82248; 83735; 84443; 84484; 84703; 85014; 85018; 85025; 85610; 85730; 86850; 86870; 86900; 86901; 86902; 86921; 86922; 87086; 99283; J0696; J7030; P9016

== ENCOUNTER 2025-02-06 14:03 | Outpatient (AMB) | payer MEDICAID, SELFPAY ==
[2025-02-06 14:20] VITALS: BP 93/60; PULSE 112; RESP 18; TEMP 36.6; O2SAT 99; BMI 19.7
--- NOTE | 2025-02-06 14:20 | PD.RESCLINIC ---
Vital Signs 02/06/25 14:20 Height 1.5 m Height Method Stated Weight 44.225 kg Weight Measurement Method Standing Scale BMI 19.7 BP 93/60 Blood Pressure Source Automatic Cuff Blood Pressure Location Right Upper Arm Position Sitting Respiration 18 Pulse 112 H Pulse Source Monitor Temp 97.8 F Temp Source Temporal Artery Scan Pulse Oximetry (%) 99 Oxygen Delivery Method Room Air Allergies/Meds Allergies & Medications Allergies No Known Allergies Allergy (Verified 02/06/25 14:22) Medication Reconciliation ferrous sulfate 325 mg (65 mg iron) tablet (iron) 325 mg PO EVERYOTHERDAY #30 tabs 05/18/24 [Rx Confirmed 02/06/25] famotidine 20 mg tablet 20 mg PO BID 1 month #60 tabs 11/17/24 [Rx Confirmed 02/06/25] cephalexin 500 mg capsule 500 mg PO TID #21 caps 11/30/24 [Rx Confirmed 02/06/25] azathioprine 50 mg tablet 50 mg PO QDAY #30 tabs 01/28/25 [Rx Confirmed 02/06/25] folic acid 1 mg tablet 1 mg PO QDAY #30 tabs 01/28/25 [Rx Confirmed 02/06/25] hydrocodone 5 mg-acetaminophen 300 mg tablet 1 tab PO Q6H PRN pain #10 tabs 01/28/25 [Rx Confirmed 02/06/25] norethindrone 1.5 mg-ethinyl estradiol 30 mcg(21)/iron 75 mg(7) tablet (Loestrin Fe 1.5/30 (28-Day)) 1 tab PO QDAY #84 tabs 01/28/25 [Rx Confirmed 02/06/25] sulfasalazine 500 mg tablet 1,000 mg (2 x 500 mg) PO BID 30 days #120 tabs 01/28/25 [Rx Confirmed 02/06/25] cefdinir 300 mg capsule 300 mg PO BID #14 caps 01/29/25 [Rx Confirmed 02/06/25] sumatriptan succinate 100 mg tablet (Imitrex) 100 mg PO Q2H PRN migraine headache #9 tabs 02/06/25 [Rx] MA Intake Visit Data Collection New Patient or Established: Established Patient (seen at [facility] within 3 years) Pain Present Currently: No Pain scale:: 0 Pain Scale Used: [employer] Machine Tender Required: No PCP or OBGYN visit in last 3 months: Yes Hx Now: No Do You Feel Safe at Home: Yes Authorities Contacted: N/A Smoking Status Smoking Status: Current every day smoker Cessation Counseling Provided: TYLOR was advised that quitting smoking is the single most important factor to protect the health of themselves and their family. Discussed the benefits of quitting smoking with patient. Encouraged patient to quit smoking and provided Cessation assistance materials and resources. Tobacco Use: Vapor Cigarette Years smoked: 1 Are you interested in quitting?: No Would you like additional Smoking Cessation Counseling?: No Immunization / Flu Flu Vaccine in the Last 12 Months: No Flu Vaccine Exclusion Criteria: No Exclusion Criteria Past Medical History Past Medical History NEUROLOGIC: Negative Neurological Disorders or Seizures CARDIAC: Negative Cardiac Disorders or Congestive Heart Failure RESPIRATORY: Negative Chronic Obstructive Pulmonary Disease (COPD) GASTROINTESTINAL: Negative Gastrointestinal Disorders or Hepatitis GENITOURINARY: Negative Genitourinary Disorders or Renal Disease REPRODUCTIVE: Positive Previous Pregnancies; Negative Endometriosis, Pelvic Inflammatory Disease or Uterine Prolapse ENDOCRINE: Negative Endocrine Disorders, Diabetes Mellitus Type 1 or Diabetes Mellitus Type 2 HEMATOLOGIC: Positive Blood Disorders and Anemia OTHER HISTORY: Positive Hospitalization and Blood Transfusions; Negative Autoimmune Disease, Down Syndrome, Developmental Delay, Shingles, Falls, Blood Transfusion Reaction, Anesthesia Reactions (per pt. never received anesthesia), MRSA, VRSA, Vancomycin-Resistant Enterococci, Human Immunodeficiency Virus (HIV), Chicken Pox, Measles, Mumps, Rubella (Sing[place]an Measles), Pertussis, Clostridium Difficile or Cancer Family History FAMILY HISTORY: Positive Family Surgery; Negative Family Psychiatric Problems, Family Respiratory Disorders, Family Cardiac Disorders, Family Gastrointestinal Problems, Family Cancer or Family Anesthesia Reaction Surgical History SURGICAL: Negative Section Social History SMOKING STATUS: Smoking status: Current every day smoker SECOND HAND EXPOSURE: second hand exposure: No ALCOHOL: Alcohol Intake: Never HOUSING: Housing: House LIVES WITH: Lives With: Significant Other Patient Portal Questionaires PHQ-9 PHQ-2 Over the last 2 weeks, how often have you been bothered by any of the following problems? 1. Little interest or pleasure in doing things: not at all 2. Feeling down, depressed, or hopeless: not at all Total score: 0 PHQ-9 3. Trouble falling or staying asleep, or sleeping too much: Not at all 4. Feeling tired or having little energy: Not at all 5. Poor appetite or overeating: Not at all 6. Feeling bad about yourself - or that you are a failure or have let yourself or your family down: Not at all 7. Trouble concentrating on things, such as reading the newspaper or watching television: Not at all 8. Moving or speaking so slowly that other people could have noticed? - Or the opposite - being so fidgety or restless that you have been moving around a lot more than usual: not at all 9. Thoughts that you would be better off or of hurting yourself in some way: Not at all Total score: 0 If you checked off any problems, how difficult have these problems made it for you to do your work, take care of things at home, or get along with other people?: not difficult at all Source: Developed by Drs. Jarocho Lemus, Angela Clark, Aren Garcia and colleagues, with an educational reji from [place]. Social History Living Situation History Housing: House Tobacco History Smoking Status: Current every day smoker Second Hand Smoke Exposure: No Alcohol History Alcohol Intake: Never Domestic Abuse History Do You Feel Safe at Home: Yes Review of Systems Report any current symptoms Only answer those that you have currently: Past Medical History Past Medical History Have you ever been diagnosed with any of the following: Neurological Problems Seizures: No Cardiology Problems Congestive Heart Failure: No Respiratory Problems Chronic Obstructive Pulmonary Disease (COPD): No Stomache/Intestinal Problems Hepatitis: No Genital/Urinary Problems Renal Disease: No Reproductive Problems Endometriosis: No Pelvic Inflammatory Disease: No Previous Pregnancies: Yes Uterine Prolapse: No Endocrine Problems Diabetes Mellitus Type 1: No Diabetes Mellitus Type 2: No Blood Problems Anemia: Yes Other Problems Hospitalization: Yes Autoimmune Disease: No Down Syndrome: No Developmental Delay: No Shingles: No Falls: No Blood Transfusions: Yes Blood Transfusion Reaction: No Anesthesia Reactions: No (per pt. never received anesthesia) MRSA: No VRSA: No Vancomycin-Resistant Enterococci: No Human Immunodeficiency Virus (HIV): No Chicken Pox: No Measles: No Mumps: No Rubella (Singaporean Measles): No Pertussis: No Clostridium Difficile: No Cancer: No History of Present Illness HPI Narrative Tylor Rodriguez is a 29-year-old female with past medical history of ulcerative colitis, gastritis, menorrhagia and episodes severe anemia who presents to the [facility] for follow-up. 11/28/2024: States that her bowel movements remain stable at around 3-4 per day and not all of them are bloody, though she does endorse episodes of incontinence and that it does affect her ability to freely drive. During last visit, was also started on OCPs and states did has had two menstrual cycles but both were professor of german than previous menstrual cycles prior to initiating OCPs. CBC also order during last visit and showed hemoglobin of 8, which is also prior to starting OCPs. Thus, will order repeat CBC to further evaluate. Also states she has been losing significant amount of hair. Denies cold intolerance, nail or skin changes. Received letter from Dr. Alejo's office and encouraged patient to contact office to follow-up. At this time, truck service manager consult still in process but order placed. 01/28/2025: Noted to have gone to the ED soon after previous visit for pain in right lower extremity but was found to have critical hemoglobin of 5.2 and at that time she received 3 units of blood but upon review she may have gotten 2 units. However, per patient she also had antibodies on her type and cross and likely required irradiated blood. Otherwise, she presents today with BP 100/69 and pulse of 102 and states she again feels symptomatic such as fatigue and headaches but no syncopal episodes. She has had two menstrual cycles this month with her latest being since Sunday with heavy flow but believes it may towards its end. Regarding her UC, she continues to be on azathioprine 50 mg daily and sulfasalazine 1 g twice daily with folic acid. Repeat CBC ordered today and showed hemoglobin of 5.0, and called patient and recommended that she go to the ED as soon as possible. An appointment with truck service manager has been made and scheduled for 02/03/2025. 02/06/2025: Went to ED on 01/29/2025 and was transfused 2 units PRBC with repeat H&H of 8.5 from 4.7. Since being discharged she states that she feels much better as she is no longer fatigued and headaches have also improved and frequency. [employer]ELT SUGAR BOILER appointment on 02/03 had to be canceled and office staff will call patient on Sunday, 02/09. She is no longer menstruating given repeat acute blood loss episodes, will start to obtain monthly H&H and schedule blood transfusions as needed depending on [facility]. Attempted to give depo progresterone injection but unable to as will need to be under [employer] BOILER. Ordered sumatriptan as she describes headaches as pulsating, lasts hours, bilateral, and can be exacerbated with lights. Tachycardia and slightly soft blood pressures noted in clinic (112, 93/60 respectively) and strict ED precautions if symptoms should arise prior to next H&H (02/27/2025). Review of Systems Review of Systems Systems Reviewed: All systems reviewed, normal except as documented Objective/Exam Narrative Physical exam: General: AOx3, no acute distress, able to speak full sentences HEENT: conjunctival pallor improved from prior; NC/AT, mucous membranes moist Cardiovascular: tachycardic regular rate, S1/S2 present, no murmurs appreciated Pulmonary: clear to auscultation bilaterally, no rales/rhonchi/wheezes Musculoskeletal: delayed capillary refill; normal ROM, no peripheral edema Skin: dry skin, intact, no rashes Assessment & Plan Diagnosis / Problem List (1) Menorrhagia: Status: Acute Qualifiers: Menorrhagia type: with onset of menstrual periods Qualified Code(s): N92.2 - Excessive menstruation at puberty Assessment & Plan: History of acute blood loss anemia that is most likely secondary to menorrhagia vs ulcerative colitis. Her UC symptoms are mild in nature and have improved with current regimen. Menorrhagia began after having her second child and continues to have episodes of anemia requiring multiple units of pRBCs. José Luis REMELT SUGAR BOILER referral at this time. Plan: ? Monthly CBC ? Strict ED precautions if symptoms arise ? suspension cord tier appointment previously on 02/03 but cancelled, will received call from office on Sunday, 02/09 (2) Ulcerative colitis: Status: Acute Qualifiers: Digestive disease complication type: with rectal bleeding Ulcerative colitis location: ulcerative pancolitis Qualified Code(s): K51.011 - Ulcerative (chronic) pancolitis with rectal bleeding Assessment & Plan: Bowel movements have not changed in that she continues to have at most 4 bowel movements per day and are largely nonbloody at this time on current regimen. Plan: ? Take azathioprine 50 mg once per day ? Take sulfasalazine 1 g twice per day ? Folic acid 1 mg daily ? Referral to GI approved by insurance and sent to Dr. Alejo's office ? Patient states she was sent something by mail by his office and will have to call them (3) Contraception management: Status: Acute Qualifiers: Contraceptive encounter type: initial prescription Contraceptive type: pill Qualified Code(s): Z30.011 - Encounter for initial prescription of contraceptive pills Assessment & Plan: States that she is interested in contraception with possibility of becoming in the future. She is not interested in IUDs or subdermal patch, which would likely be most beneficial for her given her history of menorrhagia. However, we will start with low-dose estrogen oral contraceptive pills with some iron supplementation and see how patient tolerates. Counseled on importance of maintaining strict regimen with pills and patient is willing to adhere to regimen. Plan: ? Loestrin Fe contraceptive pills (4) Migraine: Status: Acute Qualifiers: Intractability: not intractable Migraine type: unspecified Status migrainosus presence: without status migrainosus Qualified Code(s): G43.909 - Migraine, unspecified, not intractable, without status migrainosus Assessment & Plan: Endorses bilateral, throbbing headaches that last for hours and exacerbated with lights. Will start trial of sumatriptan and monitor for improvement. Plan: ? Sumatriptan 100 mg as needed ? No more than 2 pills per 24 hours ? No more than 9 pills per month Orders: Orders Hemoglobin and Hematocrit 02/27/25 N92.2 - Excessive menstruation at puberty
== END 2025-02-06 15:12 | disposition home or self-care (01) ==
LOC: HODAHC 14:03
PROVIDERS: Supervising Provider Internal Medicine
DX: N92.0 Excessive and frequent menstruation with regular cycle (principal); K51.00 Ulcerative (chronic) pancolitis without complications; Z30.011 Encounter for initial prescription of contraceptive pills; G43.909 Migraine, unspecified, not intractable, without status migrainosus
CPT/HCPCS: 99213; G0463

== ENCOUNTER 2025-03-14 09:59 | Emergency (ER) | payer MEDICAID, SELFPAY ==
[2025-03-14] VITALS (21 sets, daily range): BP systolic 94–113; BP diastolic 61–86; PULSE 82–115; RESP 13–25; TEMP 36.6–37.4; O2SAT 97–100; BMI 20.2
--- NOTE | 2025-03-14 10:00 | PC.NURSE ---
CHARGE NURSE RICK MADE AWARE PT NEEDING BED FOR LOW HGB OF 4.4; PER RICK AREVALO, WILL LOOK FOR A BED FOR PT.
[2025-03-14 11:31] LABS: Basophils # (Auto) 0.0 Thou/mm3 (0.0-0.2); Basophils % (Auto) 0 % (0-2.5); Eosinophils # (Auto) 0.0 Thou/mm3 (0.0-0.5); Eosinophils % (Auto) 1 % (0-10); Immature Granulocytes Auto 0.02 Thou/mm3 (0.00-0.00); Lymphocytes # (Auto) 0.7 Thou/mm3 (1.0-4.8); Lymphocytes % (Auto) 19 % (10-50); Mean Corpuscular HGB Conc 27.5 g/dl (31.0-37.0); Mean Corpuscular Hemoglobin 20.8 pg (25.0-35.0); Mean Corpuscular Volume 76 fL (80-100); Monocytes # (Auto) 0.3 Thou/mm3 (0.0-0.8); Monocytes % (Auto) 7 % (0-12); Neutrophils # (Auto) 2.8 Thou/mm3 (1.8-7.7); Neutrophils % (Auto) 73 % (37-80); Nucleated Red Blood Cell # 0.00 Thou/mm3 (0.00-0.00); Nucleated Red Blood Cell % 0 /100 WBC (0); Platelet Count 378 Thou/mm3 (140-440); RDW Standard Deviation 54.2 fL (36.4-46.3); Red Blood Count 2.12 Miln/mm3 (4.00-5.20); White Blood Count 3.8 Thou/mm3 (3.6-11.0)
[2025-03-14 11:57] LABS: INR 1.1 (0.9-1.3); Prothrombin Time 11.8 Seconds (9.0-12.2)
[2025-03-14 12:03] LABS: Hematocrit 16.0 % (36.0-46.0); Hemoglobin 4.4 g/dL (12.0-16.0)
--- NOTE | 2025-03-14 12:09 | PD.EDRME ---
Rapid Medical Screening Exam RME Arrival date/time: 03/14/25 09:59 Chief Complaint: Recheck/Abnormal Lab/Rx Time Seen by Provider: 03/14/25 10:38 Vital signs: Vital Signs Temperature 97.8 F 03/14/25 10:15 Pulse Rate 115 H 03/14/25 10:15 Respiratory Rate 20 03/14/25 10:15 Blood Pressure 109/78 03/14/25 10:15 Pulse Oximetry (%) 100 03/14/25 10:15 Oxygen Delivery Method Room Air 03/14/25 10:15 RME Narrative: 29-year-old female presents to the ER for transfusion for anemia as she is feeling generalized weakness. Denies any tarry in her stool or active menstruation. Patient states that she finished her last period about last month. I briefly performed a screening evaluation to initiate work-up and expedite care. Complete history, physical exam, and plan of care is deferred to the provider in the main ED. Exam: Head: Normocephalic, atraumatic. Respiratory: Normal effort. No respiratory distress or accessory muscle use. Neuro: Speech normal. Skin: Warm, dry, normal color. Psych: Pleasant. Normal affect. Cooperative. Clinical Impression: Anemia
[2025-03-14 12:10] LABS: Alanine Aminotransferase 9 U/L (10-49); Albumin, Serum 2.2 gm/dL (3.5-5.0); Albumin/Globulin Ratio 0.7 (1.2-2.2); Alkaline Phosphatase 80 U/L (46-116); Anion Gap 7 (7-16); Aspartate Amino Transferase 14 U/L (0-34); BUN/Creatinine Ratio 15 Ratio (12-20); Bilirubin,Total < 0.2 mg/dL (0.3-1.2); Blood Urea Nitrogen 9 mg/dL (9-23); Calcium 7.3 mg/dL (8.3-10.6); Calcium (Corrected) 8.7 mg/dL (8.5-10.1); Carbon Dioxide 20.8 mMol/L (20.0-31.0); Chloride 111 mMol/L (98-107); Creatinine (Component) 0.6 mg/dL (0.6-1.3); Estimated Creatinine Clearance 96.1 mL/min (>60); Globulin 3.3 gm/dL (2.3-3.5); Glucose 91 mg/dL (74-106); Osmolality,Calculated 276 (275-295); Potassium 3.8 mMol/L (3.4-5.1); Sodium 139 mMol/L (136-145); Total Protein 5.5 gm/dL (5.7-8.2); eGFR > 60 See Note
[2025-03-14 12:41] LABS: Path Review Blood Smear Sent to Pathologist
[2025-03-14] MEDS: ACETAMINOPHEN 500 MG TABLET PO ×2 (14:53→23:54)
--- NOTE | 2025-03-14 15:05 | PD.EDHA ---
ED Headache RME/HPI General Chief Complaint: Recheck/Abnormal Lab/Rx Stated Complaint: I THINK MY HGB IS LOW FATIGUE, HEADACHE Time Seen by Provider: 03/14/25 10:38 Arrival date/time: 03/14/25 09:59 29-year-old female patient was brought in by family for evaluation regarding anemia. Patient had history of severe anemia in the past, 2 weeks ago she had 7-day heavy menstruation. Currently she is not having menstruation. Patient also complained of generalized body weakness, easy fatigability, dizziness and headache. Patient was seen by academic centers, pending referral to [facility]. Denies any vomiting blood denies any blood in the stool. RME / HPI RME / HPI Narrative: 29-year-old female presents to the ER for transfusion for anemia as she is feeling generalized weakness. Denies any tarry in her stool or active menstruation. Patient states that she finished her last period about last month. I briefly performed a screening evaluation to initiate work-up and expedite care. Complete history, physical exam, and plan of care is deferred to the provider in the main ED. Exam: Head: Normocephalic, atraumatic. Respiratory: Normal effort. No respiratory distress or accessory muscle use. Neuro: Speech normal. Skin: Warm, dry, normal color. Psych: Pleasant. Normal affect. Cooperative. Impression: Anemia Related Data Previous Rx's ?Medication ?Instructions ?Recorded ferrous sulfate 325 mg (65 mg 325 mg PO EVERYOTHERDAY #30 tabs 05/18/24 iron) tablet (iron) famotidine 20 mg tablet 20 mg PO BID 1 month #60 tabs 11/17/24 cephalexin 500 mg capsule 500 mg PO TID #21 caps 11/30/24 azathioprine 50 mg tablet 50 mg PO QDAY #30 tabs 01/28/25 folic acid 1 mg tablet 1 mg PO QDAY #30 tabs 01/28/25 hydrocodone 5 mg-acetaminophen 300 1 tab PO Q6H PRN pain #10 tabs 01/28/25 mg tablet norethindrone 1.5 mg-ethinyl 1 tab PO QDAY #84 tabs 01/28/25 estradiol 30 mcg(21)/iron 75 mg(7) tablet (Loestrin Fe 1.5/30 (28-Day)) sulfasalazine 500 mg tablet 1,000 mg (2 x 500 mg) PO BID 30 01/28/25 days #120 tabs cefdinir 300 mg capsule 300 mg PO BID #14 caps 01/29/25 sumatriptan succinate 100 mg 100 mg PO Q2H PRN migraine 02/06/25 tablet (Imitrex) headache #9 tabs Allergies Allergy/AdvReac Type Severity Reaction Status Date / Time No Known Allergies Allergy Verified 03/14/25 10:03 Review of Systems Review of Systems Narrative Review of Systems: Review of system reviewed and within normal limits except mentioned in HPI ED Exam Narrative Physical exam: VITAL SIGNS: Reviewed. GENERAL APPEARANCE: Alert and interactive, follows commands, no acute distress, HEAD AND FACE: Non-traumatic. ENT: PERRL, pale conjunctiva, eyelid no trauma, Mucous membrane moist. NECK: Supple, nontender, no nuchal rigidity. CHEST: No tenderness, no crepitus, no paradoxical movement, no retractions. LUNGS: Clear, well ventilated, symmetric, no rales, no wheezing, no ronchi, no stridor, good breath sounds bilaterally. HEART: Regular rate, regular rhythm, no murmur, no gallops. ABDOMEN: Soft, positive bowel sounds, nondistended, no guarding, nontender, no rebound, no masses, RECTAL: Deferred. GENITAL: Deferred. NEUROLOGICAL: Gross motor function intact sensory function intact, Appropriate for age. MUSCULOSKELETAL: low back nontender, full range of motion. EXTREMITIES: Nontender, full range of motion. SKIN: Color pale, dry, no rash, no lacerations, no abrasions, no contusions. LYMPHATICS: Deferred. Course Quality Measures none Orders Category Date Time Status French Instructor Q4H START 00 Care 03/14/25 14:37 Active Insert IV NOW Care 03/14/25 14:37 Active Transfuse,blood/blood products ONCE Care 03/14/25 14:31 Active Diet Regular Diet 03/14/25 Dinner Active Antibody Identification Stat Lab 03/14/25 11:16 Completed CBC Stat Lab 03/14/25 11:16 Completed CMP [Comprehensive Metabolic Panel] Stat Lab 03/14/25 11:16 Completed INR [Prothrombin Time with INR] Stat Lab 03/14/25 11:16 [address]pleted Path Review Blood Smear Stat Lab 03/14/25 11:16 Completed Type and Screen Stat Lab 03/14/25 11:16 Completed prbc [Red Blood Cells] Stat Lab 03/14/25 11:16 Completed Acetaminophen Tab [Tylenol ES Tab] Med 03/14/25 14:36 Discontinued 500 mg PO X1 ONE Furosemide [Lasix] Med 03/14/25 20:27 Discontinued 20 mg PO X1 ONE Vital Signs Vital signs: Vital Signs Temperature 97.8 F 03/14/25 10:15 Pulse Rate 115 H 03/14/25 10:15 Respiratory Rate 20 03/14/25 10:15 Blood Pressure 109/78 03/14/25 10:15 Pulse Oximetry (%) 100 03/14/25 10:15 Oxygen Delivery Method Room Air 03/14/25 10:15 Headache MDM Narrative MDM Narrative:: 29-year-old female patient was brought in by family for evaluation regarding anemia. Patient had history of severe anemia in the past, 2 weeks ago she had 7-day heavy menstruation. Currently she is not having menstruation. Patient also complained of generalized body weakness, easy fatigability, dizziness and headache. Patient was seen by academic centers, pending referral to [facility]. Denies any vomiting blood denies any blood in the stool. Patient's hemoglobin was noted to be 4.4, hematocrit of 16 platelets normal electrolytes unremarkable. Patient was given option to be admitted for referral to [facility] however patient told me that she already had a pending [facility] referral by academic centers, waiting to be seen, and currently she is not having any bleeding. She just want blood transfusion. Patient received 3 units of packed RBC, with no complication noted. Patient was given Lasix in between 2nd and 3rd bag. Stable for discharge home Patient data External records reviewed:: None Clinical information provided by:: patient Social determinants that could affect healthcare access:: none Patient has the following chronic illnesses:: History of chronic anemia How is presenting disease/condition affected by chronic disease/condition?: exacerbated by Evaluation data The following diagnostics were reviewed and interpreted by me:: lab results Lab and/or radiology exams considered but not ordered:: None Interpretation Summary: See above Medications / Prescriptions Medications or Prescriptions considered but not ordered:: Plan Medication administrations:: Medication Administration History Discontinued Medications Acetaminophen (Acetaminophen 500 Mg Tablet) 500 mg PO X1 ONE Stop: 03/14/25 14:37 Last Admin: 03/14/25 14:53 Dose: 500 mg Documented By: BD Furosemide (Furosemide 20 Mg Tablet) 20 mg PO X1 ONE Stop: 03/14/25 20:28 Last Admin: 03/14/25 21:27 Dose: 20 mg Documented By: CAIN Tylenol Lasix and 3 units packed RBC Consultations Consultation(s) initiated? (list below): No Diagnosis Differential diagnosis headache: headache and other (Severe anemia history of menometrorrhagia) Most likely diagnosis given after review of the tests above:: Severe anemia Admission Indicated Admission indicated?: not indicated Admission Request Was there a request for admission?: No Disposition Plan Disposition Plan: Discharge Discharge Attestation Discharge Attestation: The patient was given an opportunity to ask questions and understood the discharge instructions. Discharge instructions specifically effects, indications for sooner follow up or return to the emergency department, and the expected course of current diagnosis. Patient condition: Stable Discharge Plan Plan Patient Disposition: HOME (Self Care) Discharge Disposition comment: Stable Prescriptions/Referrals Prescriptions/Med Rec: No Action norethindrone-e.estradiol-iron [Loestrin Fe 1.5/30 (28-Day)] 1.5 mg-30 mcg (21)/75 mg (7) tablet 1 tab PO QDAY Qty: 84 3RF Rx Instructions: Take 1 tablet per day as directed folic acid 1 mg tablet 1 mg PO QDAY Qty: 30 3RF azathioprine 50 mg tablet 50 mg PO QDAY Qty: 30 3RF sulfasalazine 500 mg tablet 1,000 mg PO BID 30 Days Qty: 120 3RF Rx Instructions: give with food (meal/snack) hydrocodone-acetaminophen 5-300 mg tablet 1 tab PO Q6H MDD 4 PRN (Reason: pain) Qty: 10 0RF sumatriptan succinate [Imitrex] 100 mg tablet 100 mg PO Q2H PRN (Reason: migraine headache) Qty: 9 0RF Rx Instructions: do not exceed 2 doses per 24 hrs and no more than 9 in one month famotidine 20 mg tablet 20 mg PO BID 30 Days Qty: 60 1RF ferrous sulfate [iron] 325 mg (65 mg iron) Tablet 325 mg PO EVERYOTHERDAY Qty: 30 0RF cefdinir 300 mg capsule 300 mg PO BID Qty: 14 0RF cephalexin 500 mg capsule 500 mg PO TID Qty: 21 0RF Referrals: Eran Strange MD [Primary Care Provider, Internal Medicine] - In 1 week Problem List Clinical Impression: Severe anemia Patient/Caregiver Discharge Instructions Discharge Activity: activity as tolerated Education Materials: Anemia Additional Instructions: Thank you for the opportunity for serving you today. You are stable for discharged . You are advised to: Follow-up with your PCP in 1 to 2 days Return to ED for worsening of symptoms Print Language: Korean Stand Alone Forms: [employer] Award Info., Patient Portal Info Letter PA/TELEPHOTO ENGINEER Supervising Physician PA/TELEPHOTO ENGINEER Supervising Physician: MD Clarisa
--- NOTE | 2025-03-14 23:29 | PC.NURSE ---
lasix given at later time than ordered due to order to give lasix after the completion of 2nd unit of blood
[2025-03-15 08:08] LABS: OBS Card Lot # 0124; OBS Performed By DIAZB; OBS QC OK? Yes; Occult Blood, Stool Negative (Negative)
== END 2025-03-14 23:56 | disposition home or self-care (01) ==
PROVIDERS: Physician Assistant; Emergency Provider Emergency Medicine
DX: D64.9 Anemia, unspecified (principal)
CPT/HCPCS: 36415; 36430; 80053; 82270; 85025; 85610; 86850; 86870; 86900; 86901; 86902; 86921; 86922; 99284; P9016; A9270